=== PATIENT | female | born 2000 | race African-American/Black ===

== ENCOUNTER 2024-01-07 10:55 | Inpatient (IN) | payer MEDICAID, SELFPAY ==
[2024-01-07] VITALS (7 sets, daily range): BP systolic 105–142; BP diastolic 45–88; PULSE 72–112; TEMP 36.8–37.1; O2SAT 96–98; BMI 15.4; BMI 15.9; BMI 15.7
--- NOTE | 2024-01-07 11:37 | US_ITS ---
[address] [address] Patient Name: ELIZABETH BARKER MRN: [id number] date: 2000 Sex: F Assigned Patient Location: ER Current Patient Location: ER Accession/Order Number: [id number] Exam Date: 01/07/2024 12:15 Report Date: 01/07/2024 13:00 At the request of: EDMOND LIVE Procedure: US OB limited EXAMINATION: US OB limited HISTORY: pelvic pain COMPARISON: No relevant comparison available. FINDINGS: position: Breech presentation, variable lie CRL: 6.71 cm, 13 weeks, 0 days Placenta: Anterior, the placenta covers the internal os. Grade 0. No intraplacental or retroplacental echogenic abnormality Heart rate: 170 beats minute Cervix: 3.9 cm, closed Clinical age: 30 weeks 3 days Clinical STAN: 07/11/2024 Ultrasound age: 30 weeks 0 days Ultrasound STAN: 07/14/2024 US/US OB limited IMPRESSION: Complete placenta previa Electronically authenticated by: DEMETRIUS BURNS Date: 01/07/2024 13:00
[2024-01-07] MEDS: 0.9 % SODIUM CHLORIDE 1,000 ML 999 ML IV (11:55)
[2024-01-07] MEDS: MORPHINE SULFATE 2 MG/ML SYRINGE IV (11:56)
[2024-01-07] MEDS: ONDANSETRON PF 4 MG/2 ML VIAL IV ×2 (11:56→23:33)
--- NOTE | 2024-01-07 11:58 | ED_ITS ---
HPI HPI - General Adult General Chief complaint: Abdominal Pain Stated complaint: ABDOMINAL PAIN Time Seen by Provider: 01/07/24 10:59 Source: patient Mode of arrival: Wheelchair Limitations: no limitations History of Present Illness HPI narrative: at 14 weeks presents to ED complaining of abdominal pain nausea and vomiting. Apparently this has been an issue for her since the beginning of her . She has had multiple visits and also hospital admission for acute nausea vomiting and abdominal pain. She last had an ultrasound 2 weeks ago that was normal at that time. She denies any loss of fluid, blood clots or vaginal bleeding. She does report severe lower abdominal cramping. Patient is mildly tachycardic and appears mildly dehydrated. Family reports that she has had low potassium during this because of her inability to keep anything down. She saw her [employer] [employer] this morning and they sent her over here for further evaluation. Patient is alert and oriented but complains of lower abdominal cramping and pain. No back pain. No chest pain no shortness of breath. Patient has not started vitamins yet because she has been unable to keep them down. No fevers no concerns for UTI or STDs. No symptoms of STD or UTI. Mom reports she was okay at home for about 4 5 days and now she is back to intractable nausea vomiting and lower stomach pain. Related Data Home Medications ?Medication ?Instructions ?Recorded ?Confirmed No Known Home Medications 01/07/24 01/07/24 Allergies Allergy/AdvReac Type Severity Reaction Status Date / Time No Known Drug Allergies Allergy Verified 01/07/24 11:42 Opioid HPI Opioid Management Most Recent Opioid Data: Last Pain Scale 4 01/07/24 11:56 01/07/24 Last MAR Pain Assessment 01/07/24 11:56 Review of Systems ROS Status of ROS 10 or more systems reviewed and unremark able except as noted in history and below [facility] Medical History (Updated 01/07/24 @ 14:26 by Betsy Hernandez DO) Constipation ?K59.00 - Constipation, unspecified (ICD-10) Social History Little interest or pleasure in doing things: not at all Feeling down, depressed, or hopeless: not at all Exam Narrative Exam Narrative: Time Seen: [] Vital Signs: [Per nurse's notes.] General: [Alert] mild distress from lower abdominal pain. Patient is thin Skin: [Warm, dry, no rash.] Head: [Normocephalic, atraumatic.] Neck: [Supple, trachea midline.] Eye: [Pupils are equal, round and reactive to light, extraocular movements are intact, normal conjunctiva.] Ears, nose, mouth and throat: oral mucosa moist. Cardiovascular: [Mild tachycardia, no murmur.] Respiratory: [Lungs are clear to auscultation, respirations are non-labored, breath sounds are equal.] Chest wall: [No tenderness, no deformity.] Gastrointestinal: [Soft, mild suprapubic tenderness, non distended, normal bowel sounds.] MSK: 5 out of 5 muscle strength x 4 extremities no calf pain or edema Lymphatics: [No lymphadenopathy.] Psychiatric: [Cooperative, appropriate mood & affect.] Neurological: [Alert and oriented to person, place, time, and situation, no focal neurological deficit observed.] Constitutional Vital Signs, click to edit/add: Last Vital Signs Temp 98.2 F 01/07/24 11:32 Pulse 102 H 01/07/24 11:32 Resp 18 01/07/24 11:32 BP 113/69 01/07/24 11:32 Pulse Ox 96 01/07/24 11:32 O2 Del Method Room Air 01/07/24 11:32 Course Vital Signs Vital signs: Vital Signs Temperature 98.8 F 01/07/24 10:59 Pulse Rate 112 H 01/07/24 10:59 Respiratory Rate 20 01/07/24 10:59 Blood Pressure 142/88 H 01/07/24 10:59 Pulse Oximetry 96 01/07/24 10:59 Oxygen Delivery Method Room Air 01/07/24 10:59 Temperature 98.2 F 01/07/24 11:32 Pulse Rate 102 H 01/07/24 11:32 Respiratory Rate 18 01/07/24 11:32 Blood Pressure 113/69 01/07/24 11:32 Pulse Oximetry 96 01/07/24 11:32 Oxygen Delivery Method Room Air 01/07/24 11:32 Medical Decision Making MDM Narrative Medical decision making narrative: Patient's labs show a low potassium and low magnesium. This is most likely from her persistent nausea vomiting. I called and spoke to Dr. Wilkins who requests medicine admit and they can consult him if necessary. Ultrasound other than placenta previa. There is nothing to do for the placenta previa at this point. Normal heart tones. Patient has no right lower quadrant pain or right upper quadrant pain. She reports that the pain is suprapubic and seems to be low down in the pelvic area where her uterus would be. No flank pain. patient continues to deny any vaginal bleeding. Patient and family are comfortable care plan for admission for rehydration and replenishment of her potassium and magnesium. Dr. Moore will admit Differential Diagnosis Differential Diagnosis: Hypokalemia hypomagnesemia dehydration threatened miscarriage hyperemesis g Lab Data Lab results reviewed: Yes I reviewed the patient's lab results Labs: Lab Results 01/07/24 Range/Units 11:50 WBC 15.2 H (4.0-11.0) 10^3/uL RBC 3.76 L (4.20-5.40) 10^6/uL Hgb 11.7 L (12.0-16.0) g/dL Hct 33.3 L (36.0-48.0) % MCV 88.6 (81.0-99.0) fL MCH 31.1 (26.7-34.0) pg MCHC 35.1 (29.9-35.2) g/dL RDW 14.0 (11.0-15.0) % Plt Count 275 (150-450) 10^3/uL MPV 10.2 (9.5-13.5) fL Neut % (Auto) 90.3 H (43.0-75.0) % Lymph % (Auto) 5.5 L (20.5-60.0) % [place] % (Auto) 3.4 (1.7-12.0) % Eos % (Auto) 0.0 L (0.9-7.0) % Baso % (Auto) 0.1 L (0.2-2.0) % Neut # (Auto) 13.7 H (1.4-6.5) 10^3/uL Lymph # (Auto) 0.8 L (1.2-3.8) 10^3/uL [place] # (Auto) 0.5 (0.3-0.8) 10^3/uL Eos # (Auto) 0.0 (0.0-0.7) 10^3/uL Baso # (Auto) 0.0 (0.0-0.1) 10^3/uL Abs Immat Gran (auto) 0.10 H (0.00-0.03) 10^3/uL Imm/Tot Granulo (auto) 0.7 H (0.0-0.5) % Sodium 139 (136-145) mmol/L Potassium 2.9 L* (3.5-5.1) mmol/L Chloride 99 (98-107) mmol/L Carbon Dioxide 22.2 (21.0-32.0) mmol/L Anion Gap 20.7 BUN 7.0 (7.0-18.0) mg/dL Creatinine 0.66 (0.55-1.02) mg/dL Est GFR ( Amer) >60 (>=60 mL/min/1.73m^2) Est GFR (Non-Af Amer) >60 (>=60 mL/min/1.73m^2) BUN/Creatinine Ratio 10.6 Glucose 117 H (74-106) mg/dL Calcium 9.4 (8.5-10.1) mg/dL Magnesium 1.7 L (1.8-2.4) mg/dL Total Bilirubin 0.9 (0.2-1.0) mg/dL AST 15 (15-37) U/L ALT 42 (14-59) U/L Alkaline Phosphatase 39 L (46-116) U/L Total Protein 7.3 (6.4-8.2) g/dL Albumin 4.0 (3.4-5.0) g/dL Globulin 3.3 g/dL Albumin/Globulin Ratio 1.2 Imaging Data US - abdomen: Radiologist's impression: ITS Impressions Obstetrics Ultrasound 01/07/24 11:37 IMPRESSION: Complete placenta previa Electronically authenticated by: DEMETRIUS BURNS Date: 01/07/2024 13:00 Discharge Plan Discharge Chief Complaint: Abdominal Pain Clinical Impression: Hyperemesis gravidarum, Hypokalemia, Hypomagnesemia Patient Disposition: Admitted as Observation Time of Disposition Decision: 14:26 Condition: Fair Prescriptions / Home Meds: No Action No Known Home Medications Print Language: Turkish Referrals: BROOKE SILVER [Primary Care Provider] - 1 week
[2024-01-07 12:17] LABS: Basophils Percent Auto 0.1 % (0.2-2.0); Hematocrit 33.3 % (36.0-48.0); Hemoglobin 11.7 g/dL (12.0-16.0); Immature Granulocytes Pct Auto 0.7 % (0.0-0.5); Lymphocytes Absolute Auto 0.8 10^3/uL (1.2-3.8); Lymphocytes Percent Auto 5.5 % (20.5-60.0); Mean Corpuscular HGB Conc 35.1 g/dL (29.9-35.2); Mean Corpuscular Hemoglobin 31.1 pg (26.7-34.0); Mean Corpuscular Volume 88.6 fL (81.0-99.0); Mean Platelet Volume 10.2 fL (9.5-13.5); Monocytes Absolute Auto 0.5 10^3/uL (0.3-0.8); Monocytes Percent Auto 3.4 % (1.7-12.0); Neutrophils Absolute Auto 13.7 10^3/uL (1.4-6.5); Neutrophils Percent Auto 90.3 % (43.0-75.0); Platelet Count 275 10^3/uL (150-450); Red Blood Count 3.76 10^6/uL (4.20-5.40); White Blood Count 15.2 10^3/uL (4.0-11.0)
[2024-01-07 12:36] LABS: Alanine Aminotransferase 42 U/L (14-59); Albumin Globulin Ratio 1.2; Alkaline Phosphatase 39 U/L (46-116); Anion Gap 20.7; Aspartate Amino Transferase 15 U/L (15-37); BUN Creatinine Ratio 10.6; Bilirubin Total 0.9 mg/dL (0.2-1.0); Calcium 9.4 mg/dL (8.5-10.1); Carbon Dioxide 22.2 mmol/L (21.0-32.0); Chloride 99 mmol/L (98-107); Estimated GFR (African America >60 (>=60 mL/min/1.73m^2); Estimated GFR (Non-African Ame >60 (>=60 mL/min/1.73m^2); Globulin 3.3 g/dL; Glucose 117 mg/dL (74-106); Sodium 139 mmol/L (136-145); Total Protein 7.3 g/dL (6.4-8.2)
[2024-01-07 12:44] LABS: Potassium 2.9 mmol/L (3.5-5.1)
[2024-01-07 13:04] LABS: Magnesium 1.7 mg/dL (1.8-2.4)
[2024-01-07] MEDS: POTASSIUM CHLORIDE 10 MEQ/100 ML WATER PREMIX 100 MEQ IV ×4 (13:04→16:58)
[2024-01-07] MEDS: MAGNESIUM SULFATE IN WATER 2 GM/50 ML PREMIX IV (14:34)
--- NOTE | 2024-01-07 15:27 | P.HP_ITS ---
HPI H&P: HPI History of Present Illness Chief complaint: ABDOMINAL PAIN HYPEREMESIS GRAVIDARU HYPOKALEMIA Narrative: Presented to the emergency room with increasing nausea vomiting. She is approximately 13 weeks . She has had issues with hyperemesis throughout the . In the emergency room found to have significant hypokalemia hypomagnesemia with leukocytosis. Patient will be admitted for workup and treatment of same. I saw patient up in the medical surgical floor, she indicated she had run out of her antinausea medication. She is feeling better with the IV medications and fluid is provided so far. Will reevaluate electrolytes later on tonight and in a.m. Opioid HPI Opioid Management Most Recent Pain and Opioid Data: Last Pain Scale 4 01/07/24 11:56 01/07/24 Last MAR Pain Assessment 01/07/24 11:56 Review of Systems ROS Status of ROS 10 or more systems reviewed and unremark able except as noted in history and below [facility] Medical History (Updated 01/07/24 @ 14:26 by Betsy Hernandez DO) Constipation ?K59.00 - Constipation, unspecified (ICD-10) Social History Little interest or pleasure in doing things: not at all Feeling down, depressed, or hopeless: not at all Meds Home Medications and Allergies Home Medications ?Medication ?Instructions ?Recorded ?Confirmed ?Type No Known Home Medications 01/07/24 01/07/24 History Allergies Allergy/AdvReac Type Severity Reaction Status Date / Time No Known Drug Allergies Allergy Verified 01/07/24 11:42 Exam Constitutional Vital Signs, click to edit/add: Last Vital Signs Temp 98.2 F 01/07/24 11:32 Pulse 102 H 01/07/24 11:32 Resp 18 01/07/24 11:32 BP 113/69 01/07/24 11:32 Pulse Ox 96 01/07/24 11:32 O2 Del Method Room Air 01/07/24 11:32 Documenting provider has reviewed patient's vital signs: yes Common normals: no apparent distress Chest Common normals: inspection of chest normal Respiratory Common normals: normal respiratory effort and no retractions Cardio Common normals: regular rate and regular rhythm; murmurs detected Heart sounds: murmur systolic GI Common normals: Normal to inspection, nondistended, normoactive bowel sounds present, soft to palpation and non-tender Results Labs Labs: Short CBC 01/07/24 Range/Units 11:50 WBC 15.2 H (4.0-11.0) 10^3/uL Hgb 11.7 L (12.0-16.0) g/dL Hct 33.3 L (36.0-48.0) % Plt Count 275 (150-450) 10^3/uL BMP 01/07/24 11:50 Sodium 139 Potassium 2.9 L* Chloride 99 Carbon Dioxide 22.2 BUN 7.0 Creatinine 0.66 Glucose 117 H Calcium 9.4 Liver Function 01/07/24 Range/Units 11:50 Total Bilirubin 0.9 (0.2-1.0) mg/dL AST 15 (15-37) U/L ALT 42 (14-59) U/L Alkaline Phosphatase 39 L (46-116) U/L Albumin 4.0 (3.4-5.0) g/dL Assessment and Plan Assessment and Plan (1) Hypomagnesemia: (2) Hypokalemia: (3) Hyperemesis gravidarum: (4) Constipation: Plan Admission findings: 13 weeks with significant hyperemesis resulting in tachycardia, hypokalemia, hypomagnesemia, leukocytosis with left shift likely demargination from the hyperemesis. Dehydration with hypokalemia and hypomagnesemia-those have been supplemented, continue with hydration. Repeat labs later on tonight and in a.m. Leukocytosis-likely demargination from the hyperemesis that she has no other infection symptoms. Checking urinalysis. Admission status: Patient with hyperemesis syndrome related to but resulting in hypokalemia and hypomagnesemia. She is likely to be improved in the morning. Medically necessary treatment likely to span 1 midnight. Observational status.
[2024-01-07 16:22] LABS: Lactate/Lactic Acid 2.5 mmol/L (0.4-2.0)
[2024-01-07 16:55] LABS: Anion Gap 17.7; BUN Creatinine Ratio 13.3; Calcium 8.8 mg/dL (8.5-10.1); Chloride 100 mmol/L (98-107); Estimated GFR (African America >60 (>=60 mL/min/1.73m^2); Estimated GFR (Non-African Ame >60 (>=60 mL/min/1.73m^2); Glucose 81 mg/dL (74-106); Potassium 3.7 mmol/L (3.5-5.1); Sodium 134 mmol/L (136-145)
[2024-01-07] MEDS: 0.9 % SODIUM CHLORIDE 1,000 ML 125 ML IV ×2 (16:58→23:33)
[2024-01-07] MEDS: MAGNESIUM OXIDE 400 MG TABLET PO (16:58)
[2024-01-07 17:03] LABS: Lactate/Lactic Acid 0.8 mmol/L (0.4-2.0)
[2024-01-07 18:50] LABS: Bilirubin Urine NEGATIVE (NEGATIVE); Blood Urine NEGATIVE (NEGATIVE); Clarity Urine CLEAR (CLEAR); Color Urine YELLOW (YELLOW); Glucose Urine UA NEGATIVE (NEGATIVE); Ketones Urine >=80 mg/dL (NEGATIVE); Leukocyte Esterase Urine NEGATIVE (NEGATIVE); Nitrite Urine NEGATIVE (NEGATIVE); Protein Urine 30 mg/dL (NEG/TRACE); Specific Gravity Urine >=1.030 (1.005-1.025)
[2024-01-07 19:03] LABS: Bacteria Urine NONE SEEN #/HPF (NONE SEEN); Cast Seen? SEEN #/LPF (NONE SEEN); Crystals Seen? None Seen #/HPF (None Seen); Hyaline Casts Urine RARE; Mucus Urine LARGE (NONE SEEN); RBC Urine 0-2 #/HPF (0-2); Squamous Epithelial Cell Urine MODERATE #/LPF (NONE/RARE); Urine Culture Indicated YES
[2024-01-08] VITALS (11 sets, daily range): BP systolic 103–136; BP diastolic 47–78; PULSE 68–85; TEMP 36.3–37.6; O2SAT 96–99
[2024-01-08 05:30] LABS: Basophils Percent Auto 0.3 % (0.2-2.0); Hematocrit 26.1 % (36.0-48.0); Hemoglobin 8.8 g/dL (12.0-16.0); Immature Granulocytes Abs Auto 0.07 10^3/uL (0.00-0.03); Immature Granulocytes Pct Auto 0.6 % (0.0-0.5); Lymphocytes Percent Auto 16.7 % (20.5-60.0); Mean Corpuscular HGB Conc 33.7 g/dL (29.9-35.2); Mean Corpuscular Hemoglobin 30.9 pg (26.7-34.0); Mean Corpuscular Volume 91.6 fL (81.0-99.0); Monocytes Absolute Auto 0.5 10^3/uL (0.3-0.8); Monocytes Percent Auto 4.4 % (1.7-12.0); Neutrophils Absolute Auto 9.3 10^3/uL (1.4-6.5); Platelet Count 198 10^3/uL (150-450); Red Blood Count 2.85 10^6/uL (4.20-5.40); Red Cell Distribution Width 14.3 % (11.0-15.0); White Blood Count 11.9 10^3/uL (4.0-11.0)
[2024-01-08 05:40] LABS: Anion Gap 15.1; BUN Creatinine Ratio 8.7; Calcium 8.4 mg/dL (8.5-10.1); Carbon Dioxide 21.2 mmol/L (21.0-32.0); Chloride 103 mmol/L (98-107); Estimated GFR (African America >60 (>=60 mL/min/1.73m^2); Estimated GFR (Non-African Ame >60 (>=60 mL/min/1.73m^2); Glucose 75 mg/dL (74-106); Potassium 3.3 mmol/L (3.5-5.1); Sodium 136 mmol/L (136-145)
[2024-01-08] MEDS: ACETAMINOPHEN 500 MG TABLET 1000 MG PO ×2 (08:13→20:32)
[2024-01-08] MEDS: 0.9 % SODIUM CHLORIDE 1,000 ML 125 ML IV ×2 (08:13→16:32)
[2024-01-08] MEDS: MAGNESIUM OXIDE 400 MG TABLET PO (08:13)
--- NOTE | 2024-01-08 08:40 | CM.NOTE ---
Rounds made with Dr. Moore, pt denies anymore nausea or emesis. Pt will discharge to home today and f/u with PCP.
--- NOTE | 2024-01-08 08:59 | P.DS_ITS ---
DS: Providers Provider Date of admission: 01/07/24 15:05 Primary care physician: BROOKE SILVER Consults: 01/07/24 Consult to Dietitian Routine Reason for consultation: weight loss with DS: Diagnosis Discharge Diagnosis (1) Hypomagnesemia: (2) Hypokalemia: (3) Hyperemesis gravidarum: (4) Constipation: Plan Admission findings: 13 weeks with significant hyperemesis resulting in tachycardia, hypokalemia, hypomagnesemia, leukocytosis with left shift likely demargination from the hyperemesis. Dehydration with hypokalemia and hypomagnesemia-those have been supplemented, continue with hydration. Repeat labs later on tonight and in a.m. Leukocytosis-likely demargination from the hyperemesis that she has no other infection symptoms. Checking urinalysis. Admission status: Patient with hyperemesis syndrome related to but resulting in hypokalemia and hypomagnesemia. She is likely to be improved in the morning. Medically necessary treatment likely to span 1 midnight. Observational status. ? DS: Summary Status at Discharge Overall status at discharge: patient is not back to baseline Time Spent with Patient Time attestation: Total time spent providing and/or coordinating discharge services: Time spent: greater than 30 minutes Exam Constitutional Vital Signs, click to edit/add: Last Vital Signs Temp 97.4 F L 01/08/24 08:15 Pulse 77 01/08/24 08:15 Resp 16 01/08/24 08:15 BP 136/78 01/08/24 08:15 Pulse Ox 98 01/08/24 08:15 O2 Del Method Room Air 01/08/24 08:15 DS: Data Data Completed and Pending Labs on day of discharge: Labs from last 24 hours 01/08/24 01/07/24 01/07/24 05:00 18:35 16:35 WBC 11.9 H RBC 2.85 L Hgb 8.8 L Hct 26.1 L MCV 91.6 MCH 30.9 MCHC 33.7 RDW 14.3 Plt Count 198 MPV 10.0 Neut % (Auto) 78.0 H Lymph % (Auto) 16.7 L [place] % (Auto) 4.4 Eos % (Auto) 0.0 L Baso % (Auto) 0.3 Neut # (Auto) 9.3 H Lymph # (Auto) 2.0 [place] # (Auto) 0.5 Eos # (Auto) 0.0 Baso # (Auto) 0.0 Abs Immat Gran (auto) 0.07 H Imm/Tot Granulo (auto) 0.6 H Sodium 136 134 L Potassium 3.3 L 3.7 Chloride 103 100 Carbon Dioxide 21.2 20.0 L Anion Gap 15.1 17.7 BUN 4.0 L 6.0 L Creatinine 0.46 L 0.45 L Est GFR ( Amer) >60 >60 Est GFR (Non-Af Amer) >60 >60 BUN/Creatinine Ratio 8.7 13.3 Glucose 75 81 Lactate 0.8 Calcium 8.4 L 8.8 Magnesium Total Bilirubin AST ALT Alkaline Phosphatase Total Protein Albumin Globulin Albumin/Globulin Ratio Lipase Urine Color Yellow Urine Clarity Clear Urine pH 6.0 Ur Specific [place] >=1.030 A Urine Protein 30 A Urine Glucose (UA) Negative Urine Ketones >=80 A Urine Occult Blood Negative Urine Nitrite Negative Urine Bilirubin Negative Urine Urobilinogen 1.0 Ur Leukocyte Esterase Negative Urine RBC 0-2 Urine WBC 5-10 A Ur Squamous Epith Cells Moderate A Urine Crystals None seen Urine Bacteria None seen Urine Casts Seen A Hyaline Casts Rare Urine Mucus Large A Ur Culture Indicated? Yes 01/07/24 11:50 WBC 15.2 H RBC 3.76 L Hgb 11.7 L Hct 33.3 L MCV 88.6 MCH 31.1 MCHC 35.1 RDW 14.0 Plt Count 275 MPV 10.2 Neut % (Auto) 90.3 H Lymph % (Auto) 5.5 L [place] % (Auto) 3.4 Eos % (Auto) 0.0 L Baso % (Auto) 0.1 L Neut # (Auto) 13.7 H Lymph # (Auto) 0.8 L [place] # (Auto) 0.5 Eos # (Auto) 0.0 Baso # (Auto) 0.0 Abs Immat Gran (auto) 0.10 H Imm/Tot Granulo (auto) 0.7 H Sodium 139 Potassium 2.9 L* Chloride 99 Carbon Dioxide 22.2 Anion Gap 20.7 BUN 7.0 Creatinine 0.66 Est GFR ( Amer) >60 Est GFR (Non-Af Amer) >60 BUN/Creatinine Ratio 10.6 Glucose 117 H Lactate 2.5 H* Calcium 9.4 Magnesium 1.7 L Total Bilirubin 0.9 AST 15 ALT 42 Alkaline Phosphatase 39 L Total Protein 7.3 Albumin 4.0 Globulin 3.3 Albumin/Globulin Ratio 1.2 Lipase 18.0 Urine Color Urine Clarity Urine pH Ur Specific [place] Urine Protein Urine Glucose (UA) Urine Ketones Urine Occult Blood Urine Nitrite Urine Bilirubin Urine Urobilinogen Ur Leukocyte Esterase Urine RBC Urine WBC Ur Squamous Epith Cells Urine Crystals Urine Bacteria Urine Casts Hyaline Casts Urine Mucus Ur Culture Indicated? Discharge Plan Discharge Disposition: Home, Self-Care Condition: Fair Discharge Medications: New ondansetron 4 mg tablet,disintegrating 4 mg PO Q6H PRN (Reason: nausea and vomiting) Qty: 60 11RF ferrous sulfate 325 mg (65 mg iron) tablet,delayed release (DR/EC) 325 mg PO BID Qty: 60 11RF Print Language: Cape Verdean Forms: Portal Instructions
[2024-01-08] MEDS: POTASSIUM CHLORIDE 10 MEQ ER TABLET 20 MEQ PO ×2 (10:31→20:33)
[2024-01-08] MEDS: ONDANSETRON PF 4 MG/2 ML VIAL IV ×2 (10:52→20:33)
[2024-01-08 15:49] LABS: Magnesium 1.8 mg/dL (1.8-2.4)
[2024-01-08] MEDS: POTASSIUM CHLORIDE 40 MEQ in 0.9 % SODIUM CHLORIDE 250 ML 67.5 MEQ IV (16:30)
[2024-01-08] MEDS: METOCLOPRAMIDE HCL 10 MG/2 ML VIAL IVP ×2 (16:32→20:33)
--- NOTE | 2024-01-08 18:39 | DIETREC ---
Diet consult completed; provided info on clear liquid and full liquid diets for use when experiencing N/V. Recommend starting with CL, advancing to FL and then soft foods as tolerated. Recommend 237 mL Ensure Original TID between meals or as meal replacement to add nutrients, as she is underweight and . Will continue to follow PRN.
--- NOTE | 2024-01-08 18:49 | P.PN_ITS ---
Progress Note: Subjective Subjective Interval history: Patient does feel little bit better but it has been early and she has not tried to eat anything yet this morning. Exam Constitutional Vital Signs, click to edit/add: Last Vital Signs Temp 98.5 F 01/08/24 16:16 Pulse 78 01/08/24 16:16 Resp 16 01/08/24 16:16 BP 136/68 01/08/24 16:16 Pulse Ox 99 01/08/24 16:16 O2 Del Method Room Air 01/08/24 16:16 Documenting provider has reviewed patient's vital signs: yes Common normals: no apparent distress Chest Common normals: inspection of chest normal Respiratory Common normals: normal respiratory effort and no retractions Cardio Common normals: regular rate and regular rhythm; murmurs detected Heart sounds: murmur systolic GI Common normals: Normal to inspection, nondistended, normoactive bowel sounds present, soft to palpation and non-tender Progress Note: Objective Labs Labs: Short CBC 01/08/24 Range/Units 05:00 WBC 11.9 H (4.0-11.0) 10^3/uL Hgb 8.8 L (12.0-16.0) g/dL Hct 26.1 L (36.0-48.0) % Plt Count 198 (150-450) 10^3/uL BMP 01/08/24 05:00 Sodium 136 Potassium 3.3 L Chloride 103 Carbon Dioxide 21.2 BUN 4.0 L Creatinine 0.46 L Glucose 75 Calcium 8.4 L Urine 01/07/24 Range/Units 18:35 Urine Color Yellow (YELLOW) Urine Clarity Clear (CLEAR) Urine pH 6.0 (5.0-9.0) Ur Specific [place] >=1.030 A (1.005-1.025) Urine Protein 30 A (NEG/TRACE) mg/dL Urine Glucose (UA) Negative (NEGATIVE) mg/dL Progress Note: A&P Assessment and Plan (1) Hypomagnesemia: (2) Hypokalemia: (3) Hyperemesis gravidarum: (4) Constipation: Plan Admission findings: 13 weeks with significant hyperemesis resulting in tachycardia, hypokalemia, hypomagnesemia, leukocytosis with left shift likely demargination from the hyperemesis. Dehydration with hypokalemia and hypomagnesemia-hypokalemia is improved as well as the hypomagnesemia but patient still continues to have hyperemesis, reviewed symptoms with nursing staff this afternoon, added Eliana, gave 1 dose of IV high magnesium and potassium. Reeval in a.m. Leukocytosis-likely demargination from the hyperemesis that she has no other infection symptoms.-Improving, urinalysis possibly positive but with negative nitrates would hold off on treatment till culture returns Admission status: Patient was hyperemesis during this significant dehydration with severe hypokalemia and hypomagnesemia, those levels are better but patient continues to have nausea vomiting. She was initially placed in observation. Having failed initial observational time. She will be changed to inpatient status.
[2024-01-08] MEDS: MAGNESIUM SULFATE IN WATER 2 GM/50 ML PREMIX IV (20:32)
[2024-01-09 00:38] VITALS: BP 111/56; PULSE 76; TEMP 36.8; O2SAT 94
[2024-01-09] MEDS: METOCLOPRAMIDE HCL 10 MG/2 ML VIAL IVP ×2 (03:59→09:24)
[2024-01-09 04:13] VITALS: BP 113/51; PULSE 82; TEMP 36.8; O2SAT 97
[2024-01-09 05:06] LABS: Basophils Percent Auto 0.3 % (0.2-2.0); Eosinophils Percent Auto 0.1 % (0.9-7.0); Hematocrit 27.1 % (36.0-48.0); Immature Granulocytes Abs Auto 0.06 10^3/uL (0.00-0.03); Immature Granulocytes Pct Auto 0.5 % (0.0-0.5); Lymphocytes Absolute Auto 2.9 10^3/uL (1.2-3.8); Lymphocytes Percent Auto 26.2 % (20.5-60.0); Mean Corpuscular HGB Conc 33.2 g/dL (29.9-35.2); Mean Corpuscular Hemoglobin 30.8 pg (26.7-34.0); Mean Corpuscular Volume 92.8 fL (81.0-99.0); Mean Platelet Volume 10.2 fL (9.5-13.5); Monocytes Absolute Auto 0.6 10^3/uL (0.3-0.8); Monocytes Percent Auto 5.5 % (1.7-12.0); Neutrophils Absolute Auto 7.4 10^3/uL (1.4-6.5); Neutrophils Percent Auto 67.4 % (43.0-75.0); Platelet Count 181 10^3/uL (150-450); Red Blood Count 2.92 10^6/uL (4.20-5.40); Red Cell Distribution Width 14.3 % (11.0-15.0); White Blood Count 10.9 10^3/uL (4.0-11.0)
[2024-01-09 05:23] LABS: BUN Creatinine Ratio 6.7; Calcium 7.8 mg/dL (8.5-10.1); Carbon Dioxide 17.7 mmol/L (21.0-32.0); Chloride 107 mmol/L (98-107); Estimated GFR (African America >60 (>=60 mL/min/1.73m^2); Estimated GFR (Non-African Ame >60 (>=60 mL/min/1.73m^2); Glucose 59 mg/dL (74-106); Potassium 3.7 mmol/L (3.5-5.1); Sodium 140 mmol/L (136-145)
[2024-01-09 07:42] VITALS: BP 110/53; PULSE 83; TEMP 36.7; O2SAT 98
[2024-01-09] MEDS: 0.9 % SODIUM CHLORIDE 1,000 ML 125 ML IV ×2 (07:52)
--- NOTE | 2024-01-09 08:19 | CM.NOTE ---
Rounds made with Dr. Moore. Potential discharge today if tolerates po intake. Follow up with [facility] [facility].
--- NOTE | 2024-01-09 09:04 | P.DS_ITS ---
DS: Providers Provider Date of admission: 01/08/24 18:51 Primary care physician: BROOKE RODRIGUEZ Consults: 01/07/24 Consult to Dietitian Routine Reason for consultation: weight loss with DS: Diagnosis Discharge Diagnosis (1) Hypomagnesemia: (2) Hypokalemia: (3) Hyperemesis gravidarum: (4) Constipation: Plan Admission findings: 13 weeks with significant hyperemesis resulting in tachycardia, hypokalemia, hypomagnesemia, leukocytosis with left shift likely demargination from the hyperemesis. Dehydration with hypokalemia and hypomagnesemia-hypokalemia is improved as well as the hypomagnesemia but patient still continues to have hyperemesis, reviewed symptoms with nursing staff this afternoon, added Reglan, gave 1 dose of IV high magnesium and potassium. Reeval in a.m. Leukocytosis-likely demargination from the hyperemesis that she has no other infection symptoms.-Improving, urinalysis possibly positive but with negative nitrates would hold off on treatment till culture returns Admission status: Patient was hyperemesis during this significant dehydration with severe hypokalemia and hypomagnesemia, those levels are better but patient continues to have nausea vomiting. She was initially placed in observation. Having failed initial observational time. She will be changed to inpatient status. ? DS: Summary Hospital Course Hospital Course: Patient 13 weeks presented to the emergency room increasing nausea vomiting. Unable to control that in the emergency room. She has 6 significant hypokalemia and hypomagnesemia. She was given IV boluses of those. The following day she still with significant emesis. Unable to control her nausea vomiting requiring Reglan. Reglan did not seem to be effective. She was able to eat breakfast this morning. With that she feels improved. At this point we will discharge patient to home in improving condition. Medications see list. Follow-up with OB within the next few days. Status at Discharge Overall status at discharge: patient is back to baseline Time Spent with Patient Time attestation: Total time spent providing and/or coordinating discharge services: Time spent: greater than 30 minutes Exam Constitutional Vital Signs, click to edit/add: Last Vital Signs Temp 98.0 F 01/09/24 07:42 Pulse 83 01/09/24 07:42 Resp 16 01/09/24 07:42 BP 110/53 01/09/24 07:42 Pulse Ox 98 01/09/24 07:42 O2 Del Method Room Air 01/09/24 07:42 Documenting provider has reviewed patient's vital signs: yes Common normals: no apparent distress Chest Common normals: inspection of chest normal Respiratory Common normals: normal respiratory effort and no retractions Cardio Common normals: regular rate and regular rhythm; murmurs detected Heart sounds: murmur systolic GI Common normals: Normal to inspection, nondistended, normoactive bowel sounds present, soft to palpation and non-tender DS: Data Data Completed and Pending Labs on day of discharge: Labs from last 24 hours 01/09/24 01/08/24 04:37 05:00 WBC 10.9 RBC 2.92 L Hgb 9.0 L Hct 27.1 L MCV 92.8 MCH 30.8 MCHC 33.2 RDW 14.3 Plt Count 181 MPV 10.2 Neut % (Auto) 67.4 Lymph % (Auto) 26.2 [place] % (Auto) 5.5 Eos % (Auto) 0.1 L Baso % (Auto) 0.3 Neut # (Auto) 7.4 H Lymph # (Auto) 2.9 [place] # (Auto) 0.6 Eos # (Auto) 0.0 Baso # (Auto) 0.0 Abs Immat Gran (auto) 0.06 H Imm/Tot Granulo (auto) 0.5 Sodium 140 Potassium 3.7 Chloride 107 Carbon Dioxide 17.7 L Anion Gap 19.0 BUN 3.0 L Creatinine 0.45 L Est GFR ( Amer) >60 Est GFR (Non-Af Amer) >60 BUN/Creatinine Ratio 6.7 Glucose 59 L Calcium 7.8 L Magnesium 1.8 Discharge Plan Discharge Disposition: Home, Self-Care Condition: Fair Discharge Medications: New ondansetron 4 mg tablet,disintegrating 4 mg PO Q6H PRN (Reason: nausea and vomiting) Qty: 60 11RF ferrous sulfate 325 mg (65 mg iron) tablet,delayed release (DR/EC) 325 mg PO BID Qty: 60 11RF metoclopramide HCl [Reglan] 5 mg tablet 5 mg PO ACHS Qty: 60 11RF Activity: resume usual activities as tolerated Diet: advance to your usual diet Print Language: Croatian Patient Instructions: Iron Supplements (By mouth), Metoclopramide (By mouth), Ondansetron (By mouth), Hyperemesis Gravidarum (DC) Forms: Portal Instructions Follow Up Appointments: @ 9:30am with Dr. Rodriguez [phone] Discharge Date/Time: 01/09/24 11:52
[2024-01-09] MEDS: POTASSIUM CHLORIDE 10 MEQ ER TABLET 20 MEQ PO (09:24)
[2024-01-09] MEDS: MAGNESIUM OXIDE 400 MG TABLET PO (09:24)
--- NOTE | 2024-01-13 11:49 | CM.DCFOLLOWU ---
1st attempt 01/13/24, no answer
--- NOTE | 2024-01-14 15:05 | CM.DCFOLLOWU ---
2nd attempt 01/14/24, no answer
== END 2024-01-09 11:52 | disposition home or self-care (01) | DRG 566 ==
LOC: ER 14:26 → MS 15:36
PROVIDERS: Admitting Provider Family Medicine; Emergency Provider Emergency Medicine; PCP Family Medicine; Visit Provider Family Medicine
DX: O21.0 Mild hyperemesis gravidarum (principal); O99.891 Other specified diseases and conditions complicating pregnancy; O26.891 Other specified pregnancy related conditions, first trimester; O99.281 Endocrine, nutritional and metabolic diseases complicating pregnancy, first trimester; E83.42 Hypomagnesemia; E86.0 Dehydration; E87.6 Hypokalemia; K59.00 Constipation, unspecified; D72.829 Elevated white blood cell count, unspecified; Z3A.13 13 weeks gestation of pregnancy
CPT/HCPCS: 36415; 76815; 80048; 80053; 81001; 83605; 83690; 83735; 85025; 87086; 94761; 96361; 96365; 96366; 96368; 96375; 96376; 99285; G0378; J2270; J2405; J2765; J3475; J3480

== ENCOUNTER 2024-01-31 09:35 | Outpatient (OUT) | payer OTHER, SELFPAY ==
--- NOTE | 2024-01-31 | US_ITS ---
[address] [address] Patient Name: ELIZABETH BARKER MRN: [id number] date: 2000 Sex: F Assigned Patient Location: US Current Patient Location: Accession/Order Number: [id number] Exam Date: 01/31/2024 09:41 Report Date: 02/01/2024 04:52 At the request of: RENNY MARTINES Procedure: US OB anatomy EXAMINATION: US OB anatomy HISTORY: Related Condition COMPARISON: Ultrasound OB limited 01/07/2024 TECHNIQUE: Transabdominal sonographic examination was performed for obstetrical and evaluation. FINDINGS: Number: 1 Heart Rate: 153.41 bpm Amniotic Fluid Volume: Subjectively normal Placental Location: ANTERIOR with lower margin 3.4 cm from internal os. Cervix Length: 3.66 cm ; closed. ANATOMY: Normal Structures -cerebellum, choroid plexus, cisterna magna, lateral cerebral ventricles, orbits, midline falx, hard palate, RVOT, LVOT, stomach, kidneys, bladder, three-vessel cord, cervical spine, thoracic spine, lumbar spine, sacral spine, right upper extremity, left upper extremity, right lower extremity, left lower extremity. SUBOPTIMALLY SEEN: Abdominal cord insertion of umbilical cord. ABNORMALITIES: Echogenic focus within the left cardiac ventricle. BIOMETRY: BPD: 3.60 cm; 17 weeks 0 days; 57.40 % HC: 13.74 cm; 17 weeks 1 day; 55.80 % AC: 11.58 cm; 17 weeks 2 days; 66.60 % FL: 2.20 cm; 16 weeks 4 days; 34.20 % EFW:177.14 g; 52.60 % FL/AC: 19.00 FL/BPD: 61.19 HC/AC: 1.19 GESTATIONAL AGE: Age by EDC: 16 weeks 6 days Age by current US: 17 weeks 0 days STAN by current US: 2024-07-10 STAN by EDC: 2024-07-11 US/US OB anatomy IMPRESSION: 1. Single live intrauterine with growth detailed above. 2. Echogenic focus within the left cardiac ventricle; nonspecific but typically associated with the trisomy syndromes. No additional suspicious anatomic finding. 3. Inadequate visualization of the umbilical cord abdominal insertion into to position. Electronically authenticated by: MARGARITO DOMINGUEZ Date: 02/01/2024 04:52
== END 2024-01-31 09:36 | disposition home or self-care (01) ==
LOC: US 09:35
PROVIDERS: PCP Family Medicine; Visit Provider Midwife
DX: O26.92 Pregnancy related conditions, unspecified, second trimester (principal); Z3A.17 17 weeks gestation of pregnancy
CPT/HCPCS: 76805

== ENCOUNTER 2024-02-21 11:28 | Outpatient (OUT) | payer OTHER, SELFPAY ==
--- NOTE | 2024-02-21 11:30 | US_ITS ---
The [address] [address] Patient Name: ELIZABETH BARKER MRN: [facility]:[id number] date: 2000 Sex: F Assigned Patient Location: US Current Patient Location: US Accession/Order Number: [id number] Exam Date: 02/21/2024 11:45 Report Date: 02/21/2024 16:22 At the request of: RENNY MARTINES Procedure: US OB incomplete anatomy EXAM: US OB incomplete anatomy HISTORY: Related Condition Second Trimester O26.92 COMPARISON: Ultrasound OB anatomy 01/31/2024 TECHNIQUE: Transabdominal ultrasound FINDINGS: Heart rate: 151 bpm Amniotic fluid: Subjectively normal Placenta: Anterior with lower margin 1.0 cm from internal os. Anatomy: Echogenic focus within left cardiac ventricle. Adequate visualization of abdominal cord insertion. GA: 20 weeks 2 days STAN: 07/08/2024 US/US OB incomplete anatomy IMPRESSION: 1. Single live intrauterine . 2. Echogenic focus within left cardiac ventricle; nonspecific but can be associated with the trisomy syndromes. 3. No appreciable abnormality of the abdominal cord insertion. 4. Placenta appears to be low lying on today's study, but wasn't on prior study. This could be due to contraction, but no significant contraction is appreciated. Consider follow-up. Electronically authenticated by: MARGARITO DOMINGUEZ Date: 02/21/2024 16:22
--- OUTSIDE RECORDS SUMMARY | 2024-02-21 11:32 | XMS_ITS | CCD ---
Author Organization [facility] Inform ion Partnership [facility] Care Team Providers Care Mill Supervisor Name Role Phone MD Paulina Rodriguez Primary Care Provider DO Telly Moreno Emergency Provider [phone] Unavailable Primary Care Provider Paulina Bean MD Primary Care Provider RENNY GIL Attending Unavailable RENNY GIL Attending Unavailable RENNY GIL Attending Unavailable Medications Current Medications Medication Drug Class(es) Dates Sig (Normalized) Sig (Original) docusate sodium 100 mg oral capsule (4 sources) Start: 12-13-2023 docusate sodium (Colace) 100 MG capsule 100 mg 12/13/2023 Active ferrous sulfate 325 mg delayed release oral tablet (6 sources) Start: 01-28-2024 End: 01-27-2025 take 1 tablet by mouth once in the morning ferrous sulfate (Fe Tabs) 325 (65 Fe) MG EC tablet Indications: Anemia during in second trimester Take 1 tablet (325 mg) by mouth in the morning and 1 tablet (325 mg) in the evening. Take with meals. Do not crush, chew, or split.. 60 tablet 6 01/28/2024 01/27/2025 Active take 1 tablet by mouth at mealti me ferrous sulfate 325 (65 Fe) MG tablet Take 325 mg by mouth in the morning. Take with meals. Active metoclopramide 10 mg oral tablet (4 sources) Dopamine-2 Receptor Antagonist Start: 12-20-2023 metoclopramide (Reglan) 10 MG tablet Take by mouth every 6 (six) hours 12/20/2023 Active ondansetron 4 mg disintegrating oral tablet (4 sources) Serotonin-3 Receptor Antagonist Start: 12-20-2023 take 2 tablets by mouth every eight hours as needed ondansetron ODT (Zofran-ODT) 4 MG disintegrating tablet Take 8 mg by mouth every 8 (eight) hours if needed 12/20/2023 Active MV & Min w/FA-DHA ( Gummies) 0.18-25 MG chewable tablet (4 sources) Start: 01-14-2024 End: 02-13-2024 MV & Min w/FA-DHA ( Gummies) 0.18-25 MG chewable tablet Indications: examination or test, positive result Chew 1 tablet Daily 30 tablet 11 01/14/2024 02/13/2024 Active Vit-Fe Fumarate-FA ( Vitamins) 28-0.8 MG tablet (2 sources) Start: 01-28-2024 End: 01-27-2025 take 1 tablet by mouth once daily Vit-Fe Fumarate-FA ( Vitamins) 28-0.8 MG tablet Indications: 16 weeks gestation of Take 1 tablet by mouth Daily 30 tablet 11 01/28/2024 01/27/2025 Active Problems Problem Classification Problem Date Documented Da te Episodic/Chronic Abdominal pain (1 source) Abdominal pain; Translations: [Unspecified abdominal pain] 10-19-2021 Episodic Other complications of (2 sources) Anemia of ; Translations: [Anemia complicating , second trimester] 01-28-2024 Chronic Other complications of (2 sources) Hyperemesis gravidarum; Translations: [Mild hyperemesis gravidarum] 01-14-2024 Episodic Other complications of (2 sources) Finding related to ; Translations: [ related conditions, unspecified, second trimester] 01-28-2024 Episodic Other and delivery including normal (6 sources) Second trimester ; Translations: [Encounter for supervision of normal first , second trimester] 01-14-2024 Episodic Residual codes; unclassified (2 sources) Gestation period, 16 weeks; Translations: [16 weeks gestation of ] 01-28-2024 Episodic Results Test Name Value Interpretation Reference Range Facil ity Automated erythrocytes count in urine sediment (number/area)Ordered By: Telly Moreno on 10-19-2021 RBC Auto (Urine sed) [#/Area] 0-1 [HPF] 0-4 [facility] Automated leukocytes count i n urine sediment (number/area)Ordered By: Tellyrosalind Moreno on 10-19-2021 WBC Auto (Urine sed) [#/Area] 1-2 [HPF] 0-4 [facility] Bilirubin Test strip Ql (U)O rdered By: Telly Kwonzi on 10-19-2021 Bilirubin Ql (U) Negative Negative [facility] Color Auto (U)Ordered By: Armani Moreno on 10-19-2021 Color (U) Yellow Yellow [facility] Dipstick and Microscopicon 0 10-19-2021 Appearance (U) Clear Normal Clear [facility] Comment on above: Order Comment: Name Collection Type:: Clean-Voided Midstream Performed By: #### U HCG, ADDONUAPLUS #### [facility] [address] [id number] [place] Bacteria,Urine None Seen Normal None Seen [facility] Comment on above: Order Comment: Name Collection Type:: Clean-Voided Midstream Performed By: #### U HCG, ADDONUAPLUS #### [facility] [address] [id number] [place] Bilirubin,Urine Negative Normal Negative [facility] Comment on above: Order Comment: Name Collection Type:: Clean-Voided Midstream Performed By: #### U HCG, ADDONUAPLUS #### [facility] [address] [place] [address] [place] Color (U) Yellow Normal Yellow [facility] Comment on above: Order Comment: Name Collection Type:: Clean-Voided Midstream Performed By: #### U HCG, ADDONUAPLUS #### [facility] [address] [place] [address] [place] Glucose Ql (U) Normal Normal Normal [facility] Comment on above: Order Comment: Name Collection Type:: Clean-Voided Midstream Performed By: #### U HCG, ADDONUAPLUS #### [facility] [address] [id number] [place] Hyaline Casts,Urine 0-8 Normal 0-8 [facility] Comment on above: Order Comment: Name Collection Type:: Clean-Voided Midstream Performed By: #### U HCG, ADDONUAPLUS #### [address] Ketones Ql (U) Trace High Negative [facility] Comment on above: Order Comment: Name Collection Type:: Clean-Voided Midstream Performed By: #### U HCG, ADDONUAPLUS #### [address] Leukocyte esterase Test strip Ql (U) Negative Normal Negative [facility] Comment on above: Order Comment: Name Collection Type:: Clean-Voided Midstream Performed By: #### U HCG, ADDONUAPLUS #### [place] [address] [place] Nitrite,Urine Negative Normal Negative [facility] Comment on above: Order Comment: Name Collection Type:: Clean-Voided Midstream Performed By: #### U HCG, ADDONUAPLUS #### [address] Occult Blood,Urine Trace High Negative [facility] Comment on above: Order Comment: Name Collection Type:: Clean-Voided Midstream Performed By: #### U HCG, ADDONUAPLUS #### [address] pH (U) 6.5 [pH] Normal 5.0-9.0 [facility] Comment on above: Order Comment: Name Collection Type:: Clean-Voided Midstream Performed By: #### U HCG, ADDONUAPLUS #### [place] [address] [place] Protein,Urine Trace High Negative [facility] Comment on above: Order Comment: Name Collection Type:: Clean-Voided Midstream Performed By: #### U HCG, ADDONUAPLUS #### [place] [address] [place] RBC LM.HPF (Urine sed) [#/Area] 0 /[HPF] Normal 0-4 [facility] Comment on above: Order Comment: Name Collection Type:: Clean-Voided Midstream Performed By: #### U HCG, ADDONUAPLUS #### [facility] [address] [place] [address] Specificy [place],Urine 1.030 Normal 1.001-1.030 [facility] Comment on above: Order Comment: Name Collection Type:: Clean-Voided Midstream Performed By: #### U HCG, ADDONUAPLUS #### [facility] [address] [place] [address] Squamous Epithelial Cell,Urine 3-4 High 0-2 [facility] Comment on above: Order Comment: Name Collection Type:: Clean-Voided Midstream Performed By: #### U HCG, ADDONUAPLUS #### [facility] [address] [place] [address] Urobilinogen,Urine >=[address] [facility] Comment on above: Order Comment: Name Collection Type:: Clean-Voided Midstream Performed By: #### U HCG, ADDONUAPLUS #### [facility] [address] [place] [address] WBC,Urine 1-2 Normal 0-4 [facility] Comment on above: Order Comment: Name Collection Type:: Clean-Voided Midstream Performed By: #### U HCG, ADDONUAPLUS #### [facility] [address] [place] [address] HCG ( test) IA.rapi d Ql (U)Ordered By: PABLO WHITFIELD on 10-19-2021 HCG ( test) Ql (U) Negative [facility] HCG,Urineon 10-19-2021 Beta HCG ( test) Ql (U) Negative Normal [facility] Comment on above: Order Comment: Name Collection Type:: Clean-Voided Midstream Result Comment: PERF ORMED BY: [address] [place] [address] PATHOLOGIST [employer] ADJUSTER MELVA KUHN M.D. Performed By: #### U HCG, ADDONUAPLUS #### [facility] [address] [place] [address] Ketones Auto test strip (U) [Mass/Vol]Ordered By: Telly Moreno on 10-19-2021 Ketones (U) [Mass/Vol] Trace Negative [facility] - UrinalysisOrder ed By: Telly Moreno on 10-19-2021 Hyaline casts LM Ql (Urine sed) 0-8 [LPF] 0-8 [facility] Nitrite Test strip Ql (U)Ord ered By: Telly Moreno on 10-19-2021 Nitrite Ql (U) Negative Negative [facility] Protein Auto test strip (U) [Mass/Vol]Ordered By: Telly Moreno on 10-19-2021 Protein (U) [Mass/Vol] Trace mg/dL Negative F [facility] Specific gravity Auto test s trip (U) [Rel density]Ordered By: Telly Moreno on 10-19-2021 Specific gravity (U) [Rel density] 1.030 1.001-1.030 [facility] Squamous epithelial cells de tection in urine sediment by light microscopyOrdered By: Telly Moreno on 10-19-2021 Epithelial cells.squamous LM Ql (Urine sed) 3-4 [HPF] 0-2 [facility] Urine bacteria detection by automated methodOrdered By: Telly Moreno on 10-19-2021 Bacteria Auto Ql (U) None seen None Seen [facility] Urine clarity by refractomet ry automatedOrdered By: Telly Moreno on 10-19-2021 Clarity Refractometry automated (U) Clear Clear [facility] Urine glucose measurement by automated test strip (mass/volume)Ordered By: Telly Moreno on 10-19-2021 Glucose Auto test strip (U) [Mass/Vol] Normal mg/dL Normal [facility] Urine hemoglobin detection b y automated test stripOrdered By: Telly Moreno on 10-19-2021 Hemoglobin Auto test strip Ql (U) Trace Negative [facility] Urine leukocyte esterase det ection by automated test stripOrdered By: Telly Moreno on 10-19-2021 Leukocyte esterase Auto test strip Ql (U) Negative Negative [facility] Urobilinogen Auto test strip (U) [Mass/Vol]Ordered By: Telly Moreno on 10-19-2021 Urobilinogen (U) [Mass/Vol] mg/dL Normal [facility] pH Auto test strip (U)Ordere d By: Telly Moreno on 10-19-2021 pH (U) 6.5 [pH] 5.0-9.0 [facility] Vital Signs Date Time Vital Sign Value Performing Clinician Facility 01-28-2024 09:26-0500 Body mass index (BMI) [Ratio] 17.68 kg/m2 Renny WEAVER Work Phone: [facility] 01-28-2024 09:26-0500 Body weight 46.72 kg Renny WEAVER Work Phone: [facility] 01-14-2024 08:56-0500 Body mass index (BMI) [Ratio] 15.45 kg/m2 Renny Gil CN Work Phone: [facility] 01-14-2024 08:56-0500 Body weight 40.82 kg Renny WEAVERM Work Phone: [facility] 01-14-2024 08:56-0500 Diastolic blood pressure 70 mm[Hg] Renny WEAVER Work Phone: [facility] 01-14-2024 08:56-0500 Systolic blood pressure 110 mm[Hg] Renny WEAVER Work Phone: [facility] 10-19-2021 20:03-0400 Body temperature 99 [degF] MD Paulina Rodriguez Work Phone: [facility] 10-19-2021 20:03-0400 Diastolic blood pressure 56 mm[Hg] MD Paulina Rodriguez Work Phone: [facility] 10-19-2021 20:03-0400 Heart rate 70 /min MD Paulina Rodriguez Work Phone: [facility] 10-19-2021 20:03-0400 Respiratory rate 18 /min MD Paulina Rodriguez Work Phone: [facility] 10-19-2021 20:03-0400 SaO2% (BldA) [Mass fraction] 99 % MD Paulina Rodriguez Work Phone: [facility] 10-19-2021 20:03-0400 Systolic blood pressure 118 mm[Hg] MD Paulina Rodriguez Work Phone: [facility] 10-19-2021 17:13-0400 Body height 157.48 cm MD Paulina Rodriguez Work Phone: [facility] 10-19-2021 17:130400 Body weight 52.45 kg MD Paulina Rodriguez Work Phone: [facility] Encounters Encounter Date Encounter Type Care Provider Facility Start: 01-28-2024 ambulatory RENNY Soledad NORMANO Not Rosio ilable Start: 01-28-2024 End: 01-28-2024 Subsequent care visit Renny Normano CNM Work Phone: [facility] Comment on above: Anemia during pregna ncy in second trimester (Primary Dx); related condition in second trimester; 16 weeks gestation of Start: 01-14-2024 End: 01-14-2024 Bamboo flowsheet Renny L Floro CNM Work Phone: [facility] Start: 01-14-2024 End: 01-14-2024 Bamboo flowsheet Renny L Estero CNM Work Phone: [facility] Start: 01-14-2024 End: 01-14-2024 ambulatory RENNY Soledad NORMANO Not Available Start: 01-14-2024 End: 01-14-2024 Initial care visit Renny Normano CNM Work Phone: [facility] Comment on above: GA: 14w6d Start: 01-07-2024 End: 01-07-2024 Bamboo flowsheet Renny L Floro CNM Work Phone: [facility] Start: 01-07-2024 End: 01-07-2024 Bamboo flowsheet Renny L Floro CNM Work Phone: [facility] Start: 01-07-2024 End: 01-07-2024 ambulatory RENNY GIL Not Available Start: 12-31-2023 End: 12-31-2023 Telephone encounter Renny Gil CNJonathan Work Phone: [facility] Start: 10-19-2021 End: 10-19-2021 Emergency department patient visit MD Paulina Rodriguez Work Phone: [facility] Plan of Treatment Date Care Activity Detail Author Start: 02-27-2024 End: 02-27-2024 Patient encounter procedure 02/27/2024 8:30 AM EST Routine [facility] [address] [place] [id number] Renny Gil, CNM [address] [place] [address] [facility] Start: 01-28-2024 End: 01-27-2025 US for US OB 14+ weeks anatomy scan Imaging Routine related condition in second trimester Expected: 01/28/2024, Expires: 01/27/2025 [facility] Work Phone: Comment on above: Expected: 01/28/2024 , Expires: 01/27/2025 Start: 01-28-2024 End: 01-28-2024 Patient encounter procedure 01/28/2024 8:30 AM EST Routine [facility] [address] [place] [id number] Renny Gil, CNM [address] [place] [address] [facility] Start: 01-15-2024 End: 01-15-2024 ambulatory 01/15/2024 1:00 PM EST Initial [facility] [address] [place] [id number] Renny Gil, ALEIDA [address] [place] [address] [facility] Start: 01-14-2024 End: 2025 ABO/Rh ABO/Rh Lab Routine examination or test, positive result Expected: 01/14/2024 (Approximate), Expires: 2025 [facility] Comment on above: Expected: 01/14/2024 (Approximate), Expires: 2025 Start: 01-14-2024 End: 2025 Antibody screen Antibody screen Lab Routine examination or test, positive result Expected: 01/14/2024 (Approximate), Expires: 2025 [facility] Comment on above: Expected: 01/14/2024 (Approximate), Expires: 2025 Start: 01-14-2024 End: 2025 Bacteria identified in Urine by Culture Urine culture Microbiology Routine examination or test, positive result Expected: 01/14/2024 (Approximate), Expires: 2025 [facility] Comment on above: Expected: 01/14/2024 (Approximate), Expires: 2025 Start: 01-14-2024 End: 2025 CBC panel - Blood by Automated count CBC Lab Routine examination or test, positive result Expected: 01/14/2024 (Approximate), Expires: 2025 [facility] Comment on above: Expected: 01/14/2024 (Approximate), Expires: 2025 Start: 01-14-2024 End: 2025 DRUG TOX MONITORIGN 6 W/ CONF,URINE DRUG TOX MONITORIGN 6 W/ CONF,URINE Lab Routine examination or test, positive result Expected: 01/14/2024 (Approximate), Expires: 2025 [facility] Comment on above: Expected: 01/14/2024 (Approximate), Expires: 2025 Start: 01-14-2024 End: 2025 Hemoglobin A1c/Hemoglobin.total in Blood Hemoglobin A1c Lab Routine examination or test, positive result Expected: 01/14/2024 (Approximate), Expires: 2025 [facility] Comment on above: Expected: 01/14/2024 (Approximate), Expires: 2025 Start: 01-14-2024 End: 2025 Hepatitis B virus surface Ag [Presence] in Serum or Plasma by Immunoassay Hepatitis B surface antigen Lab Routine examination or test, positive result Expected: 01/14/2024 (Approximate), Expires: 2025 [facility] Work Phone: Comment on above: Expected: 01/14/2024 (Approximate), Expires: 2025 Start: 01-14-2024 End: 2025 Hepatitis C virus Ab [Presence] in Serum or Plasma by Immunoassay Hepatitis C antibody Lab Routine examination or test, positive result Expected: 01/14/2024 (Approximate), Expires: 2025 [facility] Comment on above: Expected: 01/14/2024 (Approximate), Expires: 2025 Start: 01-14-2024 End: 2025 HIV-1/HIV-2 antigen/antibody combination immunoassay HIV-1 and HIV-2 antibodies Lab Routine examination or test, positive result Expected: 01/14/2024 (Approximate), Expires: 2025 [facility] Comment on above: Expected: 01/14/2024 (Approximate), Expires: 2025 Start: 01-14-2024 End: 2025 Neisseria gonorrhoeae DNA [Presence] in Cervical mucus by DARYL with probe detection C. trachomatis / N. gonorrhoeae, DNA probe Pathology and Cytology Routine examination or test, positive result Expected: 01/14/2024 (Approximate), Expires: 2025 [facility] Comment on above: Expected: 01/14/2024 (Approximate), Expires: 2025 Start: 01-14-2024 End: 2025 Reagin Ab [Presence] in Serum by RPR RPR Lab Routine examination or test, positive result Expected: 01/14/2024 (Approximate), Expires: 2025 [facility] Comment on above: Expected: 01/14/2024 (Approximate), Expires: 2025 Start: 01-14-2024 End: 2025 Rubella antibody, IgG Rubella antibody, IgG Lab Routine examination or test, positive result Expected: 01/14/2024 (Approximate), Expires: 2025 [facility] Comment on above: Expected: 01/14/2024 (Approximate), Expires: 2025 Start: 01-14-2024 End: 2025 TSH W/REFLEX TO FT4 TSH W/REFLEX TO FT4 Lab Routine examination or test, positive result Expected: 01/14/2024 (Approximate), Expires: 2025 [facility] Comment on above: Expected: 01/14/2024 (Approximate), Expires: 2025 Start: 01-14-2024 End: 2025 URINALYSIS MICROSCOPIC URINALYSIS MICROSCOPIC Lab Routine examination or test, positive result Expected: 01/14/2024 (Approximate), Expires: 2025 [facility] Comment on above: Expected: 01/14/2024 (Approximate), Expires: [address]25 [address] [facility] Work Phone: Payers Date Payer Category Payer Medicaid [place] [id number] 2023 Medicaid [id number] 2022 Private Health Insurance [employer] [id number] 2022 Unknown [id number] 2002 Unknown [id number] 2002 Unknown [id number] 2002 Unknown [id number] Social History Date Type Detail Facility Start: 10-19-2021 End: 01-07-2024 Tobacco smoking status NHIS Never smoked tobacco (finding) [facility] Start: 2000 Sex Assigned At Female F [facility] Tobacco smoking stat us OHIS Tobacco smoking consumption unknown [facility] Start: 2002 Sex assigned at Not on file [facility] Start: 01-07-2024 Gender identity Not on file [facility] Start: 01-07-2024 Tobacco use and exposure Smokeless tobacco non-user [facility] Start: 01-07-2024 Alcoholic beverage intake Ex-drinker (finding) [facility] Start: 01-07-2024 History of Social function [facility] Start: 10-16-2023 [facility] History of Present illness Narrative 01-28-2024 Renny Gil CNM - 01/28/2024 9:15 AM EST Note Date & Type Note Facility 01-28-2024 History of Presen t illness Narrative Subjective No chief complaint on file. Jacqui Preston is a 24 y.o. at 16w6d with a working estimated date of delivery of 07/08/2024, by Ultrasound who presents for a routine visit. She denies vaginal bleeding, leakage of fluid, decreased movements, or contractions. OB History Para Term AB Living 1 SAB IAB Ectopic Multiple Live Births # Outcome Date GA Lbr Jomar/2nd Weight Sex Type Anes PTL Lv 1 Current Her is complicated by: hyperemesis gravidarum, marijuana use The following portions of the chart were reviewed this encounter and updated as appropriate: Objective Physical Exam weight: 103 lb Expected Total Weight Gain: 27 lb-39 lb Pregravid BMI: 14.93 Urine protein-negative Urine glucose- Labs: reviewed Imaging Assessment/Plan Continue vitamin. Labs reviewed. Rhogam GTT . Follow up in 2 weeks for a routine visit. documented in this encounter [facility] History of Present illness Narrative 01-14-2024 Renny Gil CNM - 01/14/2024 8:45 AM EST Note Date & Type Note Facility 01-14-2024 History of Presen t illness Narrative Subjective No chief complaint on file. Jacqui Preston is a 24 y.o. at 14w6d with a working estimated date of delivery of 07/08/2024, by Ultrasound who presents for a routine visit. She denies vaginal bleeding, leakage of fluid, decreased movements, or contractions. OB History Para Term AB Living 1 SAB IAB Ectopic Multiple Live Births # Outcome Date GA Lbr Jomar/2nd Weight Sex Type Anes PTL Lv 1 Current Her is complicated by: pt was admitted at the [facility] last week. She states she is feeling better Hyperemesis gravidarum The following portions of the chart were reviewed this encounter and updated as appropriate: Objective Physical Exam weight: 90 lb Expected Total Weight Gain: 27 lb-39 lb Pregravid BMI: 14.93 BP: 110/70 Urine protein Urine glucose Labs: reviewed Imaging Assessment/Plan Diagnoses and all orders for this visit: Hyperemesis affecting , antepartum Encounter for care of first , second trimester examination or test, positive result - Hepatitis B surface antigen; Future - Rubella antibody, IgG; Future - CBC; Future - Antibody screen; Future - RPR; Future - Hemoglobin A1c; Future - TSH W/REFLEX TO FT4; Future - HIV-1 and HIV-2 antibodies; Future - ABO/Rh; Future - DRUG TOX MONITORIGN 6 W/ CONF,URINE; Future - Hepatitis C antibody; Future - Urine culture; Future - URINALYSIS MICROSCOPIC; Future - C. trachomatis / N. gonorrhoeae, DNA probe; Future - MV & Min w/FA-DHA ( Gummies) 0.18-25 MG chewable tablet; Chew 1 tablet Daily vitamin- begin today. RX sent to [facility]. Gummies sent as patient states she cannot swallow big pills easily. Labs drawn today GTT at 28 weeks Follow up in 2 weeks for a routine visit. documented in this encounter [facility] Telephone encounter Note 12-31-2023 Telephone Encounter - Ana Beckwith - 12/31/2023 2:45 PM EST Note Date & Type Note Facility 12-31-2023 Telephone encount er Note Pt called to schedule an appt with Clare. She has had 1 us and 0 . Pt states she is 13 wks tomorrow. [facility] Note 12-31-2023 Telephone Encounter - Ana Beckwith - 12/31/2023 2:45 PM EST Note Date & Type Note Facility 12-31-2023 Miscellaneous Notes Formattin g of this note might be different from the original. Pt called to schedule an appt with Clare. She has had 1 us and 0 . Pt states she is 13 wks tomorrow. documented in this encounter [facility] Evaluation note Note Date & Type Note Facility Evaluation note No assessment information availa [facility] Work Phone: Evaluation note Note Date & Type Note Facility Evaluation note Diagnosis Hyperemesis affecting , antepartum- Primary Encounter for care of first , second trimester examination or test, positive result documented in this encounter [facility] Evaluation note Note Date & Type Note Facility Evaluation note Diagnosis Anemia during in second trimester- Primary related condition in second trimester 16 weeks gestation of documented in this encounter [facility] Chief Complaint and Reason for Visit Chief Complaint Abd pain Advance Directives No Advanced Directives Records Found Advance Directive Response Recorded Date/ Time Advance Directives No October 19, 2021 7:56pm Summary Purpose Family History No Family History Records FoundNo Family History Records Found Additional Source Comments Care Teams (unrecognized sec tion and content) Team Status: Inactive Member Role Status Dates Paulina Rodriguez MD Primary Care Provider Active Telly Moreno DO Emergency Provider Active Team Status: Active Member Role Status Dates Paulina Rodriguez MD Primary Care Provider Active [place] Supervisor Relationship Specialty Start Date End Date Paulina Rodriguez MD [address] [place] [address] PCP - General Family Medicine 01/14/24 Mill Supervisor Relationship Specialty Start Date End Date Paulina Rodriguez MD [address] [place] [address] PCP - General Family Medicine 01/14/24 Mill Supervisor Relationship Specialty Start Date End Date Paulina Rodriguez MD [address] [place] [address] PCP - General Family Medicine 01/14/24 Goals (unrecognized section and content) Goals may be documented in a n alternate section INFORMATION SOURCE (unrecogn ized section and content) DATE CREATED AUTHOR 11/02/2021 [facility] DATE CREATED AUTHOR ARMANI AN 01/29/2024 [facility] EPIC FOR RECORDS PERTAINING TO PATIENTS WHO ARE OR HAVE BEEN ENROLLED IN A CHEMICAL DEPENDENCY/SUBSTANCEABUSE PROGRAM, SOME INFORMATION MAY BE OMITTED. This clinical summary was aggregated from multiple sources. Caution should be exercised in using it in the provision of clinical care. This summary normalizes information from multiple sources, and as a consequence, information in this document may materially change the coding, format and clinical context of patient data. In addition, data may be omitted in some cases. CLINICAL DECISIONS SHOULD BE BASED ON THE PRIMARY CLINICAL RECORDS. [facility] [employer] [facility]. provides no warranty or guarantee of the accuracy or completeness of information in this document.
== END 2024-02-21 11:29 | disposition home or self-care (01) ==
LOC: US 11:28
PROVIDERS: PCP Family Medicine; Visit Provider Midwife
DX: O26.92 Pregnancy related conditions, unspecified, second trimester (principal); Z3A.20 20 weeks gestation of pregnancy
CPT/HCPCS: 76815

== ENCOUNTER 2024-03-03 08:05 | Outpatient (OUT) | payer OTHER, MEDICAID, SELFPAY ==
--- NOTE | 2024-03-03 08:11 | US_ITS ---
[facility] [place] [id number] Patient Name: ELIZABETH BARKER MRN: [id number] date: 2000 Sex: F Assigned Patient Location: US Current Patient Location: US Accession/Order Number: [id number] Exam Date: 03/03/2024 08:12 Report Date: 03/03/2024 09:19 At the request of: RENNY MARTINES Procedure: US OB placenta EXAMINATION: US OB placenta HISTORY: Low Lying Placenta COMPARISON: Ultrasound OB incomplete anatomy 02/21/2024, ultrasound OB anatomy 01/31/2024 FINDINGS: PLACENTA: Anterior, grade 0, with lower margin 3.9 cm from os. Heterogeneous hypoechoic 2.3 cm area within the placenta is suspected to represent a venous lockett. HEART RATE: 148 bpm OTHER: None. US/US OB placenta IMPRESSION: 1. Anterior placenta with lower margin 3.9 cm from os. Electronically authenticated by: MARGARITO DOMINGUEZ Date: 03/03/2024 09:19
== END 2024-03-03 08:06 | disposition home or self-care (01) ==
PROVIDERS: PCP Family Medicine; Visit Provider Midwife
DX: O44.42 Low lying placenta NOS or without hemorrhage, second trimester (principal); Z3A.21 21 weeks gestation of pregnancy
CPT/HCPCS: 76815

== ENCOUNTER 2024-04-09 11:29 | Observation (INO) | payer OTHER, SELFPAY ==
[2024-04-09] VITALS (20 sets, daily range): BP systolic 102–136; BP diastolic 57–75; PULSE 57–86; TEMP 36.6; O2SAT 98–100
--- OUTSIDE RECORDS SUMMARY | 2024-04-09 11:31 | XMS_ITS | CCD ---
Author Organization [facility] Care Team Providers Care [employer] Manager Name Role Phone MD Paulina Rodriguez Primary Care Provider DO Telly Moreno Emergency Provider [phone] Unavailable Primary Care Provider Naldo Rodriguez MD, Paulina Gage Primary Care Provider [phone] RENNY GIL Attending Unavailable FLORORENNY Attending Unavailable FLORORENNY Attending Unavailable FLORORENNY Attending Unavailable FLORORENNY Attending Unavailable Medications Current Medications Medication Drug Class(es) Dates Sig (Normalized) Sig (Original) docusate sodium 100 mg oral capsule (10 sources) Start: 12-13-2023 docusate sodium (Colace) 100 MG capsule 100 mg 12/13/2023 Active ferrous sulfate 325 mg delayed release oral tablet (18 sources) Start: 01-28-2024 End: 01-27-2025 take 1 [...] take 1 tablet by mouth at mealti or ferrous sulfate 325 (65 Fe) MG tablet Take 325 mg by mouth in the morning. Take with meals. Active metoclopramide 10 mg oral tablet (10 sources) Dopamine-2 Receptor Antagonist Start: 12-20-2023 metoclopramide (Reglan) 10 MG tablet Take by mouth every 6 (six) hours 12/20/2023 Active ondansetron 4 mg disintegrating oral tablet (10 sources) Serotonin-3 Receptor Antagonist Start: 12-20-2023 take [...] Vit-Fe Fumarate-FA ( Vitamins) 28-0.8 MG tablet (8 sources) Start: 01-28-2024 End: 01-27-2025 take 1 [...] conditions, unspecified, second trimester] 01-28-2024 Episodic Other complications of (2 sources) Vomiting of ; Translations: [Vomiting of , unspecified] 02-27-2024 Episodic Other and delivery including normal (10 sources) Second trimester ; Translations: [Encounter for supervision of normal first , second trimester] 01-14-2024 Episodic Residual codes; unclassified (2 sources) Gestation period, 16 weeks; Translations: [16 weeks gestation of ] 01-28-2024 Episodic Results Test Name Value Interpretation Reference Range Facil ity Automated erythrocytes count in urine sediment (number/area)Ordered By: Tellyrosalind Kwonzi on 10-19-2021 RBC Auto (Urine sed) [#/Area] 0-1 [HPF] 0-4 [facility] Automated leukocytes count i n urine sediment (number/area)Ordered By: Telly Moreno on 10-19-2021 WBC Auto (Urine sed) [#/Area] 1-2 [HPF] 0-4 [facility] Bilirubin Test strip Ql (U)O rdered By: Telly Moreno on 10-19-2021 Bilirubin Ql (U) Negative Negative [facility] Color Auto (U)Ordered By: Armani Moreno on 10-19-2021 Color (U) Yellow Yellow [facility] Dipstick and Microscopicon 0 10-19-2021 Appearance (U) Clear Normal Clear [facility] Comment on above: Order Comment: Name Collection Type:: Clean-Voided Midstream Performed By: #### U HCG, ADDONUAPLUS #### [facility] [address] [place] [address] [place] Bacteria,Urine None Seen Normal None Seen [facility] Comment on above: Order Comment: Name Collection Type:: Clean-Voided Midstream Performed By: #### U HCG, ADDONUAPLUS #### [facility] [address] [place] [address] [place] Bilirubin,Urine Negative Normal Negative [facility] Comment on above: Order Comment: Name Collection Type:: Clean-Voided Midstream Performed By: #### U HCG, ADDONUAPLUS #### [facility] [address] [place] [id number] [place] Color (U) Yellow Normal Yellow [facility] Comment on above: Order Comment: Name Collection Type:: Clean-Voided Midstream Performed By: #### U HCG, ADDONUAPLUS #### [facility] [address] [place] [id number] [place] Glucose Ql (U) Normal Normal Normal [facility] Comment on above: Order Comment: Name Collection Type:: Clean-Voided Midstream Performed By: #### U HCG, ADDONUAPLUS #### [facility] [address] [place] [address] Hyaline Casts,Urine 0-8 Normal 0-8 [facility] Comment on above: Order Comment: Name Collection Type:: Clean-Voided Midstream Performed By: #### U HCG, ADDONUAPLUS #### [facility] [address] [place] [address] Ketones Ql (U) Trace High Negative [facility] Comment on above: Order Comment: Name Collection Type:: Clean-Voided Midstream Performed By: #### U HCG, ADDONUAPLUS #### [facility] [address] [place] [address] Leukocyte esterase Test strip Ql (U) Negative Normal Negative [facility] Comment on above: Order Comment: Name Collection Type:: Clean-Voided Midstream Performed By: #### U HCG, ADDONUAPLUS #### [facility] [address] [place] [address] Nitrite,Urine Negative Normal Negative [facility] Comment on above: Order Comment: Name Collection Type:: Clean-Voided Midstream Performed By: #### U HCG, ADDONUAPLUS #### [facility] [address] [place] [address] Occult Blood,Urine Trace High Negative [facility] Comment on above: Order Comment: Name Collection Type:: Clean-Voided Midstream Performed By: #### U HCG, ADDONUAPLUS #### [facility] [address] [place] [address] pH (U) 6.5 [pH] Normal 5.0-9.0 [facility] Comment on above: Order Comment: Name Collection Type:: Clean-Voided Midstream Performed By: #### U HCG, ADDONUAPLUS #### [facility] [address] [place] [address] [place] Protein,Urine Trace High Negative [facility] Comment on above: Order Comment: Name Collection Type:: Clean-Voided Midstream Performed By: #### U HCG, ADDONUAPLUS #### [facility] [address] [place] [address] [place] RBC LM.HPF (Urine sed) [#/Area] 0 /[HPF] Normal 0-4 [facility] Comment on above: Order Comment: Name Collection Type:: Clean-Voided Midstream Performed By: #### U HCG, ADDONUAPLUS #### [facility] [address] Specificy Weed,Urine 1.030 Normal 1.001-1.030 [facility] Comment on above: Order Comment: Name Collection Type:: Clean-Voided Midstream Performed By: #### U HCG, ADDONUAPLUS #### [facility] [address] Squamous Epithelial Cell,Urine 3-4 High 0-2 [facility] Comment on above: Order Comment: Name Collection Type:: Clean-Voided Midstream Performed By: #### U HCG, ADDONUAPLUS #### [facility] [address] [place] [address] Urobilinogen,Urine >=2 High Normal [facility] Comment on above: Order Comment: Name Collection Type:: Clean-Voided Midstream Performed By: #### U HCG, ADDONUAPLUS #### [facility] [address] [place] [address] WBC,Urine 1-2 Normal 0-4 [facility] Comment on above: Order Comment: Name Collection Type:: Clean-Voided Midstream Performed By: #### U HCG, ADDONUAPLUS #### [facility] [address] [place] [address] HCG ( test) IA.rapi d Ql (U)Ordered By: PROVIDER TEMP on 10-19-2021 HCG ( test) Ql (U) Negative [facility] HCG,Urineon 10-19-2021 Beta HCG ( test) Ql (U) Negative Normal [facility] Comment on above: Order Comment: Name Collection Type:: Clean-Voided Midstream Result Comment: PERF ORMED BY: [place] [address] PATHOLOGIST [employer]OL SYSTEMS SPECIALIST MELVA KUHN M.D. Performed By: #### U HCG, ADDONUAPLUS #### [facility] [address] [place] [id number] [facility] Ketones Auto test strip (U) [Mass/Vol]Ordered By: Telly Moreno on 10-19-2021 Ketones (U) [Mass/Vol] Trace Negative [facility] - UrinalysisOrder ed By: Telly Moreno on 10-19-2021 Hyaline casts LM Ql (Urine sed) 0-8 [LPF] 0-8 [facility] Nitrite Test strip Ql (U)Ord ered By: Telly Moreno on 10-19-2021 Nitrite Ql (U) Negative Negative [facility] Protein Auto test strip (U) [Mass/Vol]Ordered By: Telly Moreno on 10-19-2021 Protein (U) [Mass/Vol] Trace mg/dL Negative F [facility] Specific gravity Auto test s trip (U) [Rel density]Ordered By: Telly Moreno on 10-19-2021 Specific gravity (U) [Rel density] 1.030 1.001-1.030 [facility] Squamous epithelial cells de tection in urine sediment by light microscopyOrdered By: Telly Moreno on 10-19-2021 Epithelial cells.squamous LM Ql (Urine sed) 3-4 [HPF] 0-2 [facility] Urine bacteria detection by automated methodOrdered By: Telly Moreno on 10-19-2021 Bacteria Auto Ql (U) None seen None Seen [facility] Urine clarity by refractomet ry automatedOrdered By: Telly Moreno on 10-19-2021 Clarity Refractometry automated (U) Clear Clear [facility] Urine glucose measurement by automated test strip (mass/volume)Ordered By: Telly Moreno on 10-19-2021 Glucose Auto test strip (U) [Mass/Vol] Normal mg/dL Normal [facility] Urine hemoglobin detection b y automated test stripOrdered By: Telly Moreno on 10-19-2021 Hemoglobin Auto test strip Ql (U) Trace Negative [facility] Urine leukocyte esterase det ection by automated test stripOrdered By: Telly Moreno on 10-19-2021 Leukocyte esterase Auto test strip Ql (U) Negative Negative [facility] Urobilinogen Auto test strip (U) [Mass/Vol]Ordered By: Telly Moreno on 10-19-2021 Urobilinogen (U) [Mass/Vol] mg/dL Normal [facility] pH Auto test strip (U)Ordere d By: Telly Moreno on 10-19-2021 pH (U) 6.5 [pH] 5.0-9.0 [facility] Vital Signs Date Time Vital Sign Value Performing Clinician Facility 02-27-2024 08:33-0500 Body mass index (BMI) [Ratio] 19.4 kg/m2 Renny Floro CNM Work Phone: [facility] 02-27-2024 08:33-0500 Body weight 51.26 kg Renny Floro CNM Work Phone: [facility] 02-27-2024 08:33-0500 Diastolic blood pressure 80 mm[Hg] Renny Floro CNM Work Phone: [facility] 02-27-2024 08:33-0500 Systolic blood pressure 118 mm[Hg] Renny Floro CNM Work Phone: [facility] 01-28-2024 09:26-0500 Body mass index (BMI) [Ratio] 17.68 kg/m2 Renny Floro CNM Work Phone: [facility] 01-28-2024 09:26-0500 Body weight 46.72 kg Renny Floro CNM Work Phone: [facility] 01-14-2024 08:56-0500 Body mass index (BMI) [Ratio] 15.45 kg/m2 Renny Floro CNM Work Phone: [facility] 01-14-2024 08:56-0500 Body weight 40.82 kg Renny Floro CNM Work Phone: [facility] 01-14-2024 08:56-0500 Diastolic blood pressure 70 mm[Hg] Renny Floro CNM Work Phone: [facility] 01-14-2024 08:56-0500 Systolic blood pressure 110 mm[Hg] Renny Floro CNM Work Phone: [facility] 01-07-2024 10:21-0500 Body mass index (BMI) [Ratio] 14.93 kg/m2 Renny WEAVERM Work Phone: [facility] 01-07-2024 10:21-0500 Body weight 39.46 kg Renny WEAVERM Work Phone: [facility] 10-19-2021 20:03-0400 Body temperature 99 [degF] MD Paulina Rodriguez Work Phone: [facility] 10-19-2021 20:03-0400 Diastolic blood pressure 56 mm[Hg] MD Paulina Rodriguez Work Phone: [facility] 10-19-2021 20:03-0400 Heart rate 70 /min MD Paulina Rodriguez Work Phone: [facility] 10-19-2021 20:03-0400 Respiratory rate 18 /min MD Paulina Rodriguez Work Phone: [facility] 10-19-2021 20:03-0400 SaO2% (BldA) [Mass fraction] 99 % MD Paulina Rodriguez Work Phone: [facility] 10-19-2021 20:03-0400 Systolic blood pressure 118 mm[Hg] MD Paulina Rodriguez Work Phone: [facility] 10-19-2021 17:13-0400 Body height 157.48 cm MD Paulina Rodriguez Work Phone: [facility] 10-19-2021 17:13-0400 Body weight 52.45 kg MD Paulina Rodriguez Work Phone: [facility] Encounters Encounter Date Encounter Type Care Provider Facility Start: 04-06-2024 End: 04-06-2024 Telephone encounter Renny WEAVERM Work Phone: [facility] Start: 03-26-2024 End: 03-26-2024 ambulatory RENNY L FLORO Not Available Start: 03-26-2024 End: 03-26-2024 Bamboo flowsheet Renny L Floro CNM Work Phone: [facility] Start: 03-26-2024 End: 03-26-2024 Bamboo flowsheet Renny L Floro CNM Work Phone: [facility] Start: 02-27-2024 End: 02-27-2024 Bamboo flowsheet Renny L Floro CNM Work Phone: [facility] Start: 02-27-2024 End: 02-27-2024 Bamboo flowsheet Renny L Floro CNM Work Phone: [facility] Start: 02-27-2024 End: 02-27-2024 ambulatory RENNY L FLORO Not Available Start: 02-27-2024 End: 02-27-2024 Subsequent care visit Renny L Floro CNM Work Phone: [facility] Comment on above: Encounter for prenat al care of first , antepartum, third trimester (Primary Dx); Vomiting Start: 01-28-2024 End: 01-28-2024 ambulatory RENNY L FLORO Not Available Start: 01-28-2024 End: 01-28-2024 Subsequent care visit Renny L Floro CNM Work Phone: [facility] Comment on above: Anemia during pregna ncy in second trimester (Primary Dx); related condition in second trimester; 16 weeks gestation of Start: 01-14-2024 End: 01-14-2024 Bamboo flowsheet Renny L Floro CNM Work Phone: [facility] Start: 01-14-2024 End: 01-14-2024 Bamboo flowsheet Renny L Floro CNM Work Phone: [facility] Start: 01-14-2024 End: 01-14-2024 ambulatory RENNY L FLORO Not Available Start: 01-14-2024 End: 01-14-2024 Initial care visit Renny Gil CNM Work Phone: [facility] Comment on above: GA: 14w6d Start: 01-07-2024 End: 01-07-2024 Bamboo flowsheet Renny Normano CNM Work Phone: [facility] Start: 01-07-2024 End: 01-07-2024 Bamboo flowsheet Renny Normano CNM Work Phone: [facility] Start: 01-07-2024 End: 01-07-2024 ambulatory Renny Normano CNM Work Phone: [facility] Comment on above: GA: 13w6d Start: 12-31-2023 End: 12-31-2023 Telephone encounter Renny Gil CNM Work Phone: [facility] Start: 10-19-2021 End: 10-19-2021 Emergency department patient visit MD Paulina Rodriguez Work Phone: [facility] Plan of Treatment Date Care Activity Detail Author Start: 04-16-2024 End: 04-16-2024 Patient encounter procedure 04/16/2024 9:00 AM EST Routine [facility] [address] [place] [id number] Renny Gil CNM [address] [place] [address] [facility] Start: 03-26-2024 End: 03-26-2024 Patient encounter procedure 03/26/2024 3:45 PM EST Routine [facility] [address] [place] [id number] Renny Gil CNM [address] [place] [address] Arrived [facility] Comment on above: Arrived Start: 03-26-2024 End: 03-26-2024 Patient encounter procedure 03/26/2024 8:30 AM EST Routine [facility] [address] [place] [id number] Renny Gil, CNM [address] [place] [address] [facility] Start: 02-27-2024 End: 02-27-2024 Patient encounter procedure 02/27/2024 8:30 AM EST Routine [facility] [address] [facility] [id number] Renny Gil, CNM [address] [place] [address] [facility] Start: 01-28-2024 End: 01-27-2025 US for US OB 14+ weeks anatomy scan Imaging Routine related condition in second trimester Expected: 01/28/2024, Expires: 01/27/2025 [facility] Work Phone: Comment on above: Expected: 01/28/2024 , Expires: 01/27/2025 Start: 01-28-2024 End: 01-28-2024 Patient encounter procedure 01/28/2024 8:30 AM EST Routine [facility] [address] [place] [id number] Renny Gil, CNM [address] [place] [address] [facility] Start: 01-15-2024 End: 01-15-2024 ambulatory 01/15/2024 1:00 PM EST Initial [facility] [address] [place] [id number] Renny Gil, CNM [address] [place] [address] [facility] Start: 01-14-2024 End: 2025 ABO/Rh ABO/Rh Lab Routine examination or test, positive result Expected: 01/14/2024 (Approximate), Expires: 2025 [facility] Comment on above: Expected: 01/14/2024 (Approximate), Expires: 2025 Start: 01-14-2024 End: 2025 Antibody screen Antibody screen Lab Routine examination or test, positive result Expected: 01/14/2024 (Approximate), Expires: 2025 [facility] Comment on above: Expected: 01/14/2024 (Approximate), Expires: 2025 Start: 01-14-2024 End: 2025 Bacteria identified in Urine by Culture Urine culture Microbiology Routine examination or test, positive result Expected: 01/14/2024 (Approximate), Expires: 2025 [facility] Comment on above: Expected: 01/14/2024 (Approximate), Expires: 2025 Start: 01-14-2024 End: 2025 CBC panel - Blood by Automated count CBC Lab Routine examination or test, positive result Expected: 01/14/2024 (Approximate), Expires: 2025 [facility] Comment on above: Expected: 01/14/2024 (Approximate), Expires: 2025 Start: 01-14-2024 End: 2025 DRUG TOX MONITORIGN 6 W/ CONF,URINE DRUG TOX MONITORIGN 6 W/ CONF,URINE Lab Routine examination or test, positive result Expected: 01/14/2024 (Approximate), Expires: 2025 [facility] Comment on above: Expected: 01/14/2024 (Approximate), Expires: 2025 Start: 01-14-2024 End: 2025 Hemoglobin A1c/Hemoglobin.total in Blood Hemoglobin A1c Lab Routine examination or test, positive result Expected: 01/14/2024 (Approximate), Expires: 2025 [facility] Comment on above: Expected: 01/14/2024 (Approximate), Expires: 2025 Start: 01-14-2024 End: 2025 Hepatitis B virus surface Ag [Presence] in Serum or Plasma by Immunoassay Hepatitis B surface antigen Lab Routine examination or test, positive result Expected: 01/14/2024 (Approximate), Expires: 2025 [facility] Work Phone: Comment on above: Expected: 01/14/2024 (Approximate), Expires: 2025 Start: 01-14-2024 End: 2025 Hepatitis C virus Ab [Presence] in Serum or Plasma by Immunoassay Hepatitis C antibody Lab Routine examination or test, positive result Expected: 01/14/2024 (Approximate), Expires: 2025 [facility] Comment on above: Expected: 01/14/2024 (Approximate), Expires: 2025 Start: 01-14-2024 End: 2025 HIV-1/HIV-2 antigen/antibody combination immunoassay HIV-1 and HIV-2 antibodies Lab Routine examination or test, positive result Expected: 01/14/2024 (Approximate), Expires: 2025 [facility] Comment on above: Expected: 01/14/2024 (Approximate), Expires: 2025 Start: 01-14-2024 End: 2025 Neisseria gonorrhoeae DNA [Presence] in Cervical mucus by DARYL with probe detection C. trachomatis / N. gonorrhoeae, DNA probe Pathology and Cytology Routine examination or test, positive result Expected: 01/14/2024 (Approximate), Expires: 2025 [facility] Comment on above: Expected: 01/14/2024 (Approximate), Expires: 2025 Start: 01-14-2024 End: 2025 Reagin Ab [Presence] in Serum by RPR RPR Lab Routine examination or test, positive result Expected: 01/14/2024 (Approximate), Expires: 2025 [facility] Comment on above: Expected: 01/14/2024 (Approximate), Expires: 2025 Start: 01-14-2024 End: 2025 Rubella antibody, IgG Rubella antibody, IgG Lab Routine examination or test, positive result Expected: 01/14/2024 (Approximate), Expires: 2025 [facility] Comment on above: Expected: 01/14/2024 (Approximate), Expires: 2025 Start: 01-14-2024 End: 2025 TSH W/REFLEX TO FT4 TSH W/REFLEX TO FT4 Lab Routine examination or test, positive result Expected: 01/14/2024 (Approximate), Expires: 2025 [facility] Comment on above: Expected: 01/14/2024 (Approximate), Expires: 2025 Start: 01-14-2024 End: 2025 URINALYSIS MICROSCOPIC URINALYSIS MICROSCOPIC Lab Routine examination or test, positive result Expected: 01/14/2024 (Approximate), Expires: 2025 [facility] Comment on above: Expected: 01/14/2024 (Approximate), Expires: 2025 Patient referral [facility] Work Phone: Payers Date Payer Category Payer Medicaid [place] [id number] 2023 Medicaid [id number] 2022 Private Health Insurance [employer] [id number] 2022 Unknown [id number] 2002 Unknown [id number] 2002 Unknown [id number] 2002 Unknown [id number] 2002 Unknown [id number] 2002 Unknown [id number] Social History Date Type Detail Facility Start: 10-19-2021 End: 01-07-2024 Tobacco smoking status MEIS Never smoked tobacco (finding) [facility] Start: 2000 Sex Assigned At Female F [facility] Tobacco smoking stat us MEIS Tobacco smoking consumption unknown [facility] Start: 2002 Sex assigned at Not on file [facility] Start: 01-07-2024 Gender identity Not on file [facility] Start: 01-07-2024 Tobacco use and exposure Smokeless tobacco non-user [facility] Start: 01-07-2024 Alcoholic beverage intake Ex-drinker (finding) [facility] Start: 01-07-2024 History of Social function [facility] Start: 10-16-2023 [facility] Clinical Notes 12-31-2023 to 04-06-2024 Telephone Encounter - Bolivar Soares - 04/06/2024 9:04 AM ESTTelephone Encounter - Bolivar Soares - 04/06/2024 9:04 AM ESTTelephone Encounter - Alexandra Pantoja - 04/06/2024 8:07 AM EST Note Date & Type Note Facility 04-06-2024 Telephone encounter Note [facility] called asking for any office notes , labs,etc. I sent her labs but didn't see any office notes or other info I could send , [facility] 04-06-2024 Miscellaneous Notes [facility] called asking for any office notes , labs,etc. I sent her labs but didn't see any office notes or other info I could send , documented in this encounter [facility] 04-06-2024 Telephone encounter Note Patient calling this morning to schedule appt with Clare today. She has vomiting and pain. She is 26 weeks . She went to the [facility] ER last night and was diagnosed with flu and was told she would be better in 24 hours. She was pulling back into the same ER as we were talking- she is not feeling better. Please advise. Thank you. [facility] 04-06-2024 Miscellaneous Notes Patient calling this morning to schedule appt with Clare today. She has vomiting and pain. She is 26 weeks . She went to the [facility] ER last night and was diagnosed with flu and was told she would be better in 24 hours. She was pulling back into the same ER as we were talking- she is not feeling better. Please advise. Thank you. documented in this encounter [facility] 02-27-2024 History of Presen t illness Narrative Subjective No chief complaint on file. Jacqui Preston is a 24 y.o. at 21w1d with a working estimated date of delivery of 07/08/2024, by Ultrasound who presents for a routine visit. She denies vaginal bleeding, leakage of fluid, decreased movements, or contractions. OB History Para Term AB Living 1 SAB IAB Ectopic Multiple Live Births # Outcome Date GA Lbr Jomar/2nd Weight Sex Type Anes PTL Lv 1 Current Her is complicated by: HG but doing better now. Did have a hospitalization for hyperemesis gravidarum The following portions of the chart were reviewed this encounter and updated as appropriate: Objective Physical Exam weight: 113 lb Expected Total Weight Gain: 27 lb-39 lb Pregravid BMI: 14.93 BP: 118/80 Urine protein Urine glucose Labs: reviewed Imaging Assessment/Plan Diagnoses and all orders for this visit: Encounter for care of first , antepartum, third trimester Vomiting Patient states she is feeling much better and is gaining some weight. She does vomit at least once per day but was vomiting multiple times per day before. Continue vitamin. Labs reviewed. Rhogam GTT . Follow up in 2 weeks for a routine visit. documented in this encounter [facility] 01-28-2024 History of Presen t illness Narrative [...] a routine visit. documented in this encounter [facility] 01-14-2024 History of Presen t illness Narrative [...] complicated by: pt was admitted [facility] the [facility] week. She states she is feeling [...] Daily vitamin- begin today. RX sent to p[pacoacy. Gummies sent as patient states she cannot swallow big pills easily. Labs drawn today GTT at 28 weeks Follow up in 2 weeks for a routine visit. [facility] [facility] 01[facility]24 History of Presen t illness Narrative Subjective Jacqui Preston is a 24 y.o. at 20w6d with a working estimated date of delivery of 07/08/2024, by Ultrasound who presents for an initial visit. This is unplanned. Patient Care Team: Paulina Rodriguez MD as PCP - General (Family Medicine) OB History Para Term AB Living 1 SAB IAB Ectopic Multiple Live Births # Outcome Date GA Lbr Jomar/2nd Weight Sex Type Anes PTL Lv 1 Current Her is complicated by: Patient referred by Gynecology History Last Pap The following portions of the chart were reviewed this encounter and updated as appropriate: Review of Systems Objective Physical Exam weight: 87 lb Expected Total Weight Gain: 27 lb-39 lb Pregravid BMI: 14.93 Urine protein negative Urine glucose negative Labs ordered Assessment/Plan Diagnoses and all orders for this visit: examination or test, positive result Nurse visit today. Provider did not see today. Blue education folder given. Patient educated on safe medication list. Genetic testing information given. Discussed the do's and don'ts in the blue folder. We discussed labs and what we draw and what we are testing for. Patient is also informed that we do a urine drug test. Patient also given office phone number and [facility] number to call in case of an emergency or after hours needs. PVU and all questions answered. We did discuss place of delivery. Patient should plan to go to [facility] for all services unless an emergency and they need to go to the closest ER. We can make other arrangements possibly if patient would like to deliver at another facility but I did explain I am now at [place] 100% of the time and would like to do all deliveries there. documented in this encounter [facility] 12-31-2023 Telephone encounter Note Pt called to schedule an appt with Clare. She has had 1 us and 0 . Pt states she is 13 wks tomorrow. [facility] 12-31-2023 Miscellaneous Notes Pt called to schedule an appt with Clare. She has had 1 us and 0 . Pt states she is 13 wks tomorrow. documented in this encounter [facility] Evaluation note No assessment inform ation available [facility] Work Phone: Evaluation note Diagnosis Hyperemesis affecting , antepartum- Primary Encounter for care of first , second trimester examination or test, positive result [facility] Diagnosis Anemia during in second trimester- Primary related condition in second trimester 16 weeks gestation of [facility] Diagnosis examination or test, positive result- Primary [facility] Diagnosis Encounter for care of first , antepartum, third trimester- Primary Vomiting Unspecified vomiting of , unspecified as to episode of care documented in this encounter [facility] Chief Complaint and Reason for Visit Chief Complaint Abd pain Advance Directives Advance Directive Response Recorded Date/ Time Advance [...] Paulina Rodriguez MD Primary Care Provider Active [employer] Relationship Specialty Start Date End Date Paulina Rodriguez MD [address] [place] [id number] PCP - General Family Medicine 01/14/24 [employer] Relationship Specialty Start Date End Date Paulina Rodriguez MD [address] [place] [id number] PCP - General Family Medicine 01/14/24 [employer] Relationship Specialty Start Date End Date Paulina Rodriguez MD [address] [address] PCP - General Family Medicine 01/14/24 [employer] Relationship Specialty Start Date End Date Paulina Rodriguez MD [address] [phone] (Work) PCP - [facility] 01/14/24 [employer] Relationship Specialty Start Date End Date Paulina Rodriguez MD [address] [address] PCP - [facility] 01/14/24 [employer] Relationship Specialty Start Date End Date Paulina Rodriguez MD [address] [phone] (Work) PCP - [facility] 01/14/24 [employer] Relationship Specialty Start Date End Date Paulina Rodriguez MD [address] [address] PCP - General Family Medicine 01/14/24 Goals (unrecognized section and content) Goals may be documented in a n alternate section INFORMATION SOURCE (unrecogn ized section and content) DATE CREATED AUTHOR 11/02/2021 [facility] DATE CREATED AUTHOR AUTHOR'S MEGA ATION 03/30/2024 [facility] EPIC FOR RECORDS PERTAINING TO [...] BE BASED ON THE PRIMARY CLINICAL RECORDS. [facility] [facility]. provides no warranty or guarantee of the accuracy or completeness of information in this document.
--- OUTSIDE RECORDS SUMMARY | 2024-04-09 11:33 | XMS_ITS | CCD ---
Author Organization [facility] Care Team Providers Care Sewage Plant Attendant Name Role Phone MD Paulina Rodriguez Primary Care Provider DO Telly Moreno Emergency Provider Unavailable Primary Care Provider Naldo Rodriguez MD, Paulina Gage Primary Care Provider [phone] RENNY GIL Attending Unavailable FLORORENNY Attending Unavailable [...] take 1 tablet by mouth at mealti ut ferrous sulfate 325 (65 Fe) MG tablet [...] Auto (Urine sed) [#/Area] 0-1 [HPF] 0-4 [facility] Automated leukocytes count i n urine sediment (number/area)Ordered By: Telly Moreno on 10-19-2021 WBC Auto (Urine sed) [#/Area] 1-2 [HPF] 0-4 [facility] Bilirubin Test strip Ql (U)O rdered By: Telly Moreno on 10-19-2021 Bilirubin Ql (U) Negative Negative [facility] Color Auto (U)Ordered By: Armani Moreno on 10-19-2021 Color (U) Yellow Yellow [facility] Dipstick and Microscopicon 0 10-19-2021 Appearance (U) Clear Normal Clear [facility] Comment on above: Order Comment: Name Collection Type:: Clean-Voided Midstream Performed By: #### U HCG, ADDONUAPLUS #### [facility] [address] [place] [address] [place] Bacteria,Urine None Seen Normal None Seen [facility] Comment on above: Order Comment: Name Collection Type:: Clean-Voided Midstream Performed By: #### U HCG, ADDONUAPLUS #### [facility] [address] [place] [address] [place] Bilirubin,Urine Negative Normal Negative [facility] Comment on above: Order Comment: Name Collection Type:: Clean-Voided Midstream Performed By: #### U HCG, ADDONUAPLUS #### [facility] [address] [place] [id number] [place] Color (U) Yellow Normal Yellow [facility] Comment on above: Order Comment: Name Collection Type:: Clean-Voided Midstream Performed By: #### U HCG, ADDONUAPLUS #### [facility] [address] [place] [phone] [place] Glucose Ql (U) Normal Normal Normal [facility] Comment on above: Order Comment: Name Collection Type:: Clean-Voided Midstream Performed By: #### U HCG, ADDONUAPLUS #### [facility] [address] [place] [address] Hyaline Casts,Urine 0-8 Normal 0-[address] [facility] Comment on above: Order Comment: Name Collection Type:: Clean-Voided Midstream Performed By: #### U HCG, ADDONUAPLUS #### [facility] [address] [place] [address] Ketones Ql (U) Trace High Negative [facility] Comment on above: Order Comment: Name Collection Type:: Clean-Voided Midstream Performed By: #### U HCG, ADDONUAPLUS #### [facility] [address] [place] [address] Leukocyte esterase Test strip Ql (U) Negative Normal Negative [facility] Comment on above: Order Comment: Name Collection Type:: Clean-Voided Midstream Performed By: #### U HCG, ADDONUAPLUS #### [facility] [address] [place] [address] Nitrite,Urine Negative Normal Negative [facility] Comment on above: Order Comment: Name Collection Type:: Clean-Voided Midstream Performed By: #### U HCG, ADDONUAPLUS #### [facility] [address] [place] [address] Occult Blood,Urine Trace High Negative [facility] Comment on above: Order Comment: Name Collection Type:: Clean-Voided Midstream Performed By: #### U HCG, ADDONUAPLUS #### [facility] [address] [place] [address] pH (U) 6.5 [pH] Normal 5.0-9.0 [facility] Comment on above: Order Comment: Name Collection Type:: Clean-Voided Midstream Performed By: #### U HCG, ADDONUAPLUS #### [facility] [address] [place] [address] [place] Protein,Urine Trace High Negative [facility] Comment on above: Order Comment: Name Collection Type:: Clean-Voided Midstream Performed By: #### U HCG, ADDONUAPLUS #### [facility] [address] [place] [address] [place] RBC LM.HPF (Urine sed) [#/Area] 0 /[HPF] Normal 0-4 [facility] Comment on above: Order Comment: Name Collection Type:: Clean-Voided Midstream Performed By: #### U HCG, ADDONUAPLUS #### [facility] [address] Specificy [place],Urine 1.030 Normal 1.001-1.030 [facility] Comment on above: Order Comment: Name Collection Type:: Clean-Voided Midstream Performed By: #### U HCG, ADDONUAPLUS #### [facility] [address] Squamous Epithelial Cell,Urine 3-4 High 0-2 [facility] Comment on above: Order Comment: Name Collection Type:: Clean-Voided Midstream Performed By: #### U HCG, ADDONUAPLUS #### [facility] [address] [place] [address] Urobilinogen,Urine >=2 High Normal [facility] Comment on above: Order Comment: Name Collection Type:: Clean-Voided Midstream Performed By: #### U HCG, ADDONUAPLUS #### [facility] [address] [place] [address] WBC,Urine 1-2 Normal 0-4 [facility] Comment on above: Order Comment: Name Collection Type:: Clean-Voided Midstream Performed By: #### U HCG, ADDONUAPLUS #### [facility] [address] [place] [address] HCG ( test) IA.rapi d Ql (U)Ordered By: PROVIDER TEMP on 10-19-2021 HCG ( test) Ql (U) Negative [facility] HCG,Urineon 10-19-2021 Beta HCG ( test) Ql (U) Negative Normal [facility] Comment on above: Order Comment: Name Collection Type:: Clean-Voided Midstream Result Comment: PERF ORMED BY: [place] [address] PATHOLOGIST FELLER MACHINE OPERATOR MELVA KUHN M.D. Performed By: #### U HCG, ADDONUAPLUS #### [facility] [address] [place] [phone] [facility] Ketones Auto test strip (U) [Mass/Vol]Ordered By: Telly Moreno on 10-19-2021 Ketones (U) [Mass/Vol] Trace Negative Fi [facility] - UrinalysisOrder ed By: Telly Moreno on 10-19-2021 Hyaline casts LM Ql (Urine sed) 0-8 [LPF] 0-8 [facility] Nitrite Test strip Ql (U)Ord ered By: Telly Moreno on 10-19-2021 Nitrite Ql (U) Negative Negative [facility] Protein Auto test strip (U) [Mass/Vol]Ordered By: Telly Moreno on 10-19-2021 Protein (U) [Mass/Vol] Trace mg/dL Negative F [facility] Specific gravity Auto test s trip (U) [Rel density]Ordered By: Telly Moreno on 10-19-2021 Specific gravity (U) [Rel density] 1.030 1.001-1.030 [facility] Squamous epithelial cells de tection in urine sediment by light microscopyOrdered By: Telly Moreno on 10-19-2021 Epithelial cells.squamous LM Ql (Urine sed) 3-4 [HPF] 0-2 [facility] Urine bacteria detection by automated methodOrdered By: Telly Moreno on 10-19-2021 Bacteria Auto Ql (U) None seen None Seen [facility] Urine clarity by refractomet ry automatedOrdered By: Telly Moreno on 10-19-2021 Clarity Refractometry automated (U) Clear Clear [facility] Urine glucose measurement by automated test strip (mass/volume)Ordered By: Telly Moreno on 10-19-2021 Glucose Auto test strip (U) [Mass/Vol] Normal mg/dL Normal [facility] Urine hemoglobin detection b y automated test stripOrdered By: Telly Moreno on 10-19-2021 Hemoglobin Auto test strip Ql (U) Trace Negative [facility] Urine leukocyte esterase det ection by automated test stripOrdered By: Telly Moreno on 10-19-2021 Leukocyte esterase Auto test strip Ql (U) Negative Negative [facility] Urobilinogen Auto test strip (U) [Mass/Vol]Ordered By: Telly Moreno on 10-19-2021 Urobilinogen (U) [Mass/Vol] mg/dL Normal [facility] pH Auto test strip (U)Ordere d By: Telly Moreno on 10-19-2021 pH (U) 6.5 [pH] 5.0-9.0 [facility] Vital Signs Date Time Vital Sign Value Performing Clinician Facility 02-27-2024 08:33-0500 Body mass index (BMI) [Ratio] 19.4 kg/m2 Renny Floro CNM Work Phone: [facility] 02-27-2024 08:33-0500 Body weight 51.26 kg Renny Floro CNM Work Phone: [facility] 02-27-2024 08:33-0500 Diastolic blood pressure 80 mm[Hg] Renny Floro CNM Work Phone: [facility] 02-27-2024 08:33-0500 Systolic blood pressure 118 mm[Hg] Renny Floro CNM Work Phone: [facility] 01-28-2024 09:26-0500 Body mass index (BMI) [Ratio] 17.68 kg/m2 Renny Floro CNM Work Phone: [facility] 01-28-2024 09:26-0500 Body weight 46.72 kg Renny Floro CNM Work Phone: [facility] 01-14-2024 08:56-0500 Body mass index (BMI) [Ratio] 15.45 kg/m2 Renny Floro CNM Work Phone: [facility] 01-14-2024 08:56-0500 Body weight 40.82 kg Renny Floro CNM Work Phone: [facility] 01-14-2024 08:56-0500 Diastolic blood pressure 70 mm[Hg] Renny Floro CNM Work Phone: [facility] 01-14-2024 08:56-0500 Systolic blood pressure 110 mm[Hg] Renny Floro CNM Work Phone: [facility] 01-07-2024 10:21-0500 Body mass index (BMI) [Ratio] 14.93 kg/m2 Renny WEAVERM Work Phone: [facility] 01-07-2024 10:21-0500 Body weight 39.46 kg Renny WEAVERM Work Phone: [facility] 10-19-2021 20:03-0400 Body temperature 99 [degF] MD Paulina Rodriguez Work Phone: [facility] 10-19-2021 20:03-0400 Diastolic blood pressure 56 mm[Hg] MD Paulina Rodriguez Work Phone: [facility] 10-19-2021 20:03-0400 Heart rate 70 /min MD Paulina Rodriguez Work Phone: [facility] 10-19-2021 20:03-0400 Respiratory rate 18 /min MD Paulina Rodriguez Work Phone: [facility] 10-19-2021 20:03-0400 SaO2% (BldA) [Mass fraction] 99 % MD Paulina Rodriguez Work Phone: [facility] 10-19-2021 20:03-0400 Systolic blood pressure 118 mm[Hg] MD Paulina Rodriguez Work Phone: [facility] 10-19-2021 17:13-0400 Body height 157.48 cm MD Paulina Rodriguez Work Phone: [facility] 10-19-2021 17:13-0400 Body weight 52.45 kg MD Paulina Rodriguez Work Phone: [facility] Encounters Encounter Date Encounter Type Care Provider Facility Start: 04-06-2024 End: 04-06-2024 Telephone encounter Renny WEAVERM Work Phone: [facility] Start: 03-26-2024 End: 03-26-2024 ambulatory [...] patient visit MD Paulina Rodriguez Work Phone: [facility] Plan of Treatment Date Care Activity Detail Author Start: 04-16-2024 End: 04-16-2024 Patient encounter procedure 04/16/2024 9:00 AM EST Routine [facility] [address] [place] [phone] Renny Gil CNM [address] [place] [address] [facility] Start: 03-26-2024 End: 03-26-2024 Patient encounter procedure 03/26/2024 3:45 PM EST Routine [facility] [address] [place] [phone] Renny Gil CNM [address] [place] [address] Arrived [facility] Comment on above: Arrived Start: 03-26-2024 End: 03-26-2024 Patient encounter procedure 03/26/2024 8:30 AM EST Routine [facility] [address] [place] [id number] Renny Gil, CNM [address] [place] [address] [facility] Start: 02-27-2024 End: 02-27-2024 Patient encounter procedure 02/27/2024 8:30 AM EST Routine [facility] [address] [place] [id number] Renny Gil, CNM [address] [place] [address] [facility] Start: 01-28-2024 End: 01-27-2025 US for US OB 14+ weeks anatomy scan Imaging Routine related condition in second trimester Expected: 01/28/2024, Expires: 01/27/2025 [facility] Work Phone: Comment on above: Expected: 01/28/2024 , Expires: 01/27/2025 Start: 01-28-2024 End: 01-28-2024 Patient encounter procedure 01/28/2024 8:30 AM EST Routine [facility] [address] [place] [address] Renny Gil, CNM [address] [place] [address] [facility] Start: 01-15-2024 End: 01-15-2024 ambulatory 01/15/2024 1:00 PM EST Initial [facility] [address] [place] [phone] Renny Gil, CNM [address] [place] [address] [facility] Start: 01-14-2024 End: 2025 ABO/Rh ABO/Rh Lab Routine examination or test, positive result Expected: 01/14/2024 (Approximate), Expires: 2025 [facility] Comment on above: Expected: 01/14/2024 (Approximate), Expires: 2025 Start: 01-14-2024 End: 2025 Antibody screen Antibody screen Lab Routine examination or test, positive result Expected: 01/14/2024 (Approximate), Expires: 2025 [facility] Comment on above: Expected: 01/14/2024 (Approximate), Expires: 2025 Start: 01-14-2024 End: 2025 Bacteria identified in Urine by Culture Urine culture Microbiology Routine examination or test, positive result Expected: 01/14/2024 (Approximate), Expires: 2025 [facility] Comment on above: Expected: 01/14/2024 (Approximate), Expires: 2025 Start: 01-14-2024 End: 2025 CBC panel - Blood by Automated count CBC Lab Routine examination or test, positive result Expected: 01/14/2024 (Approximate), Expires: 2025 [facility] Comment on above: Expected: 01/14/2024 (Approximate), Expires: 2025 Start: 01-14-2024 End: 2025 DRUG TOX MONITORIGN 6 W/ CONF,URINE DRUG TOX MONITORIGN 6 W/ CONF,URINE Lab Routine examination or test, positive result Expected: 01/14/2024 (Approximate), Expires: 2025 [facility] Comment on above: Expected: 01/14/2024 (Approximate), Expires: 2025 Start: 01-14-2024 End: 2025 Hemoglobin A1c/Hemoglobin.total in Blood Hemoglobin A1c Lab Routine examination or test, positive result Expected: 01/14/2024 (Approximate), Expires: 2025 [facility] Comment on above: Expected: 01/14/2024 (Approximate), Expires: 2025 Start: 01-14-2024 End: 2025 Hepatitis B virus surface Ag [Presence] in Serum or Plasma by Immunoassay Hepatitis B surface antigen Lab Routine examination or test, positive result Expected: 01/14/2024 (Approximate), Expires: 2025 [facility] Work Phone: Comment on above: Expected: 01/14/2024 (Approximate), Expires: 2025 Start: 01-14-2024 End: 2025 Hepatitis C virus Ab [Presence] in Serum or Plasma by Immunoassay Hepatitis C antibody Lab Routine examination or test, positive result Expected: 01/14/2024 (Approximate), Expires: 2025 [facility] Comment on above: Expected: 01/14/2024 (Approximate), Expires: 2025 Start: 01-14-2024 End: 2025 HIV-1/HIV-2 antigen/antibody combination immunoassay HIV-1 and HIV-2 antibodies Lab Routine examination or test, positive result Expected: 01/14/2024 (Approximate), Expires: 2025 [facility] Comment on above: Expected: 01/14/2024 (Approximate), Expires: 2025 Start: 01-14-2024 End: 2025 Neisseria gonorrhoeae DNA [Presence] in Cervical mucus by DARYL with probe detection C. trachomatis / N. gonorrhoeae, DNA probe Pathology and Cytology Routine examination or test, positive result Expected: 01/14/2024 (Approximate), Expires: 2025 [facility] Comment on above: Expected: 01/14/2024 (Approximate), Expires: 2025 Start: 01-14-2024 End: 2025 Reagin Ab [Presence] in Serum by RPR RPR Lab Routine examination or test, positive result Expected: 01/14/2024 (Approximate), Expires: 2025 [facility] Comment on above: Expected: 01/14/2024 (Approximate), Expires: 2025 Start: 01-14-2024 End: 2025 Rubella antibody, IgG Rubella antibody, IgG Lab Routine examination or test, positive result Expected: 01/14/2024 (Approximate), Expires: 2025 [facility] Comment on above: Expected: 01/14/2024 (Approximate), Expires: 2025 Start: 01-14-2024 End: 2025 TSH W/REFLEX TO FT4 TSH W/REFLEX TO FT4 Lab Routine examination or test, positive result Expected: 01/14/2024 (Approximate), Expires: 2025 [facility] Comment on above: Expected: 01/14/2024 (Approximate), Expires: 2025 Start: 01-14-2024 End: 2025 URINALYSIS MICROSCOPIC URINALYSIS MICROSCOPIC Lab Routine examination or test, positive result Expected: 01/14/2024 (Approximate), Expires: 2025 [facility] Comment on above: Expected: 01/14/2024 (Approximate), Expires: 2025 Patient referral [facility] Work Phone: Payers Date Payer Category Payer Medicaid [place] [id number] 2023 Medicaid [id number] 2022 Private Health Insurance [employer] [id number] 2022 Unknown [id number] 2002 Unknown [id number] 2002 Unknown [id number] [id number] 2002 Unknown [id number] [id number] 2002 Unknown [id number] [id number] 2002 Unknown [id number] [id number] Social History Date Type Detail Facility Start: 10-19-2021 End: 01-07-2024 Tobacco smoking status WYIS Never smoked tobacco (finding) [facility] Start: 2000 Sex Assigned At Female F [facility] Tobacco smoking stat us WYIS Tobacco smoking consumption unknown [facility] Start: [...] Type Note Facility 04-06-2024 Telephone encounter Note [facility] called asking for any office notes , labs,etc. I sent her labs but didn't see any office notes or other info I could send , [facility] 04-06-2024 Miscellaneous Notes [facility] called asking for any office notes , labs,etc. I sent her labs but didn't see any office notes or other info I could send , documented in this encounter [facility] 04-06-2024 Telephone encounter Note Patient calling this morning to schedule appt with Clare today. She has vomiting and pain. She is 26 weeks . She went to the [facility] ER last night and was diagnosed with flu and was told she would be better in 24 hours. She was pulling back into the same ER as we were talking- she is not feeling better. Please advise. Thank you. [facility] 04-06-2024 Miscellaneous Notes Patient calling this morning to schedule appt with Clare today. She has vomiting and pain. She is 26 weeks . She went to the [facility] ER last night and was diagnosed with flu and was told she would be better in 24 hours. She was pulling back into the same ER as we were talking- she is not feeling better. Please advise. Thank you. documented in this encounter [facility] 02-27-2024 History of Presen t illness [...] a routine visit. documented in this encounter [facility] 01-28-2024 History of Presen t illness [...] a routine visit. documented in this encounter [facility] 01-14-2024 History of Presen t illness [...] complicated by: pt [facility]. She states she [...] a routine visit. documented in this encounter [facility] 01-07-2024 History of Presen t illness [...] also given office phone number and [facility] number to call in case of an emergency or after hours needs. PVU and all questions answered. We did discuss place of delivery. Patient should plan to go to [facility] for all services unless an emergency and they need to go to the closest ER. 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 documented in this encounter [facility] 12-31-2023 Telephone encounter Note Pt called [...] Evaluation note No assessment inform ation available [facility] Work Phone: Evaluation note Diagnosis Hyperemesis [...] Paulina Rodriguez MD Primary Care Provider Active Sewage Plant Attendant Relationship Specialty Start Date End Date Paulina Rodriguez MD [address] [place] [phone] PCP - General Family Medicine 01/14/24 Sewage Plant Attendant Relationship Specialty Start Date End Date Paulina Rodriguez MD [address] [place] [phone] PCP - General Family Medicine 01/14/24 Sewage Plant Attendant Relationship Specialty Start Date End Date Paulina Rodriguez MD [address] [place] [address] PCP - General Family Medicine 01/14/24 Sewage Plant Attendant Relationship Specialty Start Date End Date Paulina Rodriguez MD [address] [place] [phone] (Work) PCP - [facility] 01/14/24 Sewage Plant Attendant Relationship Specialty Start Date End Date Paulina Rodriguez MD [address] [place] [address] PCP - [facility] 01/14/24 Sewage Plant Attendant Relationship Specialty Start Date End Date Paulina Rodriguez MD [address] [place] [phone] (Work) PCP - [facility] 01/14/24 Sewage Plant Attendant Relationship Specialty Start Date End Date Paulina Rodriguez MD [address] [place] [address] PCP - General Family Medicine 01/14/24 Goals (unrecognized section and content) Goals may be documented in a n alternate section INFORMATION SOURCE (unrecogn ized section and content) DATE CREATED AUTHOR 11/02/2021 [facility] DATE CREATED AUTHOR AUTHOR'S MEGA ATION 03/30/2024 [facility] EPIC FOR RECORDS PERTAINING [...] BE BASED ON THE PRIMARY CLINICAL RECORDS. [facility]. provides no warranty or guarantee of the accuracy or completeness of information in this document.
--- NOTE | 2024-04-09 12:40 | US_ITS ---
[address] [address] Patient Name: ELIZABETH BARKER MRN: [facility]:[id number] date: 2000 Sex: F Assigned Patient Location: [facility] Current Patient Location: [facility] Accession/Order Number: [id number] Exam Date: 04/09/2024 12:41 Report Date: 04/09/2024 13:36 At the request of: RENNY MARTINES Procedure: US OB BPP wo non-stress EXAMINATION: US OB BPP wo non-stress HISTORY:hyperemesis gravidarum/norovirus? COMPARISON: Ultrasound OB anatomy 01/31/2024 TECHNIQUE: Ultrasound biophysical profile was performed in the radiology department. BREATHING MOVEMENTS: 2 GROSS BODY MOVEMENTS: 2 TONE: 2 QUALITATIVE AMNIOTIC FLUID VOLUME: 2 PRESENTATION: CEPHALIC HEART RATE: 156.98 bpm AMNIOTIC FLUID VOLUME: 15.34 cm GESTATIONAL AGE: 26 weeks 5 days US/US OB BPP wo non-stress IMPRESSION: 1. Total biophysical profile score: 8 Electronically authenticated by: MARGARITO DOMINGUEZ Date: 04/09/2024 13:36
[2024-04-09 13:05] LABS: Basophils Percent Auto 0.2 % (0.2-2.0); Eosinophils Percent Auto 0.2 % (0.9-7.0); Hematocrit 36.7 % (36.0-48.0); Hemoglobin 12.3 g/dL (12.0-16.0); Immature Granulocytes Abs Auto 0.34 10^3/uL (0.00-0.03); Immature Granulocytes Pct Auto 2.4 % (0.0-0.5); Lymphocytes Absolute Auto 2.6 10^3/uL (1.2-3.8); Lymphocytes Percent Auto 18.7 % (20.5-60.0); Mean Corpuscular HGB Conc 33.5 g/dL (29.9-35.2); Mean Corpuscular Hemoglobin 30.1 pg (26.7-34.0); Mean Platelet Volume 11.5 fL (9.5-13.5); Monocytes Absolute Auto 0.9 10^3/uL (0.3-0.8); Monocytes Percent Auto 6.5 % (1.7-12.0); Neutrophils Absolute Auto 10.2 10^3/uL (1.4-6.5); Platelet Count 227 10^3/uL (150-450); Red Blood Count 4.08 10^6/uL (4.20-5.40); White Blood Count 14.1 10^3/uL (4.0-11.0)
[2024-04-09 13:06] LABS: Bilirubin Urine SMALL (NEGATIVE); Blood Urine NEGATIVE (NEGATIVE); Clarity Urine CLEAR (CLEAR); Color Urine LT. YELLOW (YELLOW); Glucose Urine UA NEGATIVE (NEGATIVE); Ketones Urine >=80 mg/dL (NEGATIVE); Leukocyte Esterase Urine MODERATE (NEGATIVE); Nitrite Urine NEGATIVE (NEGATIVE); Protein Urine 30 mg/dL (NEG/TRACE); Specific Gravity Urine >=1.030 (1.005-1.025); Urine Microscopic Indicated YES
[2024-04-09 13:17] LABS: Bacteria Urine SMALL #/HPF (NONE SEEN); Cast Seen? NONE SEEN #/LPF (NONE SEEN); Crystals Seen? None Seen #/HPF (None Seen); Mucus Urine TRACE (NONE SEEN); RBC Urine NONE SEEN #/HPF (0-2); Squamous Epithelial Cell Urine FEW #/LPF (NONE/RARE); Urine Culture Indicated YES-LC
[2024-04-09 13:24] LABS: Alanine Aminotransferase 31 U/L (14-59); Albumin Globulin Ratio 0.9; Albumin Level 3.5 g/dL (3.4-5.0); Alkaline Phosphatase 64 U/L (46-116); Anion Gap 19.2; Aspartate Amino Transferase 22 U/L (15-37); BUN Creatinine Ratio 5.6; Bilirubin Total 0.7 mg/dL (0.2-1.0); Calcium 8.8 mg/dL (8.5-10.1); Carbon Dioxide 20.2 mmol/L (21.0-32.0); Chloride 98 mmol/L (98-107); Estimated GFR (African America >60 (>=60 mL/min/1.73m^2); Estimated GFR (Non-African Ame >60 (>=60 mL/min/1.73m^2); Globulin 3.8 g/dL; Glucose 64 mg/dL (74-106); Sodium 135 mmol/L (136-145); Total Protein 7.3 g/dL (6.4-8.2)
[2024-04-09] MEDS: MULTIVIT INFUSN,ADULT 4,VIT K 10 ML in 0.9 % SODIUM CHLORIDE 1,000 ML 125 ML IV (13:29)
[2024-04-09] MEDS: LACTATED RINGER'S SOLUTION 1,000 ML 1000 ML IV (13:31)
[2024-04-09] MEDS: CALCIUM CARBONATE 500 MG (200MG ELEMENTAL) TAB CHEW PO (13:35)
[2024-04-09 13:37] LABS: Potassium 2.4 mmol/L (3.5-5.1)
[2024-04-09] MEDS: ONDANSETRON PF 4 MG/2 ML VIAL 8 MG IV (13:52)
--- NOTE | 2024-04-09 13:58 | XR_ITS ---
The [address] [address] Patient Name: ELIZABETH BARKER MRN: [id number] date: 2000 Sex: F Assigned Patient Location: [facility] Current Patient Location: [facility] Accession/Order Number: [id number] Exam Date: 04/09/2024 14:19 Report Date: 04/09/2024 15:05 At the request of: RENNY MARTINES Procedure: XR chest 2V EXAMINATION: XR chest 2V HISTORY: chest pain vs/indigestion COMPARISON: No relevant comparison available. FINDINGS: LUNGS: No significant pulmonary parenchymal abnormalities. VASCULATURE: No increased pulmonary vasculature. PLEURA: No pneumothorax, effusion, or pleural thickening. CARDIAC: No cardiomegaly or cardiac silhouette abnormality. MEDIASTINUM: No visible mass or adenopathy. BONES: No fracture or visible bone lesion. OTHER: Negative. XR/XR chest 2V IMPRESSION: 1. Normal examination. Electronically authenticated by: MARGARITO DOMINGUEZ Date: 04/09/2024 15:05
[2024-04-09 14:22] LABS: Influenza Virus A Antigen Negative; Influenza Virus B Antigen Negative; Internal Control Within Normal Limits
[2024-04-09] MEDS: POTASSIUM CHLORIDE 40 MEQ in 0.9 % SODIUM CHLORIDE 250 ML 63 MEQ IV (15:49)
[2024-04-09] MEDS: PROMETHAZINE HCL 25 MG/ML VIAL IM ×2 (16:17→23:39)
--- NOTE | 2024-04-09 17:54 | P.PN_ITS ---
Progress Note: Subjective Subjective Interval history: Patient presented with significant weight loss, this is secondary to hyperemesis, unable to keep anything down, found to have electrolytes with a low potassium, consulted for same Exam Constitutional Vital Signs, click to edit/add: Last Vital Signs Temp 97.9 F 04/09/24 16:30 Pulse 65 04/09/24 16:50 Resp 17 04/09/24 16:50 BP 102/68 04/09/24 16:30 Pulse Ox 99 04/09/24 16:50 Documenting provider has reviewed patient's vital signs: yes Common normals: apparent distress (Looks very uncomfortable) Exam limitations: no altered mental status Respiratory Common normals: normal respiratory effort and no retractions Cardio Common normals: regular rate and regular rhythm GI Common normals: soft to palpation; tender (Epigastric tenderness, negative Morrow's) Progress Note: Objective Labs Labs: Short CBC 04/09/24 Range/Units 12:20 WBC 14.1 H (4.0-11.0) 10^3/uL Hgb 12.3 (12.0-16.0) g/dL Hct 36.7 (36.0-48.0) % Plt Count 227 (150-450) 10^3/uL BMP 04/09/24 12:20 Sodium 135 L Potassium 2.4 L* Chloride 98 Carbon Dioxide 20.2 L BUN 3.0 L Creatinine 0.54 L Glucose 64 L Calcium 8.8 Liver Function 04/09/24 Range/Units 12:20 Total Bilirubin 0.7 (0.2-1.0) mg/dL AST 22 (15-37) U/L ALT 31 (14-59) U/L Alkaline Phosphatase 64 (46-116) U/L Albumin 3.5 (3.4-5.0) g/dL Urine 04/09/24 Range/Units 12:21 Urine Color Lt. yellow (YELLOW) Urine Clarity Clear (CLEAR) Urine pH 6.0 (5.0-9.0) Ur Specific [place] >=1.030 A (1.005-1.025) Urine Protein 30 A (NEG/TRACE) mg/dL Urine Glucose (UA) Negative (NEGATIVE) mg/dL Progress Note: A&P Assessment and Plan (1) Abdominal pain: (2) Hypokalemia: Plan Admission findings: Hyperemesis with hypokalemia Hypokalemia-will supplement with IV boluses, serial labs Epigastric pain-likely gastritis, no emesis with blood, will start patient on IV Protonix, also give several doses of IV Reglan
[2024-04-09] MEDS: PANTOPRAZOLE SODIUM 40 MG VIAL IV (18:38)
[2024-04-09 20:20] LABS: Amylase 51 U/L (25-115); Magnesium 1.6 mg/dL (1.8-2.4)
[2024-04-09 20:21] LABS: Internal Control Within Normal Limits; SARS-CoV-2 Ag NEGATIVE (NEGATIVE)
[2024-04-09 20:32] LABS: Anion Gap 20.8; BUN Creatinine Ratio 4.7; Calcium 8.1 mg/dL (8.5-10.1); Carbon Dioxide 15.8 mmol/L (21.0-32.0); Chloride 102 mmol/L (98-107); Estimated GFR (African America >60 (>=60 mL/min/1.73m^2); Estimated GFR (Non-African Ame >60 (>=60 mL/min/1.73m^2); Glucose 61 mg/dL (74-106); Sodium 136 mmol/L (136-145)
[2024-04-09 20:34] LABS: Potassium 2.6 mmol/L (3.5-5.1)
[2024-04-09] MEDS: POTASSIUM CHLORIDE IN WATER 10 MEQ/100 ML PREMIX 100 MEQ IV ×2 (22:45→23:52)
[2024-04-09] MEDS: METOCLOPRAMIDE HCL 10 MG/2 ML VIAL 5 MG IVP (23:38)
[2024-04-10] MEDS: POTASSIUM CHLORIDE IN WATER 10 MEQ/100 ML PREMIX 100 MEQ IV ×2 (00:51→01:58)
[2024-04-10] MEDS: MULTIVIT INFUSN,ADULT 4,VIT K 10 ML in 0.9 % SODIUM CHLORIDE 1,000 ML 125 ML IV (01:58)
--- NOTE | 2024-04-10 05:44 | P.PN_ITS ---
Progress Note: Subjective Subjective Interval history: Patient feels much better today, so far to start the day no emesis Exam Constitutional Vital Signs, click to edit/add: Last Vital Signs Temp 97.9 F 04/09/24 16:30 Pulse 63 04/09/24 23:03 Resp 17 04/09/24 16:50 BP 136/75 04/09/24 23:03 Pulse Ox 100 04/09/24 23:08 Documenting provider has reviewed patient's vital signs: yes Common normals: apparent distress (Looks very uncomfortable) Exam limitations: no altered mental status Respiratory Common normals: normal respiratory effort and no retractions Cardio Common normals: regular rate and regular rhythm GI Common normals: soft to palpation and non-tender (Epigastric tenderness has resolved) Progress Note: Objective Labs Labs: Short CBC 04/09/24 Range/Units 12:20 WBC 14.1 H (4.0-11.0) 10^3/uL Hgb 12.3 (12.0-16.0) g/dL Hct 36.7 (36.0-48.0) % Plt Count 227 (150-450) 10^3/uL BMP 04/09/24 04/09/24 12:20 19:59 Sodium 135 L 136 Potassium 2.4 L* 2.6 L* Chloride 98 102 Carbon Dioxide 20.2 L 15.8 L BUN 3.0 L 2.0 L Creatinine 0.54 L 0.43 L Glucose 64 L 61 L Calcium 8.8 8.1 L Liver Function 04/09/24 Range/Units 12:20 Total Bilirubin 0.7 (0.2-1.0) mg/dL AST 22 (15-37) U/L ALT 31 (14-59) U/L Alkaline Phosphatase 64 (46-116) U/L Albumin 3.5 (3.4-5.0) g/dL Urine 04/09/24 Range/Units 12:21 Urine Color Lt. yellow (YELLOW) Urine Clarity Clear (CLEAR) Urine pH 6.0 (5.0-9.0) Ur Specific [place] >=1.030 A (1.005-1.025) Urine Protein 30 A (NEG/TRACE) mg/dL Urine Glucose (UA) Negative (NEGATIVE) mg/dL Progress Note: A&P Assessment and Plan (1) Abdominal pain: (2) Hypokalemia: Plan Admission findings: Hyperemesis with hypokalemia Hypokalemia-will supplement with IV boluses, serial labs Imcssdmeuvvfrk-oecmpqvqhz-olykxy level this morning Epigastric pain-likely gastritis, no emesis with blood, will start patient on IV Protonix, also give several doses of IV Reglan-so far improved, likely gastritis, would recommend continuing with the Protonix as an outpatient for period of 10 to 14 days Is able to eat and potassium returns close to normal later today, likely discharge to home, plan per obstetrics team
[2024-04-10 06:07] VITALS: BP 145/69; PULSE 59
[2024-04-10 06:11] VITALS: TEMP 36.8
[2024-04-10 06:13] LABS: Anion Gap 19.8; BUN Creatinine Ratio 4.4; Calcium 7.9 mg/dL (8.5-10.1); Chloride 104 mmol/L (98-107); Estimated GFR (African America >60 (>=60 mL/min/1.73m^2); Estimated GFR (Non-African Ame >60 (>=60 mL/min/1.73m^2); Glucose 57 mg/dL (74-106); Sodium 137 mmol/L (136-145)
[2024-04-10 06:14] LABS: Potassium 2.8 mmol/L (3.5-5.1)
[2024-04-10] MEDS: POTASSIUM CHLORIDE 40 MEQ in 0.9 % SODIUM CHLORIDE 250 ML 67.5 MEQ IV (07:30)
[2024-04-10 08:19] LABS: Magnesium 1.5 mg/dL (1.8-2.4)
[2024-04-10] MEDS: MAGNESIUM SULFATE IN WATER 2 GM/50 ML PREMIX IV (08:53)
[2024-04-10] MEDS: LACTATED RINGER'S SOLUTION 1,000 ML 125 ML IV (10:30)
--- NOTE | 2024-04-10 13:11 | PM.OBPN ---
OB - PN: Subj Subjective Interval history: Patient feels much better today, so far to start the day no emesis Patient comments: no complaints Exam Constitutional Vital Signs, click to edit/add: Last Vital Signs Temp 98.2 F 04/10/24 06:11 Pulse 59 L 04/10/24 06:07 Resp 17 04/09/24 16:50 BP 145/69 H 04/10/24 06:07 Pulse Ox 100 04/09/24 23:08 Documenting provider has reviewed patient's vital signs: yes Common normals: no apparent distress and oriented x3 General appearance: cooperative and comfortable Orientation/consciousness: Yes awake, Yes oriented to person, Yes oriented to place and Yes oriented to time Lymph Lymphatic: no lymphadenopathy noted Chest Common normals: inspection of chest normal Respiratory Common normals: normal respiratory effort Effort & inspection: able to speak in complete sentences Auscultation: clear to auscultation bilaterally Cardio Common normals: regular rate and regular rhythm Rate: regular rate Rhythm: regular rhythm GI Common normals: Normal to inspection, nondistended, normoactive bowel sounds present Inspection: normal to inspection Palpation: soft Common normals: no CVA tenderness Back & Pelvis Common normals: no CVA tenderness Extremity Common normals: normal to inspection Neuro Common normals: oriented x3 Sensorium/orientation: awake, alert, oriented to person, oriented to place and oriented to time Psych Psychiatry clinicians, please identify where your Mental Status Exam is documented: Mental Status Exam documented in the separate MSE Common normals: mental status grossly normal, thought process normal, cooperative, affect normal, speech normal, activity/motor behavior normal, denies hallucinations, denies homicidal ideation and denies suicidal ideation Thought process: normal thought process Results Labs Labs: [facility] 04/09/24 04/09/24 04/10/24 12:20 19:59 05:57 Sodium 135 L 136 137 Potassium 2.4 L* 2.6 L* 2.8 L* Chloride 98 102 104 Carbon Dioxide 20.2 L 15.8 L 16.0 L BUN 3.0 L 2.0 L 2.0 L Creatinine 0.54 L 0.43 L 0.45 L Glucose 64 L 61 L 57 L Calcium 8.8 8.1 L 7.9 L Liver Function 04/09/24 Range/Units 12:20 Total Bilirubin 0.7 (0.2-1.0) mg/dL AST 22 (15-37) U/L ALT 31 (14-59) U/L Alkaline Phosphatase 64 (46-116) U/L Albumin 3.5 (3.4-5.0) g/dL OB - PN: A/P Assessment and Plan (1) Abdominal pain: (2) Hypokalemia: Plan patient was in the ER at [facility] 3 times over the last 1-2 weeks. She was not hospitalized and was told to see her OB provider. I saw her yesterday in the office. she was vomiting, pale, dehydrated, and weak. Lips are dry, skin turgor delayed. Patient states she cannot eat or hold any food down. She has not eaten in 3 days. I sent her to [facility] and she is here as OBS for HG, dehydration. Orders given to KEIRA Gustafson and also to place referral for consult to medical hospitalist. Will co manage hospital care with Dr Moore, Dr Wilkins and myself. Time Spent with Patient Time: Total time spent is greater than 50% in coordination of care (as documented) at patient's floor/unit and/or counseling patient: Total time spent with greater than 50% in coordination of care (as documented) at patient's floor/unit and/or counseling patient: less than 15 minutes
[2024-04-10 13:44] LABS: Anion Gap 18.7; BUN Creatinine Ratio 2.2; Blood Urea Nitrogen <1.0 mg/dL (7.0-18.0); Calcium 7.8 mg/dL (8.5-10.1); Carbon Dioxide 15.6 mmol/L (21.0-32.0); Chloride 105 mmol/L (98-107); Estimated GFR (African America >60 (>=60 mL/min/1.73m^2); Estimated GFR (Non-African Ame >60 (>=60 mL/min/1.73m^2); Glucose 57 mg/dL (74-106); Potassium 3.3 mmol/L (3.5-5.1); Sodium 136 mmol/L (136-145)
[2024-04-10 13:46] VITALS: BP 138/71; PULSE 66
[2024-04-10 14:15] VITALS: BP 138/71; PULSE 66; TEMP 37.2
== END 2024-04-10 14:50 | disposition home or self-care (01) ==
PROVIDERS: Family Medicine; Admitting Provider Midwife; PCP Family Medicine; Visit Provider Midwife
DX: O21.2 Late vomiting of pregnancy (principal); Z3A.26 26 weeks gestation of pregnancy
CPT/HCPCS: 36415; 71046; 76819; 80048; 80053; 81001; 82150; 83690; 83735; 85025; 87086; 87804; 87811; 96361; 96365; 96366; 96367; 96368; 96372; 96375; 96376; G0378; G0379; J2405; J2550; J2765; J3475; J3480

== ENCOUNTER 2024-05-06 15:27 | Observation (INO) | payer OTHER, SELFPAY ==
--- OUTSIDE RECORDS SUMMARY | 2024-05-06 15:46 | XMS_ITS | CCD ---
Author Organization [facility] Inform ion Partnership [facility] Care Team Providers Care Market Research Specialist Name Role Phone MD Brooke Rodriguez Primary Care Provider [phone] DO Telly Moreno Emergency Provider Unavailable Primary Care Provider Naldo Rodriguez MD, Brooke Gage Primary Care Provider RENNY GIL Attending Unavailable FLOROCLARERENNY L Attending Unavailable FLORO RENNY L Attending Unavailable FLORO RENNY L Referring Unavailable FLORO RENNY L Attending Unavailable FLORO RENNY L Attending Unavailable FLORO RENNY L Attending Unavailable FLORO RENNY L Attending Unavailable Medications Current Medications Medication Drug Class(es) Dates Sig (Normalized) Sig (Original) docusate sodium 100 mg oral capsule (19 sources) Start: 12-13-2023 docusate sodium (Colace) 100 MG capsule 100 mg 12/13/2023 Active ferrous sulfate 325 mg delayed release oral tablet (20 sources) Start: 01-28-2024 End: 01-27-2025 take 1 [...] meals. Active metoclopramide 10 mg oral tablet (19 sources) Dopamine-2 Receptor Antagonist Start: 12-20-2023 metoclopramide (Reglan) 10 MG tablet Take by mouth every 6 (six) hours 12/20/2023 Active ondansetron 8 mg oral tablet (20 sources) Serotonin-3 Receptor Antagonist Start: 04-06-2024 End: 05-06-2024 take 1 tablet by mouth every eight hours for nausea ondansetron (Zofran) 8 MG tablet Indications: Nausea and vomiting, unspecified vomiting type Take 1 tablet (8 mg) by mouth every 8 (eight) hours if needed for nausea 20 tablet 04/06/2024 05/06/2024 Active Start: 12-20-2023 take 2 tablets by mo uth every eight hours as needed ondansetron ODT (Zofran-ODT) 4 MG disintegrating tablet Take 8 mg by mouth every 8 (eight) hours if needed 12/20/2023 Active MV & Min w/FA-DHA ( Gummies) 0.18-25 MG chewable tablet (4 sources) Start: 01-14-2024 End: 02-13-2024 MV & Min w/FA-DHA ( Gummies) 0.18-25 MG chewable tablet Indications: examination or test, positive result Chew 1 tablet Daily 30 tablet 01/14/2024 02/13/2024 Active Vit-Fe Fumarate-FA ( Vitamins) 28-0.8 MG tablet (17 sources) Start: 01-28-2024 End: 01-27-2025 take 1 tablet by mouth once daily Vit-Fe Fumarate-FA ( Vitamins) 28-0.8 MG tablet Indications: 16 weeks gestation of Take 1 tablet by mouth Daily 30 tablet 01/28/2024 01/27/2025 Active Problems Problem Classification Problem Date Documented Da te Episodic/Chronic Abdominal pain (1 source) Abdominal pain; Translations: [Unspecified abdominal pain] 10-19-2021 Episodic Other complications of (4 sources) Anemia of ; Translations: [Anemia complicating , second trimester] 01-28-2024 Chronic Other complications of (2 sources) Hyperemesis gravidarum; Translations: [Mild hyperemesis gravidarum] 01-14-2024 Episodic Other complications of (4 sources) Finding related to ; Translations: [ related conditions, unspecified, second trimester] 01-28-2024 Episodic Other complications of (4 sources) Vomiting of ; Translations: [Vomiting of , unspecified] 02-27-2024 Episodic Other and delivery including normal (14 sources) Second trimester ; Translations: [Encounter for supervision of normal first , second trimester] 01-14-2024 Episodic Other screening for suspected conditions (not mental disorders or infectious disease) (4 sources) Patient encounter status; Translations: [Encounter for screening for diabetes mellitus] 04-16-2024 Episodic Residual codes; unclassified (2 sources) Gestation period, 16 weeks; Translations: [16 weeks gestation of ] 01-28-2024 Episodic Results Test Name Value Interpretation Reference Range Facility US OB FOLLOW UP TRANSABDOMIN AL APPROACHon 04-29-2024 US OB FOLLOW UP TRANSABDOMINAL APPROACH EXAM: US OB FOLLOW UP TRANSABDOMINAL APPROACH HISTORY: growth. COMPARISON: OB ultrasound 02/21/2024. TECHNIQUE: Two-dimensional transabdominal grayscale ultrasound imaging of the pelvis was performed. FINDINGS: Gestation: Single Presentation: Cephalic Cardiac Activity: 147 beats per minute Placental Location: Anterior with a 2.3 cm hypoechoic area Cervical Length: 3.5 cm Amniotic Fluid Index: 13.8 cm MEASUREMENTS: BPD: 7.4 cm EGA: 29 weeks 5 days HC: 27.7 cm EGA: 30 weeks 2 days AC: 25.7 cm EGA: 29 weeks 6 days FL: 5.7 cm EGA: 29 weeks 6 days HC/AC Ratio: 1.08 The gestational age by today's ultrasound is 30 weeks 0 days (+/- eight days gestation). Estimated Weight: 1472 grams, ( 3 lb 4 oz). Weight Percentile for gestational age: 34 % ANATOMY There is an echogenic focus visualized within the left ventricle. IMPRESSION: 1. Single, live intrauterine gestation 30 weeks, 0 days by LMP. Today's ultrasound measurements correlate with a gestational age of 30 weeks 0 days. Estimated weight is 1472 grams, ( 3 lb 4 oz) which correlates to 34 %. STAN is 07/08/2024. 2. Hypoechoic area within the placenta, most likely representing a placental lockett. 3. Echogenic focus within the left ventricle. This has been noted on prior exams. Electronically Signed:Electronical ly signed by KRISTI CERVANTES II, MD, PHD at 30-Apr-2024 10:38:42 AM [facility] Normal Not Available ALL CBC WITH AUTO DIFFon BASOPHILS ABSOLUTE AUTO 0 [facility] Basophils/100 WBC (Bld) 0.2 % 0.2 - 2.0 % [facility] Eosinophils/100 WBC (Bld) 0.2 % Low 0.9 - 7.0 % [facility] Erythrocyte distribution width (RBC) [Ratio] 13 % 11.0 - 15.0 % [facility] Hematocrit (Bld) [Volume fraction] 36.7 % 36.0 - 48.0 % [facility] Hemoglobin (Bld) [Mass/Vol] 12.3 g/dL 12.0 - 16.0 g/dL [facility] IMMATURE GRANULOCYTES ABS AUTO 0.34 High [facility] Immature granulocytes/100 WBC (Bld) 2.4 % High 0.0 - 0.5 % [facility] Interpretation and review of laboratory results Abnormal [facility] LYMPHOCYTES ABSOLUTE AUTO 2.6 [facility] Lymphocytes/100 WBC (Bld) 18.7 % Low 20.5 - 60.0 % [facility] MCH (RBC) [Entitic mass] 30.1 pg 26.7 - 34.0 pg [facility] MCHC (RBC) [Mass/Vol] 33.5 g/dL 29.9 - 35.2 g/dL [facility] MCV (RBC) [Entitic vol] 90 fL 81.0 - 99.0 fL [facility] MONOCYTES ABSOLUTE AUTO 0.9 High [facility] Monocytes/100 WBC (Bld) 6.5 % 1.7 - 12.0 % [facility] NEUTROPHILS ABSOLUTE AUTO 10.2 High [facility] Neutrophils/100 WBC (Bld) 72 % 43.0 - 75.0 % [facility] Platelet mean volume (Bld) [Entitic vol] 11.5 fL 9.5 - 13.5 fL [facility] EO # [facility] PLT 227 [facility] RBC 4.08 Low [facility] WBC 14.1 High [facility] US OB BPP WO NON-STRES Son 04-09-2024 [place] [address] Ultrasound Report Signed Patient: ELIZABETH PRESTON MR#: [id number] : 2000 Acct:[id number] Age/Sex: 24 / F ADM Date: Loc: [facility] 257-[address]: RENNY GIL APRN, CNM Ordering Physician: RENNY GIL APRN, CNM Date of Service: 04/09/24 Procedure(s): US OB BPP wo non-stress Accession Number(s): [id number] cc: RENNY GIL APRN, CNM; BROOKE RODRIGUEZ [place] [id number] Patient Name: ELIZABETH PRESTON MRN: [facility]:[id number] date: 2000 Sex: F Assigned Patient Location: [facility] Current Patient Location: [facility] Accession/Order Number: [id number] Exam Date: 04/09/2024 12:41 Report Date: 04/09/2024 13:36 At the request of: RENNY GIL Procedure: US OB BPP wo non-stress EXAMINATION: US OB BPP wo non-stress HISTORY:hyperemesis gravidarum/noroviru s? COMPARISON: Ultrasound OB anatomy 01/31/2024 TECHNIQUE: Ultrasound biophysical profile was performed in the radiology department. BREATHING MOVEMENTS: 2 GROSS BODY MOVEMENTS: 2 TONE: 2 QUALITATIVE AMNIOTIC FLUID VOLUME: 2 PRESENTATION: CEPHALIC HEART RATE: 156.98 bpm AMNIOTIC FLUID VOLUME: 15.34 cm GESTATIONAL AGE: 26 weeks 5 days US/US OB BPP wo non-stress IMPRESSION: 1. Total biophysical profile score: 8 Electronically authenticated by: ERIC PACK Date: 04/09/2024 13:36 Dictated By: Eric Pack M.D. Signed By: 04/09/24 1338 DD/ 35 TD/TT: Rapid Extractor Operator: [facility] Radiology, Radiologist, MD - 04/09/2024 [place] [address] Ultrasound Report Signed Patient: ELIZABETH PRESTON MR#: [id number] : 2000 Acct:[id number] Age/Sex: 24 / F ADM Date: Loc: [facility] 257-[address]: RENNY GIL APRN, CNM Ordering Physician: RENNY GIL APRN, CNM Date of Service: 04/09/24 Procedure(s): US OB BPP wo non-stress Accession Number(s): [id number] cc: RENNY GIL APRN, CNM; BROOKE RODRIGUEZ [place] [id number] Patient Name: ELIZABETH PRESTON MRN: [id number] date: 2000 Sex: F Assigned Patient Location: [facility] Current Patient Location: [facility] Accession/Order Number: [id number] Exam Date: 04/09/2024 12:41 Report Date: 04/09/2024 13:36 At the request of: RENNY GIL Procedure: US OB BPP wo non-stress EXAMINATION: US OB BPP wo non-stress HISTORY:hyperemesis gravidarum/noroviru s? COMPARISON: Ultrasound OB anatomy 01/31/2024 TECHNIQUE: Ultrasound biophysical profile was performed in the radiology department. BREATHING MOVEMENTS: 2 GROSS BODY MOVEMENTS: 2 TONE: 2 QUALITATIVE AMNIOTIC FLUID VOLUME: 2 PRESENTATION: CEPHALIC HEART RATE: 156.98 bpm AMNIOTIC FLUID VOLUME: 15.34 cm GESTATIONAL AGE: 26 weeks 5 days US/US OB BPP wo non-stress IMPRESSION: 1. Total biophysical profile score: 8 Electronically authenticated by: ERIC PACK Date: 04/09/2024 13:36 Dictated By: Eric Pack M.D. Signed By: 04/09/241337 DD/ 35 TD/TT: Rapid Extractor Operator: [facility] Radiology Study observation (narrative) [facility] US OB BPP WO NON-STRES SOrdered By: Radiologist Radiology on 04-09-[address] [facility] e Work Phone: XR CHEST 2Von 04-09-[address] [address] XRay Report Signed Patient: ELIZABETH PRESTON MR#: [id number] : 2000 Acct:[id number] Age/Sex: 24 / F ADM Date: Loc: [facility] 257-[address]: RENNY GIL APRN, CNM Ordering Physician: RENNY GIL APRN, CNM Date of Service: 04/09/24 Procedure(s): XR chest 2V Accession Number(s): [id number] cc: RENNY GIL APRN, CNM; BROOKE RODRIGUEZ [place] [id number] Patient Name: ELIZABETH PRESTON MRN: [facility]:[id number] date: 2000 Sex: F Assigned Patient Location: [facility] Current Patient Location: [facility] Accession/Order Number: [id number] Exam Date: 04/09/2024 14:19 Report Date: 04/09/2024 15:05 At the request of: RENNY GIL Procedure: XR chest 2V EXAMINATION: XR chest 2V HISTORY: chest pain vs/indigestion COMPARISON: No relevant comparison available. FINDINGS: LUNGS: No significant pulmonary parenchymal abnormalities. VASCULATURE: No increased pulmonary vasculature. PLEURA: No pneumothorax, effusion, or pleural thickening. CARDIAC: No cardiomegaly or cardiac silhouette abnormality. MEDIASTINUM: No visible mass or adenopathy. BONES: No fracture or visible bone lesion. OTHER: Negative. XR/XR chest 2V IMPRESSION: 1. Normal examination. Electronically authenticated by: ERIC PACK Date: 04/09/2024 15:05 Dictated By: Eric Pack M.D. Signed By: 04/09/24 1508 DD/ 1505 TD/TT: Rapid Extractor Operator: [facility] Radiology, Radiologist, MD - 04/09/2024 The [place] [id number] XRay Report Signed Patient: ELIZABETH PRESTON MR#: [id number] : 2000 Acct:[id number] Age/Sex: 24 / F ADM Date: Loc: [facility] 257-[address]: RENNY GIL APRN, CNM Ordering Physician: RENNY GIL APRN, CNM Date of Service: 04/09/24 Procedure(s): XR chest 2V Accession Number(s): [id number] cc: RENNY GIL APRN, CNM; BROOKE RODRIGUEZ [place] [id number] Patient Name: ELIZABETH PRESTON MRN: [id number] date: 2000 Sex: F Assigned Patient Location: [facility] Current Patient Location: [facility] Accession/Order Number: [id number] Exam Date: 04/09/2024 14:19 Report Date: 04/09/2024 15:05 At the request of: RENNY GIL Procedure: XR chest 2V EXAMINATION: XR chest 2V HISTORY: chest pain vs/indigestion COMPARISON: No relevant comparison available. FINDINGS: LUNGS: No significant pulmonary parenchymal abnormalities. VASCULATURE: No increased pulmonary vasculature. PLEURA: No pneumothorax, effusion, or pleural thickening. CARDIAC: No cardiomegaly or cardiac silhouette abnormality. MEDIASTINUM: No visible mass or adenopathy. BONES: No fracture or visible bone lesion. OTHER: Negative. XR/XR chest 2V IMPRESSION: 1. Normal examination. Electronically authenticated by: ERIC PACK Date: 04/09/2024 15:05 Dictated By: Eric Pack M.D. Signed By: 04/09/24 1508 DD/ 1505 TD/TT: Rapid Extractor Operator: [facility] [employer] Radiology Study observation (narrative) [facility] [employer] XR CHEST 2VOrdered By: Radio logist Radiology on 04-09-2024 [facility] Work Phone: Automated erythrocytes count in urine sediment (number/area)Ordered By: Telly Moreno on 10-19-2021 RBC Auto (Urine sed) [#/Area] 0-1 [HPF] 0-4 [facility] Automated leukocytes count i n urine sediment (number/area)Ordered By: Telly Kwonzi on 10-19-2021 WBC Auto (Urine sed) [#/Area] 1-2 [HPF] 0-4 [facility] Bilirubin Test strip Ql (U)O rdered By: Telly Moreno on 10-19-2021 Bilirubin Ql (U) Negative Negative [facility] Color Auto (U)Ordered By: Armani Moreno on 10-19-2021 Color (U) Yellow Yellow [facility] Dipstick and Microscopicon 0 10-19-2021 Appearance (U) Clear Normal Clear [facility] Comment on above: Order Comment: Name Collection Type:: Clean-Voided Midstream Performed By: #### U HCG, ADDONUAPLUS #### [facility] [address] [place] [id number] [place] Bacteria,Urine None Seen Normal None Seen [facility] Comment on above: Order Comment: Name Collection Type:: Clean-Voided Midstream Performed By: #### U HCG, ADDONUAPLUS #### [facility] [address] [place], [place] [id number] [place] Bilirubin,Urine Negative Normal Negative [facility] Comment on above: Order Comment: Name Collection Type:: Clean-Voided Midstream Performed By: #### U HCG, ADDONUAPLUS #### [facility] [address] [place] [address] [place] Color (U) Yellow Normal Yellow [facility] Comment on above: Order Comment: Name Collection Type:: Clean-Voided Midstream Performed By: #### U HCG, ADDONUAPLUS #### [facility] [address] [place] [id number] [place] Glucose Ql (U) Normal Normal Normal [facility] Comment on above: Order Comment: Name Collection Type:: Clean-Voided Midstream Performed By: #### U HCG, ADDONUAPLUS #### [facility] [address] [place] [id number] [place] Hyaline Casts,Urine 0-8 Normal 0-8 [facility] Comment on above: Order Comment: Name Collection Type:: Clean-Voided Midstream Performed By: #### U HCG, ADDONUAPLUS #### [facility] [address] [place] [address] Ketones Ql (U) Trace High Negative [facility] Comment on above: Order Comment: Name Collection Type:: Clean-Voided Midstream Performed By: #### U HCG, ADDONUAPLUS #### [address] Leukocyte esterase Test strip Ql (U) Negative Normal Negative [facility] Comment on above: Order Comment: Name Collection Type:: Clean-Voided Midstream Performed By: #### U HCG, ADDONUAPLUS #### [address] Nitrite,Urine Negative Normal Negative [facility] Comment on above: Order Comment: Name Collection Type:: Clean-Voided Midstream Performed By: #### U HCG, ADDONUAPLUS #### [address] Occult Blood,Urine Trace High Negative [facility] Comment on above: Order Comment: Name Collection Type:: Clean-Voided Midstream Performed By: #### U HCG, ADDONUAPLUS #### [address] pH (U) 6.5 [pH] Normal 5.0-9.0 [facility] Comment on above: Order Comment: Name Collection Type:: Clean-Voided Midstream Performed By: #### U HCG, ADDONUAPLUS #### [facility] [address] [place] [address] [place] Protein,Urine Trace High Negative [facility] Comment on above: Order Comment: Name Collection Type:: Clean-Voided Midstream Performed By: #### U HCG, ADDONUAPLUS #### [place] [address] [place] RBC LM.HPF (Urine sed) [#/Area] 0 /[HPF] Normal 0-4 [facility] Comment on above: Order Comment: Name Collection Type:: Clean-Voided Midstream Performed By: #### U HCG, ADDONUAPLUS #### [facility] [address] [place] [address] Specificy [place],Urine 1.030 Normal 1.001-1.030 [facility] Comment on above: Order Comment: Name Collection Type:: Clean-Voided Midstream Performed By: #### U HCG, ADDONUAPLUS #### [address] Squamous Epithelial Cell,Urine 3-4 High 0-2 [facility] Comment on above: Order Comment: Name Collection Type:: Clean-Voided Midstream Performed By: #### U HCG, ADDONUAPLUS #### [facility] [address] [place] [address] Urobilinogen,Urine >=2 High Normal [facility] Comment on above: Order Comment: Name Collection Type:: Clean-Voided Midstream Performed By: #### U HCG, ADDONUAPLUS #### [address] WBC,Urine 1-2 Normal 0-4 [facility] Comment on above: Order Comment: Name Collection Type:: Clean-Voided Midstream Performed By: #### U HCG, ADDONUAPLUS #### [facility] [address] [place] [address] HCG ( test) IA.rapi d Ql (U)Ordered By: PROVIDER TEMP on 10-19-2021 HCG ( test) Ql (U) Negative [facility] HCG,Urineon 10-19-2021 Beta HCG ( test) Ql (U) Negative Normal [facility] Comment on above: Order Comment: Name Collection Type:: Clean-Voided Midstream Result Comment: PERF ORMED BY: [address] [place] [address] PATHOLOGIST LABOR GANG SUPERVISOR MELVA KUHN M.D. Performed By: #### U HCG, ADDONUAPLUS #### [facility] [address] [place] [address] Ketones Auto test strip (U) [Mass/Vol]Ordered By: Telly Moreno on 10-19-2021 Ketones (U) [Mass/Vol] Trace Negative [facility] - UrinalysisOrder ed By: Telly Moreno on 10-19-2021 Hyaline casts LM Ql (Urine sed) 0-8 [LPF] 0-8 [facility] Nitrite Test strip Ql (U)Ord ered By: Telly Moreno on 10-19-2021 Nitrite Ql (U) Negative Negative [facility] Protein Auto test strip (U) [Mass/Vol]Ordered By: Telly Moreno on 10-19-2021 Protein (U) [Mass/Vol] Trace mg/dL Negative [facility] Specific gravity Auto test s trip (U) [Rel density]Ordered By: Telly Moreno on 10-19-2021 Specific gravity (U) [Rel density] 1.030 1.001-1.030 [facility] Squamous epithelial cells de tection in urine sediment by light microscopyOrdered By: Telly Moreno on 10-19-2021 Epithelial cells.squamous LM Ql (Urine sed) 3-4 [HPF] 0-2 [facility] Urine bacteria detection by automated methodOrdered By: Telly Moreno on 10-19-2021 Bacteria Auto Ql (U) None seen None Seen [facility] Urine clarity by refractomet ry automatedOrdered By: Telly Moreno on 10-19-2021 Clarity Refractometry automated (U) Clear Clear [facility] Urine glucose measurement by automated test strip (mass/volume)Ordered By: Telly Moreno on 10-19-2021 Glucose Auto test strip (U) [Mass/Vol] Normal mg/dL Normal [facility] Urine hemoglobin detection b y automated test stripOrdered By: Telly Moreno on 10-19-2021 Hemoglobin Auto test strip Ql (U) Trace Negative [facility] Urine leukocyte esterase det ection by automated test stripOrdered By: Telly Moreno on 10-19-2021 Leukocyte esterase Auto test strip Ql (U) Negative Negative [facility] Urobilinogen Auto test strip (U) [Mass/Vol]Ordered By: Telly Moreno on 10-19-2021 Urobilinogen (U) [Mass/Vol] mg/dL Normal [facility] pH Auto test strip (U)Ordere d By: Telly Moreno on 10-19-2021 pH (U) 6.5 [pH] 5.0-9.0 [facility] Vital Signs Date Time Vital Sign Value Performing Clinician Facility 04-16-2024 09:08-0500 Body mass index (BMI) [Ratio] 17.85 kg/m2 Renny Floro CNM Work Phone: [facility] 04-16-2024 09:08-0500 Body weight 47.17 kg Renny Floro CNM Work Phone: [facility] 04-09-2024 10:35-0500 Body mass index (BMI) [Ratio] 18.71 kg/m2 Renny Floro CNM Work Phone: [facility] 04-09-2024 10:35-0500 Body weight 49.44 kg Renny Floro CNM Work Phone: [facility] 04-09-2024 10:35-0500 Diastolic blood pressure 78 mm[Hg] Renny Floro CNM Work Phone: [facility] 04-09-2024 10:35-0500 Systolic blood pressure 120 mm[Hg] Renny Floro CNM Work Phone: [facility] 02-27-2024 08:33-0500 Body mass index (BMI) [Ratio] 19.4 kg/m2 Renny Floro CNM Work Phone: [facility] 02-27-2024 08:33-0500 Body weight 51.26 kg Renny Floro CNM Work Phone: [facility] 02-27-2024 08:33-0500 Diastolic blood pressure 80 mm[Hg] Renny Floro CNM Work Phone: [facility] 02-27-2024 08:33-0500 Systolic blood pressure 118 mm[Hg] Renny Floro CNM Work Phone: [facility] 01-28-2024 09:26-0500 Body mass index (BMI) [Ratio] 17.68 kg/m2 Renny Floro CNM Work Phone: [facility] 01-28-2024 09:26-0500 Body weight 46.72 kg Renny WEAVERM Work Phone: [facility] 01-14-2024 08:56-0500 Body mass index (BMI) [Ratio] 15.45 kg/m2 Renny WEAVERM Work Phone: [facility] 01-14-2024 08:56-0500 Body weight 40.82 kg Renny WEAVERM Work Phone: [facility] 01-14-2024 08:56-0500 Diastolic blood pressure 70 mm[Hg] Renny WEAVERM Work Phone: [facility] 01-14-2024 08:56-0500 Systolic blood pressure 110 mm[Hg] Renny WEAVERM Work Phone: [facility] 01-07-2024 10:21-0500 Body mass index (BMI) [Ratio] 14.93 kg/m2 Renny Gil CNM Work Phone: [facility] 01-07-2024 10:21-0500 Body weight 39.46 kg Renny WEAVERM Work Phone: [facility] 10-19-2021 20:03-0400 Body temperature 99 [degF] MD Brooke Rodriguez Work Phone: [facility] 10-19-2021 20:03-0400 Diastolic blood pressure 56 mm[Hg] MD Brooke Rodriguez Work Phone: [facility] 10-19-2021 20:03-0400 Heart rate 70 /min MD Brooke Rodriguez Work Phone: [facility] 10-19-2021 20:03-0400 Respiratory rate 18 /min MD Brooke Rodriguez Work Phone: [facility] 10-19-2021 20:03-0400 SaO2% (BldA) [Mass fraction] 99 % MD Brooke Rodriguez Work Phone: [facility] 10-19-2021 20:03-0400 Systolic blood pressure 118 mm[Hg] MD Brooke Rodriguez Work Phone: [facility] 10-19-2021 17:13-0400 Body height 157.48 cm MD Brooke Rodriguez Work Phone: [facility] 10-19-2021 17:13-0400 Body weight 52.45 kg MD Brooke Rodriguez Work Phone: [facility] Encounters Encounter Date Encounter Type Care Provider Facility Start: 04-29-2024 End: 04-29-2024 ambulatory RENNY L FLORO Not Available Start: 04-16-2024 End: 04-16-2024 Bamboo flowsheet Renny L Floro CNM Work Phone: [facility] Start: 04-16-2024 End: 04-16-2024 Bamboo flowsheet Renny L Floro CNM Work Phone: [facility] Start: 04-16-2024 End: 04-16-2024 ambulatory RENNY L FLORO Not Available Start: 04-16-2024 End: 04-16-2024 Subsequent care visit Renny Soledad Damono CNM Work Phone: [facility] Comment on above: Encounter for prenat al care of first , second trimester (Primary Dx); Screening for diabetes mellitus (DM); Screening for iron deficiency anemia; related condition in third trimester Start: 04-09-2024 End: 04-09-2024 Bamboo flowsheet Renny L Floro CNM Work Phone: [facility] Start: 04-09-2024 End: 04-09-2024 Bamboo flowsheet Renny L Floro CNM Work Phone: [facility] Start: 04-09-2024 End: 04-09-2024 [facility] Result Encounter Renny L Floro CNM Work Phone: [facility] Unsolicited Start: 04-09-2024 End: 04-09-2024 ambulatory RENNY L FLORO Not Available Start: 04-09-2024 End: 04-09-2024 Subsequent care visit Renny Damono CNM Work Phone: [facility] Comment on above: Encounter for prenat al care of first , antepartum, third trimester (Primary Dx); Vomiting ; Anemia during in second trimester Start: 04-06-2024 End: 04-06-2024 Telephone encounter Renny Damono CNM Work Phone: [facility] Start: 03-26-2024 End: 03-26-2024 ambulatory [...] 02-27-2024 End: 02-27-2024 Subsequent care visit Renny Soledad Floro CNM Work Phone: [facility] Comment on above: Encounter for prenat al care of first , antepartum, third trimester (Primary Dx); Vomiting Start: 01-28-2024 End: 01-28-2024 ambulatory RENNY L FLORO Not Available Start: 01-28-2024 End: 01-28-2024 Subsequent care visit Renny Gil CNM Work Phone: [facility] Comment on above: Anemia during pregna ncy in second trimester (Primary Dx); related condition in second trimester; 16 weeks gestation of Start: 01-14-2024 End: 01-14-2024 Bamboo flowsheet Renny Damono CNM Work Phone: [facility] Start: 01-14-2024 End: 01-14-2024 Bamboo flowsheet Renny Damono CNM Work Phone: [facility] Start: 01-14-2024 End: 01-14-2024 ambulatory RENNY DAMONO Not Available Start: 01-14-2024 End: 01-14-2024 Initial care visit Renny Gil CNM Work Phone: [facility] Comment on above: GA: 14w6d Start: 01-07-2024 End: 01-07-2024 Bamboo flowsheet Renny Damono CNM Work Phone: [facility] Start: 01-07-2024 End: 01-07-2024 Bamboo flowsheet Renny Damono CNM Work Phone: [facility] Start: 01-07-2024 End: 01-07-2024 ambulatory Renny Damono CNM Work Phone: [facility] Comment on above: GA: 13w6d Start: 12-31-2023 End: 12-31-2023 Telephone encounter Renny Damono CNM Work Phone: [facility] Start: 10-19-2021 End: 10-19-2021 Emergency department patient visit MD Brooke Rodriguez Work Phone: [facility]Emer[facility] Procedures Date Procedure Procedure Detail Performing Clinician Start: 04-09-2024 XR CHEST 2V Renny Damono CNM Work Phone: Start: 04-09-2024 US OB BPP WO NON-STRESS Renny Gil CNM Work Phone: Start: 04-09-2024 ALL CBC WITH AUTO DIFF Renny Gil CNM Work Phone: Plan of Treatment Date Care Activity Detail Author Start: 04-16-2024 End: 04-16-2025 CBC panel - Blood by Automated count CBC Lab Routine Screening for iron deficiency anemia Expected: 04/16/2024 (Approximate), Expires: 04/16/2025 [facility] Work Phone: Comment on above: Expected: 04/16/2024 (Approximate), Expires: 04/16/2025 Start: 04-16-2024 End: 04-16-2025 GLUCOSE, GESTATIONAL SCREEN (50G)-135 CUTOFF GLUCOSE, GESTATIONAL SCREEN (50G)-135 CUTOFF Lab Routine Screening for diabetes mellitus (DM) Expected: 04/16/2024 (Approximate), Expires: 04/16/2025 [facility] Comment on above: Expected: 04/16/2024 (Approximate), Expires: 04/16/2025 Start: 04-16-2024 End: 04-16-2025 US for US OB follow up transabdominal approach Imaging Routine related condition in third trimester Expected: 04/16/2024, Expires: 04/16/2025 [facility] Comment on above: Expected: 04/16/2024 , Expires: 04/16/2025 Start: 04-16-2024 End: 04-16-2024 Patient encounter procedure 04/16/2024 9:00 AM EST Routine [facility] [address] [place] [id number] Renny Gil CNM [address] [place], [place] [id number] [facility] Start: 03-26-2024 End: 03-26-2024 Patient encounter procedure 03/26/2024 3:45 PM EST Routine [facility] [address] [place] [address] Renny Gil, CNM [address] [facility] [place] [address] Arrived [facility] Comment on above: Arrived Start: 03-26-2024 End: 03-26-2024 Patient encounter procedure 03/26/2024 8:30 AM EST Routine [facility] [address] [place] [id number] Renny Gil, CNM [address] [facility] [place] [address] [facility] Start: 02-27-2024 End: 02-27-2024 Patient encounter procedure 02/27/2024 8:30 AM EST Routine [facility] [address] [place] [id number] Renny Gil, MEG [address] [facility] [address] [facility] Start: 01-28-2024 End: 01-27-2025 US for US OB 14+ weeks anatomy scan Imaging Routine related condition in second trimester Expected: 01/28/2024, Expires: 01/27/2025 [facility] Work Phone: Comment on above: Expected: 01/28/2024 , Expires: 01/27/2025 Start: 01-28-2024 End: 01-28-2024 Patient encounter procedure 01/28/2024 8:30 AM EST Routine [facility] [address] [place] [id number] Renny Gil, CNM [address] [facility] [place] [address] [facility] Start: 01-15-2024 End: 01-15-2024 ambulatory 01/15/2024 1:00 PM EST Initial [facility] [address] [place] [address] Renny Gil, CNM [address] [place] [id number] [facility] Start: 01-14-2024 End: 2025 ABO/Rh ABO/Rh Lab Routine examination or test, positive result Expected: 01/14/2024 (Approximate), Expires: 2025 [facility] Comment on above: Expected: 01/14/2024 (Approximate), Expires: 2025 Start: 01-14-2024 End: 2025 Antibody screen Antibody screen Lab Routine examination or test, positive result Expected: 01/14/2024 (Approximate), Expires: 2025 [facility] Comment on above: Expected: 01/14/2024 (Approximate), Expires: 2025 Start: 01-14-2024 End: 2025 Bacteria identified in Urine by Culture Urine culture Microbiology Routine examination or test, positive result Expected: 01/14/2024 (Approximate), Expires: 2025 [facility] Comment on above: Expected: 01/14/2024 (Approximate), Expires: 2025 Start: 01-14-2024 End: 2025 CBC panel - Blood by Automated count CBC Lab Routine examination or test, positive result Expected: 01/14/2024 (Approximate), Expires: 2025 [facility] Comment on above: Expected: 01/14/2024 (Approximate), Expires: 2025 Start: 01-14-2024 End: 2025 DRUG TOX MONITORIGN 6 W/ CONF,URINE DRUG TOX MONITORIGN 6 W/ CONF,URINE Lab Routine examination or test, positive result Expected: 01/14/2024 (Approximate), Expires: 2025 [facility] Comment on above: Expected: 01/14/2024 (Approximate), Expires: 2025 Start: 01-14-2024 End: 2025 Hemoglobin A1c/Hemoglobin.total in Blood Hemoglobin A1c Lab Routine examination or test, positive result Expected: 01/14/2024 (Approximate), Expires: 2025 [facility] Comment on above: Expected: 01/14/2024 (Approximate), Expires: 2025 Start: 01-14-2024 End: 2025 Hepatitis B virus surface Ag [Presence] in Serum or Plasma by Immunoassay Hepatitis B surface antigen Lab Routine examination or test, positive result Expected: 01/14/2024 (Approximate), Expires: 2025 [facility] Work Phone: Comment on above: Expected: 01/14/2024 (Approximate), Expires: 2025 Start: 01-14-2024 End: 2025 Hepatitis C virus Ab [Presence] in Serum or Plasma by Immunoassay Hepatitis C antibody Lab Routine examination or test, positive result Expected: 01/14/2024 (Approximate), Expires: 2025 [facility] Comment on above: Expected: 01/14/2024 (Approximate), Expires: 2025 Start: 01-14-2024 End: 2025 HIV-1/HIV-2 antigen/antibody combination immunoassay HIV-1 and HIV-2 antibodies Lab Routine examination or test, positive result Expected: 01/14/2024 (Approximate), Expires: 2025 [facility] Comment on above: Expected: 01/14/2024 (Approximate), Expires: 2025 Start: 01-14-2024 End: 2025 Neisseria gonorrhoeae DNA [Presence] in Cervical mucus by DARYL with probe detection C. trachomatis / N. gonorrhoeae, DNA probe Pathology and Cytology Routine examination or test, positive result Expected: 01/14/2024 (Approximate), Expires: 2025 [facility] Comment on above: Expected: 01/14/2024 (Approximate), Expires: 2025 Start: 01-14-2024 End: 2025 Reagin Ab [Presence] in Serum by RPR RPR Lab Routine examination or test, positive result Expected: 01/14/2024 (Approximate), Expires: 2025 [facility] Comment on above: Expected: 01/14/2024 (Approximate), Expires: 2025 Start: 01-14-2024 End: 2025 Rubella antibody, IgG Rubella antibody, IgG Lab Routine examination or test, positive result Expected: 01/14/2024 (Approximate), Expires: 2025 [facility] Comment on above: Expected: 01/14/2024 (Approximate), Expires: 2025 Start: 01-14-2024 End: 2025 TSH W/REFLEX TO FT4 TSH W/REFLEX TO FT4 Lab Routine examination or test, positive result Expected: 01/14/2024 (Approximate), Expires: 2025 [facility] Comment on above: Expected: 01/14/2024 (Approximate), Expires: 2025 Start: 01-14-2024 End: 2025 URINALYSIS MICROSCOPIC URINALYSIS MICROSCOPIC Lab Routine examination or test, positive result Expected: 01/14/2024 (Approximate), Expires: 2025 [facility] Comment on above: Expected: 01/14/2024 (Approximate), Expires: 2025 Start: 10-27-2023 Influenza vaccination Influenza Vacc ine (#1) [facility] Patient referral [facility] Work Phone: Payers Date Payer Category Payer Medicaid [place] [id number] 2023 Medicaid [id number] 2022 Private Health Insurance [employer] [id number] 2022 Unknown [id number] 2002 Unknown [id number] 1259 2002 Unknown [id number] 1259 2002 Unknown [id number] 1259 2002 Unknown [id number] 1259 2002 Unknown [id number] 1259 2002 Unknown [id number] 1259 2002 Unknown [id number] 1259 2002 Unknown [id number] 1259 Social History Date Type Detail Facility Start: 10-19-2021 End: 01-07-2024 Tobacco smoking status NHIS Never smoked tobacco (finding) [facility] Start: 2002 Sex Assigned At Female F [facility] Tobacco smoking stat us NHIS Tobacco smoking consumption unknown [facility] Start: [...] [facility] Clinical Notes 12-31-2023 to 04-16-2024 Renny Gil CNM - 04/16/2024 9:00 AM ESTErnariuma Gil, MEG - 04/09/2024 10:30 AM ESTTelephone Encounter - Bolivar Soares - 04/06/2024 9:04 AM ESTValerie Soledad Gil CNM - 02/27/2024 8:30 AM EST Note Date & Type Note Facility 04-16-2024 History of Presen t illness Narrative Subjective No chief complaint on file. Elizabeth Preston is a 24 y.o. at 28w1d with a working estimated date of delivery of 07/08/2024, by Ultrasound who presents for a routine visit. She denies vaginal bleeding, leakage of fluid, decreased movements, or contractions. OB History Para Term AB Living 1 SAB IAB Ectopic Multiple Live Births # Outcome Date GA Lbr Jomar/2nd Weight Sex Type Anes PTL Lv 1 Current Her is complicated by: recent hospitalization for nausea and vomiting and hyperemesis The following portions of the chart were reviewed this encounter and updated as appropriate: Objective Physical Exam weight: 104 lb Expected Total Weight Gain: 27 lb-39 lb Pregravid BMI: 14.93 Urine protein Urine glucose Labs: reviewed Imaging Assessment/Plan Diagnoses and all orders for this visit: Encounter for care of first , second trimester Screening for diabetes mellitus (DM) - GLUCOSE, GESTATIONAL SCREEN (50G)-135 CUTOFF; Future Screening for iron deficiency anemia - CBC; Future related condition in third trimester - US OB follow up transabdominal approach; Future Continue vitamin. Labs reviewed. Rhogam not needed, blood type is O+ positive GTT today Follow up in 2 weeks for a routine visit. documented in this encounter [facility] 04-09-2024 History of Presen t illness Narrative Subjective No chief complaint on file. Elizabeth Preston is a 24 y.o. at 27w1d with a working estimated date of delivery of 07/08/2024, by Ultrasound who presents for a routine visit. She denies vaginal bleeding, leakage of fluid, decreased movements, or contractions. OB History Para Term AB Living 1 SAB IAB Ectopic Multiple Live Births # Outcome Date GA Lbr Jomar/2nd Weight Sex Type Anes PTL Lv 1 Current Her is complicated by: hyperemesis, recent norovirus, The following portions of the chart were reviewed this encounter and updated as appropriate: Objective Physical Exam weight: 109 lb Expected Total Weight Gain: 27 lb-39 lb Pregravid BMI: 14.93 BP: 120/78 Urine protein Urine glucose Labs: reviewed Imaging Assessment/Plan Diagnoses and all orders for this visit: Encounter for care of first , antepartum, third trimester Vomiting Anemia during in second trimester Patient continue to c/o stomach cramping, vomiting. Has vomited 4 times today so far. She has been in and out of [facility] Er x3. She was told she had Norovirus. She has stopped having diarrhea but continues to vomit. She is pale, laying in the position with her legs up to her chest and states her stomach hurts and that she just vomited in our trash can. Send to [facility] Orders given to Janay CROCKETT I will keep her overnight and hydrate her and give antiemetics. Her ketones in urine are elevated and small amount protein. I want to keep her overnight and will assess for HG vs viral illness. If patient has HG I will send referral to [facility] for evaluation of Zofran pump. Follow up in 2 weeks for a routine visit. documented in this encounter [facility] 04-06-2024 Telephone encounter Note [facility] Ob Triage called asking for any office notes , labs,etc. I sent her labs but didn't see any office notes or other info I could send , [facility] 04-06-2024 Miscellaneous Notes [facility] Ob Triage called asking for any office notes , labs,etc. I sent her labs but didn't see any office notes or other info I could send , documented in this encounter [facility] 04-06-2024 Telephone encounter Note Patient calling this morning to schedule appt with Clare today. She has vomiting and pain. She is 26 weeks . She went to the [facility] ER last night and was diagnosed with flu and was told she would be better in 24 hours. She was pulling back into the same ER as we were talking- she is not feeling better. Please advise. Thank you. [facility] 04-06-2024 Miscellaneous Notes Patient calling this morning to schedule appt with Clare today. She has vomiting and pain. She is 26 weeks . She went to the [facility] ER last night and was diagnosed with flu and was told she would be better in 24 hours. She was pulling back into the same ER as we were talking- she is not feeling better. Please advise. Thank you. documented in this encounter [facility] 02-27-2024 History of Presen t illness Narrative Subjective No chief complaint on file. Elizabeth Preston is a 24 y.o. at 21w1d [...] a routine visit. documented in this encounter [facility] 01-28-2024 History of Presen t illness Narrative Subjective No chief complaint on file. Elizabeth Preston is a 24 y.o. at 16w6d [...] a routine visit. documented in this encounter [facility] 01-14-2024 History of Presen t illness Narrative Subjective No chief complaint on file. Elizabeth Preston is a 24 y.o. at 14w6d [...] complicated by: pt was admitted at the [facility] last week. She states she is [...] a routine visit. documented in this encounter [facility] 01-07-2024 History of Presen t illness Narrative Subjective Elizabeth Preston is a 24 y.o. at 20w6d with a working estimated date of delivery of 07/08/2024, by Ultrasound who presents for an initial visit. This is unplanned. Patient Care Team: Brooke Rodriguez MD as PCP - General (Family [...] also given office phone number and [facility] number to call in case of an emergency or after hours needs. PVU and all questions answered. We did discuss place of delivery. Patient should plan to go to [facility] for all services unless an emergency and they need to go to the closest ER. We can make other arrangements possibly if patient would like to deliver at another facility but I did explain I am now at [facility] 100% of the time and would like to do all deliveries there. documented in this encounter [facility] 12-31-2023 Telephone encounter Note Pt called to schedule an appt with Claer. She has had 1 us and 0 . Pt states she is 13 wks tomorrow. [facility] 12-31-2023 Miscellaneous Notes Pt called to schedule an appt with Clare. She has had 1 us and 0 . Pt states she is 13 wks tomorrow. documented in this encounter [facility] Evaluation note No assessment inform ation available [facility] Work Phone: Evaluation note Diagnosis Hyperemesis [...] positive result- Primary documented in this encounter [facility]* Diagnosis Encounter for care of first , antepartum, third trimester- Primary Vomiting Unspecified vomiting of , unspecified as to episode of care documented [facility] this encounter [facility] Diagnosis Encounter for care of first , antepartum, third trimester- Primary Vomiting Unspecified vomiting of , unspecified as to episode of care Anemia during in second trimester documented in this encounter [facility] Diagnosis Encounter for care of first , second trimester- Primary Screening for diabetes mellitus (DM) Screening for diabetes mellitus Screening for iron deficiency anemia related condition in third trimester documented in this encounter [facility] Chief [...] Team Status: Inactive Member Role Status Dates Brooke Rodriguez MD Primary Care Provider Active Telly Moreno DO Emergency Provider Active Team Status: Active Member Role Status Dates Brooke Rodriguez MD Primary Care Provider Active Market Research Specialist Relationship Specialty Start Date End Date Brooke Rodriguez MD [facility] [place] [address] PCP - General Family Medicine 01/14/24 Market Research Specialist Relationship Specialty Start Date End Date Brooke Rodriguez MD [address] [address] PCP - General Family Medicine 01/14/24 Market Research Specialist Relationship Specialty Start Date End Date Brooke Rodriguez MD [address] [address] PCP - General Family Medicine 01/14/24 Market Research Specialist Relationship Specialty Start Date End Date Brooke Rodriguez MD [address] [address] PCP - General Family Medicine 01/14/24 Market Research Specialist Relationship Specialty Start Date End Date Brooke Rodriguez MD [address] [address] PCP - General Family Medicine 01/14/24 Market Research Specialist Relationship Specialty Start Date End Date Brooke Rodriguez MD [address] [address] PCP - General Family Medicine 01/14/24 Market Research Specialist Relationship Specialty Start Date End Date Brooke Rodriguez MD [address] [address] PCP - General Family Medicine 01/14/24 Market Research Specialist Relationship Specialty Start Date End Date Brooke Rodriguez MD [address] [place] [address] PCP - General Family Medicine 01/14/24 Market Research Specialist Relationship Specialty Start Date End Date Brooke Rodriguez MD [address] [place] [address] PCP - General Family Medicine 01/14/24 Goals (unrecognized section and content) Goals may be documented in a n alternate section INFORMATION SOURCE (unrecogn ized section and content) DATE CREATED AUTHOR 11/02/2021 [facility] DATE CREATED AUTHOR AUTHOR'Zelda AN 05/04/2024 [facility] dical Specialists [facility] FOR RECORDS PERTAINING TO PATIENTS WHO ARE [...] BE BASED ON THE PRIMARY CLINICAL RECORDS. [facility] [employer] [facility]. provides no warranty or guarantee of the accuracy or completeness of information in this document.
[2024-05-06 16:09] VITALS: BP 135/72; PULSE 75
[2024-05-06] MEDS: PROMETHAZINE HCL 25 MG SUPP.RECT PR (16:11)
[2024-05-06 17:23] LABS: Bilirubin Urine NEGATIVE (NEGATIVE); Blood Urine NEGATIVE (NEGATIVE); Clarity Urine CLEAR (CLEAR); Color Urine YELLOW (YELLOW); Glucose Urine UA NEGATIVE (NEGATIVE); Ketones Urine >=80 mg/dL (NEGATIVE); Leukocyte Esterase Urine NEGATIVE (NEGATIVE); Nitrite Urine NEGATIVE (NEGATIVE); Protein Urine 100 mg/dL (NEG/TRACE); Specific Gravity Urine >=1.030 (1.005-1.025)
[2024-05-06 17:24] LABS: Urine Microscopic Indicated YES
[2024-05-06] MEDS: LACTATED RINGER'S SOLUTION 1,000 ML 1000 ML IV (17:27)
[2024-05-06 17:33] LABS: Bacteria Urine TRACE #/HPF (NONE SEEN); Cast Seen? NONE SEEN #/LPF (NONE SEEN); Crystals Seen? None Seen #/HPF (None Seen); Mucus Urine MODERATE (NONE SEEN); RBC Urine 0-2 #/HPF (0-2); Squamous Epithelial Cell Urine FEW #/LPF (NONE/RARE); Urine Culture Indicated NO; WBC Urine NONE SEEN #/HPF (NONE SEEN)
[2024-05-06 18:09] LABS: Basophils Percent Auto 0.1 % (0.2-2.0); Eosinophils Absolute Auto 0.1 10^3/uL (0.0-0.7); Eosinophils Percent Auto 0.2 % (0.9-7.0); Hematocrit 34.2 % (36.0-48.0); Hemoglobin 11.8 g/dL (12.0-16.0); Immature Granulocytes Abs Auto 0.37 10^3/uL (0.00-0.03); Immature Granulocytes Pct Auto 1.8 % (0.0-0.5); Lymphocytes Absolute Auto 1.7 10^3/uL (1.2-3.8); Lymphocytes Percent Auto 8.2 % (20.5-60.0); Mean Corpuscular HGB Conc 34.5 g/dL (29.9-35.2); Mean Corpuscular Hemoglobin 30.3 pg (26.7-34.0); Mean Corpuscular Volume 87.9 fL (81.0-99.0); Mean Platelet Volume 11.2 fL (9.5-13.5); Monocytes Absolute Auto 0.6 10^3/uL (0.3-0.8); Monocytes Percent Auto 2.9 % (1.7-12.0); Neutrophils Absolute Auto 18.3 10^3/uL (1.4-6.5); Neutrophils Percent Auto 86.8 % (43.0-75.0); Platelet Count 269 10^3/uL (150-450); Red Blood Count 3.89 10^6/uL (4.20-5.40); Red Cell Distribution Width 14.4 % (11.0-15.0); White Blood Count 21.1 10^3/uL (4.0-11.0)
[2024-05-06 18:23] LABS: Alanine Aminotransferase 42 U/L (14-59); Albumin Globulin Ratio 0.9; Albumin Level 3.5 g/dL (3.4-5.0); Alkaline Phosphatase 91 U/L (46-116); Amylase 54 U/L (25-115); Anion Gap 17.3; Aspartate Amino Transferase 34 U/L (15-37); BUN Creatinine Ratio 13.4; Bilirubin Total 0.6 mg/dL (0.2-1.0); Calcium 9.9 mg/dL (8.5-10.1); Carbon Dioxide 21.6 mmol/L (21.0-32.0); Chloride 100 mmol/L (98-107); Estimated GFR (African America >60 (>=60 mL/min/1.73m^2); Estimated GFR (Non-African Ame >60 (>=60 mL/min/1.73m^2); Globulin 4.1 g/dL; Glucose 129 mg/dL (74-106); Sodium 136 mmol/L (136-145); Total Protein 7.6 g/dL (6.4-8.2)
[2024-05-06 18:26] LABS: Potassium 2.9 mmol/L (3.5-5.1)
--- NOTE | 2024-05-06 19:02 | PM.OBLDTN ---
OB - Triage/Final Diagnosis Visit Information Date of evaluation: 05/06/24 Reason for evaluation: other Comments/Additional reasons for admission: COMPLAINS OF ABDOMINAL PAIN DUE TO HYPEREMESIS. APPARENTLY STOPPED ZOFRAN PUMP BECAUSE VOMITING CEASED. HOWEVER, HYPEREMESIS RETURNED. HAS GALL BLADDER AND APPENDIX. PHENERGAN CO 25 MG IMPROVED NAUSEA AND VOMITING. FINALLY ABLE TO START IV AND DRAW LABES. IS HYPOKALEMIC AT 2.9 THUS TECHNICALLY HAS HYPEREMESIS GRAVIDARUM. SUPPEMENTING WITH IV POTASSIUM AND WILL GIVE PO POTASSIUM IF CAN TOLERATE IT GIVEN NAUSEA.X Evaluation Cervical dilation (cm): 0 Cervical effacement (%): 0 Laboratory results: Laboratory Tests 05/06/24 05/06/24 17:00 17:40 WBC 21.1 H RBC 3.89 L Hgb 11.8 L Hct 34.2 L MCV 87.9 MCH 30.3 MCHC 34.5 RDW 14.4 Plt Count 269 MPV 11.2 Neut % (Auto) 86.8 H Lymph % (Auto) 8.2 L Bennett % (Auto) 2.9 Eos % (Auto) 0.2 L Baso % (Auto) 0.1 L Neut # (Auto) 18.3 H Lymph # (Auto) 1.7 Bennett # (Auto) 0.6 Eos # (Auto) 0.1 Baso # (Auto) 0.0 Abs Immat Gran (auto) 0.37 H Imm/Tot Granulo (auto) 1.8 H Sodium 136 Potassium 2.9 L* Chloride 100 Carbon Dioxide 21.6 Anion Gap 17.3 BUN 9.0 Creatinine 0.67 Est GFR ( Amer) >60 Est GFR (Non-Af Amer) >60 BUN/Creatinine Ratio 13.4 Glucose 129 H Calcium 9.9 Total Bilirubin 0.6 AST 34 ALT 42 Alkaline Phosphatase 91 Total Protein 7.6 Albumin 3.5 Globulin 4.1 Albumin/Globulin Ratio 0.9 Amylase 54 Lipase 15.0 L Urine Color Yellow Urine Clarity Clear Urine pH 6.0 Ur Specific [place] >=1.030 A Urine Protein 100 A Urine Glucose (UA) Negative Urine Ketones >=80 A Urine Occult Blood Negative Urine Nitrite Negative Urine Bilirubin Negative Urine Urobilinogen 1.0 Ur Leukocyte Esterase Negative Urine RBC 0-2 Urine WBC None seen Ur Squamous Epith Cells Few A Urine Crystals None seen Urine Bacteria Trace A Urine Casts None seen Urine Mucus Moderate A Ur Culture Indicated? 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 CURRENTLY COMFORTABLE AND SLEEPING.
--- NOTE | 2024-05-06 19:54 | PC.NURSE ---
1530- Pt arrives with support person to [facility] via wheelchair. Pt very tearful and breathing through pain. Pt states she has been vomiting and diarrhea since last night. Pt denies cxt's, vaginal bleeding, or leaking of fluid. Pt denies having a fever or being around people that are ill. pt states she had Norovirus a couple weeks ago. Pt states she has no complications with this ; but state she has been receinvg treatment for Hyperemesis Gravidarum . Pt debneua
--- NOTE | 2024-05-06 20:01 | PC.NURSE ---
1530- Pt arrives to [facility] with support person via wheelchair. Pt demeanor very tearful and crying in pain at this time. Pt taken to room 256. Pt refuses urine sample at this time. Pt complaining of nausea and vomiting and diarrhea that started last night. Pain 9/10. Pt denies vaginal bleeding, cxt's, or leaking or gush of fluid. Pt reports movement. Pt denies complications with this ; pt states she has struggled with hyperemesis this . Pt states she was supposed to receive a Zofran pump but was then denied Zofran pump d/t symptom relief. Pt placed on FHR/UC monitors. Audible movement. pt consent obtained with cervical exam. Pt cervix closed, thick. No vaginal discharge noted. Pt continues to writh in pain.
[2024-05-06 20:09] VITALS: PULSE 62
--- NOTE | 2024-05-06 20:22 | PC.NURSE ---
1745- Rn at bedside w/ Cesilia Chery RN. Pt awoken for IV start per Osiel; labs drawn with start per order. Pt contiuing to lay on right side d/t abdominal pain. RN offers pain medication at this time; pt refuses d/t unable to swallow oral med; solutions offered. Rn attempts to place pt back on FHR/UC monitors ; pt refuses at this time d/t abdominal pain. 1800- Report given to Stewart CROCKETT at this time. Care relinquished.
[2024-05-06 20:30] VITALS: PULSE 64
[2024-05-07] MEDS: ONDANSETRON PF 4 MG/2 ML VIAL IV (01:18)
[2024-05-07 02:00] VITALS: BP 112/68
[2024-05-07 03:21] VITALS: PULSE 72; O2SAT 96
[2024-05-07 03:30] VITALS: PULSE 57; O2SAT 96
[2024-05-07 03:40] VITALS: PULSE 92; O2SAT 97
[2024-05-07 06:30] VITALS: BP 113/56; PULSE 62
[2024-05-07 08:27] LABS: Alanine Aminotransferase 30 U/L (14-59); Albumin Globulin Ratio 0.9; Albumin Level 2.9 g/dL (3.4-5.0); Alkaline Phosphatase 70 U/L (46-116); Anion Gap 14.2; Aspartate Amino Transferase 24 U/L (15-37); BUN Creatinine Ratio 15.9; Bilirubin Total 0.7 mg/dL (0.2-1.0); Calcium 8.9 mg/dL (8.5-10.1); Carbon Dioxide 24.2 mmol/L (21.0-32.0); Chloride 103 mmol/L (98-107); Estimated GFR (African America >60 (>=60 mL/min/1.73m^2); Estimated GFR (Non-African Ame >60 (>=60 mL/min/1.73m^2); Globulin 3.1 g/dL; Glucose 88 mg/dL (74-106); Potassium 3.4 mmol/L (3.5-5.1); Sodium 138 mmol/L (136-145)
[2024-05-07 09:30] VITALS: BP 119/57; PULSE 72
== END 2024-05-07 10:57 | disposition home or self-care (01) ==
PROVIDERS: Admitting Provider Obstetrics & Gynecology; PCP Family Medicine; Visit Provider Obstetrics & Gynecology
DX: O21.0 Mild hyperemesis gravidarum (principal); Z3A.30 30 weeks gestation of pregnancy; O99.891 Other specified diseases and conditions complicating pregnancy; R10.9 Unspecified abdominal pain; O21.8 Other vomiting complicating pregnancy; O99.283 Endocrine, nutritional and metabolic diseases complicating pregnancy, third trimester; E87.6 Hypokalemia; E83.42 Hypomagnesemia; N32.89 Other specified disorders of bladder; N13.30 Unspecified hydronephrosis; O26.643 Intrahepatic cholestasis of pregnancy, third trimester; K83.1 Obstruction of bile duct; F17.290 Nicotine dependence, other tobacco product, uncomplicated; O99.333 Smoking (tobacco) complicating pregnancy, third trimester; O99.323 Drug use complicating pregnancy, third trimester; F12.188 Cannabis abuse with other cannabis-induced disorder; O26.893 Other specified pregnancy related conditions, third trimester
CPT/HCPCS: 36415; 59025; 76705; 76815; 76816; 80048; 80053; 81001; 82150; 83690; 83735; 85025; 96361; 96365; 96366; 96374; 96375; 96376; G0378; G0379; J2405; J3475

== ENCOUNTER 2024-05-07 20:53 | Observation (INO) | payer OTHER, SELFPAY ==
--- OUTSIDE RECORDS SUMMARY | 2024-05-07 20:56 | XMS_ITS | CCD ---
Author Organization [facility] Inform ion Partnership [facility] Care Team Providers Care Hospitality Associate Name Role Phone MD Brooke Rodriguez Primary Care Provider DO Telly Moreno [...] II, MD, PHD at 30-Apr-2024 10:38:[address] [facility] Normal Not Available ALL CBC WITH [...] US OB BPP WO NON-STRES Son 04-09-2024 [place] [address] Ultrasound Report Signed Patient: ELIZABETH PRESTON MR#: [id number] : 2000 Acct:[id number] Age/Sex: 24 / F ADM Date: Loc: [facility] 257-[address]: RENNY GIL APRN, CNM Ordering Physician: RENNY GIL APRN, CNM Date of Service: 04/09/24 Procedure(s): US OB BPP wo non-stress Accession Number(s): [id number] cc: RENNY GIL APRN, CNM; BROOKE RODRIGUEZ [place] [address] Patient Name: ELIZABETH PRESTON MRN: [facility]:[id number] date: 2000 Sex: F Assigned Patient Location: [facility] Current Patient Location: [facility] Accession/Order Number: [id number] Exam Date: 04/09/2024 12:41 Report Date: 04/09/2024 [...] Signed By: 04/09/24 1338 DD/ 35 TD/TT: Code Enforcement Supervisor: [facility] Radiology, Radiologist, MD - 04/09/2024 [place] [address] Ultrasound Report Signed Patient: ELIZABETH PRESTON MR#: [id number] : 2000 Acct:[id number] Age/Sex: 24 / F ADM Date: Loc: [facility] 257-[address]: RENNY GIL APRN, CNM Ordering Physician: RENNY GIL APRN, CNM Date of Service: 04/09/24 Procedure(s): US OB BPP wo non-stress Accession Number(s): [id number] cc: RENNY GIL APRN, CNM; BROOKE RODRIGUEZ [place] [address] Patient Name: ELIZABETH PRESTON MRN: [id number] date: 2000 Sex: F Assigned Patient Location: [facility] Current Patient Location: [facility] Accession/Order Number: [id number] Exam Date: 04/09/2024 12:41 Report Date: 04/09/2024 [...] M.D. Signed By: 04/09/241337 DD/ 35 TD/TT: Code Enforcement Supervisor: [facility] Radiology Study observation (narrative) [facility] US OB BPP WO NON-STRES SOrdered By: Radiologist Radiology on 04-09-2024 [facility] Work Phone: XR CHEST 2Von 04-09-[address] [address] XRay Report Signed Patient: ELIZABETH PRESTON MR#: [id number] : 2000 Acct:[id number] Age/Sex: 24 / F ADM Date: Loc: [facility] 257-[address]: RENNY GIL APRN, CNM Ordering Physician: RENNY GIL APRN, CNM Date of Service: 04/09/24 Procedure(s): XR chest 2V Accession Number(s): [id number] cc: RENNY GIL APRN, CNM; BROOKE RODRIGUEZ [place] [id number] Patient Name: ELIZABETH PRESTON MRN: [facility]:[id number] date: 2000 Sex: F Assigned Patient Location: [facility] Current Patient Location: [facility] Accession/Order Number: [id number] Exam Date: 04/09/2024 14:19 Report Date: 04/09/2024 [...] Signed By: 04/09/24 1508 DD/ 1505 TD/TT: Code Enforcement Supervisor: [facility] Radiology, Radiologist, MD - 04/09/2024 [place] [id number] XRay Report Signed Patient: ELIZABETH PRESTON MR#: [id number] : 2000 Acct:[id number] Age/Sex: 24 / F ADM Date: Loc: [facility] 257-[address]: RENNY GIL APRN, CNM Ordering Physician: RENNY GIL APRN, CNM Date of Service: 04/09/24 Procedure(s): XR chest 2V Accession Number(s): [id number] cc: RENNY GIL APRN, CNM; BROOKE RODRIGUEZ [place] [address] Patient Name: ELIZAEBTH PRESTON MRN: [id number] date: 2000 Sex: F Assigned Patient Location: [facility] Current Patient Location: [facility] Accession/Order Number: [id number] Exam Date: 04/09/2024 14:19 Report Date: 04/09/2024 [...] Signed By: 04/09/24 1508 DD/ 1505 TD/TT: Code Enforcement Supervisor: [facility] [employer] Radiology Study observation (narrative) [facility] [employer] XR CHEST 2VOrdered By: Radio logist Radiology on 04-09-2024 [employer] Work Phone: Automated erythrocytes count in urine sediment (number/area)Ordered By: Telly Moreno on 10-19-2021 RBC Auto (Urine sed) [#/Area] 0-1 [HPF] 0-4 [facility] Automated leukocytes count i n urine sediment (number/area)Ordered By: Telly Kwonzi on 10-19-2021 WBC Auto (Urine sed) [#/Area] 1-2 [HPF] 0-4 [facility] Bilirubin Test strip Ql (U)O rdered By: Telly Moreno on 10-19-2021 Bilirubin Ql (U) Negative Negative [facility] Color Auto (U)Ordered By: Armani Moreno on 10-19-2021 Color (U) Yellow Yellow [facility] Dipstick and Microscopicon 0 10-19-2021 Appearance (U) Clear Normal Clear [facility] Comment on above: Order Comment: Name Collection Type:: Clean-Voided Midstream Performed By: #### U HCG, ADDONUAPLUS #### [facility] [address] [place] [id number] [place] Bacteria,Urine None Seen Normal None Seen [facility] Comment on above: Order Comment: Name Collection Type:: Clean-Voided Midstream Performed By: #### U HCG, ADDONUAPLUS #### [facility] [address] [place], [place] [id number] [place] Bilirubin,Urine Negative Normal Negative [facility] Comment on above: Order Comment: Name Collection Type:: Clean-Voided Midstream Performed By: #### U HCG, ADDONUAPLUS #### [facility] [address] [place] [address] [place] Color (U) Yellow Normal Yellow [facility] Comment on above: Order Comment: Name Collection Type:: Clean-Voided Midstream Performed By: #### U HCG, ADDONUAPLUS #### [facility] [address] [place] [id number] [place] Glucose Ql (U) Normal Normal Normal [facility] Comment on above: Order Comment: Name Collection Type:: Clean-Voided Midstream Performed By: #### U HCG, ADDONUAPLUS #### [facility] [address] [place] [id number] [place] Hyaline Casts,Urine 0-8 Normal 0-8 [facility] Comment on above: Order Comment: Name Collection Type:: Clean-Voided Midstream Performed By: #### U HCG, ADDONUAPLUS #### [facility] [address] [place] [address] Ketones Ql (U) Trace High Negative [facility] Comment on above: Order Comment: Name Collection Type:: Clean-Voided Midstream Performed By: #### U HCG, ADDONUAPLUS #### [address] Leukocyte esterase Test strip Ql (U) Negative Normal Negative [facility] Comment on above: Order Comment: Name Collection Type:: Clean-Voided Midstream Performed By: #### U HCG, ADDONUAPLUS #### [address] Nitrite,Urine Negative Normal Negative [facility] Comment on above: Order Comment: Name Collection Type:: Clean-Voided Midstream Performed By: #### U HCG, ADDONUAPLUS #### [address] Occult Blood,Urine Trace High Negative [facility] Comment on above: Order Comment: Name Collection Type:: Clean-Voided Midstream Performed By: #### U HCG, ADDONUAPLUS #### [address] pH (U) 6.5 [pH] Normal 5.0-9.0 [facility] Comment on above: Order Comment: Name Collection Type:: Clean-Voided Midstream Performed By: #### U HCG, ADDONUAPLUS #### [facility] [address] [place] [address] [place] Protein,Urine Trace High Negative [facility] Comment on above: Order Comment: Name Collection Type:: Clean-Voided Midstream Performed By: #### U HCG, ADDONUAPLUS #### [place] [address] [place] RBC LM.HPF (Urine sed) [#/Area] 0 /[HPF] Normal 0-4 [facility] Comment on above: Order Comment: Name Collection Type:: Clean-Voided Midstream Performed By: #### U HCG, ADDONUAPLUS #### [facility] [address] [place] [address] Specificy [place],Urine 1.030 Normal 1.001-1.030 [facility] Comment on above: Order Comment: Name Collection Type:: Clean-Voided Midstream Performed By: #### U HCG, ADDONUAPLUS #### [address] Squamous Epithelial Cell,Urine 3-4 High 0-2 [facility] Comment on above: Order Comment: Name Collection Type:: Clean-Voided Midstream Performed By: #### U HCG, ADDONUAPLUS #### [facility] [address] [place] [address] Urobilinogen,Urine >=2 High Normal [facility] Comment on above: Order Comment: Name Collection Type:: Clean-Voided Midstream Performed By: #### U HCG, ADDONUAPLUS #### [address] WBC,Urine 1-2 Normal 0-4 [facility] Comment on above: Order Comment: Name Collection Type:: Clean-Voided Midstream Performed By: #### U HCG, ADDONUAPLUS #### [facility] [address] [place] [address] HCG ( test) IA.rapi d Ql (U)Ordered By: PROVIDER TEMP on 10-19-2021 HCG ( test) Ql (U) Negative [facility] HCG,Urineon 10-19-2021 Beta HCG ( test) Ql (U) Negative Normal [facility] Comment on above: Order Comment: Name Collection Type:: Clean-Voided Midstream Result Comment: PERF ORMED BY: [address] [place] [address] PATHOLOGIST SPOT CLEANER MELVA KUHN M.D. Performed By: #### U HCG, ADDONUAPLUS #### [facility] [address] [place] [address] Ketones Auto test strip (U) [Mass/Vol]Ordered By: Telly Moreno on 10-19-2021 Ketones (U) [Mass/Vol] Trace Negative [facility] - UrinalysisOrder ed By: Telly Moreno on 10-19-2021 Hyaline casts LM Ql (Urine sed) 0-8 [LPF] 0-8 [facility] Nitrite Test strip Ql (U)Ord ered By: Telly Moreno on 10-19-2021 Nitrite Ql (U) Negative Negative [facility] Protein Auto test strip (U) [Mass/Vol]Ordered By: Telly Moreno on 10-19-2021 Protein (U) [Mass/Vol] Trace mg/dL Negative [facility] Specific gravity Auto test s trip (U) [Rel density]Ordered By: Telly Moreno on 10-19-2021 Specific gravity (U) [Rel density] 1.030 1.001-1.030 [facility] Squamous epithelial cells de tection in urine sediment by light microscopyOrdered By: Telly Moreno on 10-19-2021 Epithelial cells.squamous LM Ql (Urine sed) 3-4 [HPF] 0-2 [facility] Urine bacteria detection by automated methodOrdered By: Telly Moreno on 10-19-2021 Bacteria Auto Ql (U) None seen None Seen [facility] Urine clarity by refractomet ry automatedOrdered By: Telly Moreno on 10-19-2021 Clarity Refractometry automated (U) Clear Clear [facility] Urine glucose measurement by automated test strip (mass/volume)Ordered By: Telly Moreno on 10-19-2021 Glucose Auto test strip (U) [Mass/Vol] Normal mg/dL Normal [facility] Urine hemoglobin detection b y automated test stripOrdered By: Telly Moreno on 10-19-2021 Hemoglobin Auto test strip Ql (U) Trace Negative [facility] Urine leukocyte esterase det ection by automated test stripOrdered By: Telly Moreno on 10-19-2021 Leukocyte esterase Auto test strip Ql (U) Negative Negative [facility] Urobilinogen Auto test strip (U) [Mass/Vol]Ordered By: Telly Moreno on 10-19-2021 Urobilinogen (U) [Mass/Vol] mg/dL Normal [facility] pH Auto test strip (U)Ordere d By: Telly Moreno on 10-19-2021 pH (U) 6.5 [pH] 5.0-9.0 [facility] Vital Signs Date Time Vital Sign Value Performing Clinician Facility 04-16-2024 09:08-0500 Body mass index (BMI) [Ratio] 17.85 kg/m2 Renny Floro CNM Work Phone: [facility] 04-16-2024 09:08-0500 Body weight 47.17 kg Renny Floro CNM Work Phone: [facility] 04-09-2024 10:35-0500 Body mass index (BMI) [Ratio] 18.71 kg/m2 Renny Floro CNM Work Phone: [facility] 04-09-2024 10:35-0500 Body weight 49.44 kg Renny Floro CNM Work Phone: [facility] 04-09-2024 10:35-0500 Diastolic blood pressure 78 mm[Hg] Renny Floro CNM Work Phone: [facility] 04-09-2024 10:35-0500 Systolic blood pressure 120 mm[Hg] Renny Floro CNM Work Phone: [facility] 02-27-2024 08:33-0500 Body mass index (BMI) [Ratio] 19.4 kg/m2 Renny Floro CNM Work Phone: [facility] 02-27-2024 08:33-0500 Body weight 51.26 kg Renny Floro CNM Work Phone: [facility] 02-27-2024 08:33-0500 Diastolic blood pressure 80 mm[Hg] Renny Floro CNM Work Phone: [facility] 02-27-2024 08:33-0500 Systolic blood pressure 118 mm[Hg] Renny Floro CNM Work Phone: [facility] 01-28-2024 09:26-0500 Body mass index (BMI) [Ratio] 17.68 kg/m2 Renny Floro CNM Work Phone: [facility] 01-28-2024 09:26-0500 Body weight 46.72 kg Renny WEAVERM Work Phone: [facility] 01-14-2024 08:56-0500 Body mass index (BMI) [Ratio] 15.45 kg/m2 Renny WEAVERM Work Phone: [facility] 01-14-2024 08:56-0500 Body weight 40.82 kg Renny WEAVERM Work Phone: [facility] 01-14-2024 08:56-0500 Diastolic blood pressure 70 mm[Hg] Renny WEAVERM Work Phone: [facility] 01-14-2024 08:56-0500 Systolic blood pressure 110 mm[Hg] Renny WEAVERM Work Phone: [facility] 01-07-2024 10:21-0500 Body mass index (BMI) [Ratio] 14.93 kg/m2 Renny Gil CNM Work Phone: [facility] 01-07-2024 10:21-0500 Body weight 39.46 kg Renny WEAVERM Work Phone: [facility] 10-19-2021 20:03-0400 Body temperature 99 [degF] MD Brooke Rodriguez Work Phone: [facility] 10-19-2021 20:03-0400 Diastolic blood pressure 56 mm[Hg] MD Brooke Rodriguez Work Phone: [facility] 10-19-2021 20:03-0400 Heart rate 70 /min MD Brooke Rodriguez Work Phone: [facility] 10-19-2021 20:03-0400 Respiratory rate 18 /min MD Brooke Rodriguez Work Phone: [facility] 10-19-2021 20:03-0400 SaO2% (BldA) [Mass fraction] 99 % MD Brooke Rodriguez Work Phone: [facility] 10-19-2021 20:03-0400 Systolic blood pressure 118 mm[Hg] MD Brooke Rodriguez Work Phone: [facility] 10-19-2021 17:13-0400 Body height 157.48 cm MD Brooke Rodriguez Work Phone: [facility] 10-19-2021 17:13-0400 Body weight 52.45 kg MD Brooke Rodriguez Work Phone: [facility] Encounters Encounter Date Encounter Type Care [...] patient visit MD Brooke Rodriguez Work Phone: [facility] Procedures Date Procedure Procedure Detail Performing [...] deficiency anemia Expected: 04/16/2024 (Approximate), Expires: 04/16/2025 [facility] Work Phone: Comment on above: Expected: 04/16/2024 (Approximate), Expires: 04/16/2025 Start: 04-16-2024 End: 04-16-2025 GLUCOSE, GESTATIONAL SCREEN (50G)-135 CUTOFF GLUCOSE, GESTATIONAL SCREEN (50G)-135 CUTOFF Lab Routine Screening for diabetes mellitus (DM) Expected: 04/16/2024 (Approximate), Expires: 04/16/2025 [facility] Healthcare Comment on above: Expected: 04/16/2024 (Approximate), Expires: 04/16/2025 Start: 04-16-2024 End: 04-16-2025 US for US OB follow up transabdominal approach Imaging Routine related condition in third trimester Expected: 04/16/2024, Expires: 04/16/2025 [facility] Healthcare Comment on above: Expected: 04/16/2024 , Expires: 04/16/2025 Start: 04-16-2024 End: 04-16-2024 Patient encounter procedure 04/16/2024 9:00 AM EST Routine [facility] [address] [place] [id number] Renny Gil CNM [address] [place], [place] [id number] [facility] Start: 03-26-2024 End: 03-26-2024 Patient encounter procedure 03/26/2024 3:45 PM EST Routine [facility] [address] [place] [address] Renny Gil, CNM [address] [place] [place] [address] Arrived [facility] Comment on above: Arrived Start: 03-26-2024 End: 03-26-2024 Patient encounter procedure 03/26/2024 8:30 AM EST Routine [facility] [address] [facility] [place] [address] Renny Gil, CNM [address] [place] [address] [facility] Start: 02-27-2024 End: 02-27-2024 Patient encounter procedure 02/27/2024 8:30 AM EST Routine [facility] [address] [facility] [place] [id number] Renny Gil, MEG [address] [place] [address] [facility] Start: 01-28-2024 End: 01-27-2025 US for US OB 14+ weeks anatomy scan Imaging Routine related condition in second trimester Expected: 01/28/2024, Expires: 01/27/2025 [facility] Work Phone: Comment on above: Expected: 01/28/2024 , Expires: 01/27/2025 Start: 01-28-2024 End: 01-28-2024 Patient encounter procedure 01/28/2024 8:30 AM EST Routine [facility] [address] [facility] [place] [address] Renny Gil, CNM [address] [place] [place] [address] [facility] Start: 01-15-2024 End: 01-15-2024 ambulatory 01/15/2024 1:00 PM EST Initial [facility] [address] [facility] [place] [address] Renny Gil, CNM [address] [place] [address] [facility] Start: 01-14-2024 End: 2025 ABO/Rh ABO/Rh Lab Routine examination or test, positive result Expected: 01/14/2024 (Approximate), Expires: 2025 [facility] Healthcare Comment on above: Expected: 01/14/2024 (Approximate), Expires: 2025 Start: 01-14-2024 End: 2025 Antibody screen Antibody screen Lab Routine examination or test, positive result Expected: 01/14/2024 (Approximate), Expires: 2025 [facility] Comment on above: Expected: 01/14/2024 (Approximate), Expires: 2025 Start: 01-14-2024 End: 2025 Bacteria identified in Urine by Culture Urine culture Microbiology Routine examination or test, positive result Expected: 01/14/2024 (Approximate), Expires: 2025 [facility] Healthcare Comment on above: Expected: 01/14/2024 (Approximate), Expires: 2025 Start: 01-14-2024 End: 2025 CBC panel - Blood by Automated count CBC Lab Routine examination or test, positive result Expected: 01/14/2024 (Approximate), Expires: 2025 [facility] Comment on above: Expected: 01/14/2024 (Approximate), Expires: 2025 Start: 01-14-2024 End: 2025 DRUG TOX MONITORIGN 6 W/ CONF,URINE DRUG TOX MONITORIGN 6 W/ CONF,URINE Lab Routine examination or test, positive result Expected: 01/14/2024 (Approximate), Expires: 2025 [facility] Healthcare Comment on above: Expected: 01/14/2024 (Approximate), Expires: 2025 Start: 01-14-2024 End: 2025 Hemoglobin A1c/Hemoglobin.total in Blood Hemoglobin A1c Lab Routine examination or test, positive result Expected: 01/14/2024 (Approximate), Expires: 2025 [facility] Comment on above: Expected: 01/14/2024 (Approximate), Expires: 2025 Start: 01-14-2024 End: 2025 Hepatitis B virus surface Ag [Presence] in Serum or Plasma by Immunoassay Hepatitis B surface antigen Lab Routine examination or test, positive result Expected: 01/14/2024 (Approximate), Expires: 2025 [facility] Work Phone: Comment on above: Expected: 01/14/2024 (Approximate), Expires: 2025 Start: 01-14-2024 End: 2025 Hepatitis C virus Ab [Presence] in Serum or Plasma by Immunoassay Hepatitis C antibody Lab Routine examination or test, positive result Expected: 01/14/2024 (Approximate), Expires: 2025 [facility] Comment on above: Expected: 01/14/2024 (Approximate), Expires: 2025 Start: 01-14-2024 End: 2025 HIV-1/HIV-2 antigen/antibody combination immunoassay HIV-1 and HIV-2 antibodies Lab Routine examination or test, positive result Expected: 01/14/2024 (Approximate), Expires: 2025 [facility] Comment on above: Expected: 01/14/2024 (Approximate), Expires: 2025 Start: 01-14-2024 End: 2025 Neisseria gonorrhoeae DNA [Presence] in Cervical mucus by DARYL with probe detection C. trachomatis / N. gonorrhoeae, DNA probe Pathology and Cytology Routine examination or test, positive result Expected: 01/14/2024 (Approximate), Expires: 2025 [facility] Comment on above: Expected: 01/14/2024 (Approximate), Expires: 2025 Start: 01-14-2024 End: 2025 Reagin Ab [Presence] in Serum by RPR RPR Lab Routine examination or test, positive result Expected: 01/14/2024 (Approximate), Expires: 2025 [facility] Comment on above: Expected: 01/14/2024 (Approximate), Expires: 2025 Start: 01-14-2024 End: 2025 Rubella antibody, IgG Rubella antibody, IgG Lab Routine examination or test, positive result Expected: 01/14/2024 (Approximate), Expires: 2025 [facility] Comment on above: Expected: 01/14/2024 (Approximate), Expires: 2025 Start: 01-14-2024 End: 2025 TSH W/REFLEX TO FT4 TSH W/REFLEX TO FT4 Lab Routine examination or test, positive result Expected: 01/14/2024 (Approximate), Expires: 2025 [facility] Comment on above: Expected: 01/14/2024 (Approximate), Expires: 2025 Start: 01-14-2024 End: 2025 URINALYSIS MICROSCOPIC URINALYSIS MICROSCOPIC Lab Routine examination or test, positive result Expected: 01/14/2024 (Approximate), Expires: 2025 [facility] Comment on above: Expected: 01/14/2024 (Approximate), Expires: 2025 Start: 10-27-2023 Influenza vaccination Influenza Vacc ine (#1) [facility] Patient referral [facility] Work Phone: Payers Date Payer Category Payer Medicaid [place] [id number] 2023 Medicaid [id number] 2022 Private Health [place] [address] [id number] 2022 Unknown [id number] 2002 Unknown [id number]. 1259 2002 Unknown [id number] [id number]. 1259 2002 Unknown [id number] [id number]. 1259 2002 Unknown [id number] 2.16.840.1.923145.3.579.2. 1259 2002 Unknown [id number] 2.16.840.1.729078.3.579.2. 1259 2002 Unknown [id number] 2.16.840.1.080205.3.579.2. 1259 2002 Unknown [id number] [id number]. 1259 2002 Unknown [id number]. 1259 Social History Date Type Detail Facility Start: 10-19-2021 End: 01-07-2024 Tobacco smoking status NHIS Never smoked tobacco (finding) [facility] Start: 2000 Sex Assigned At Female [...] a routine visit. documented in this encounter [facility] 04-09-2024 History of Presen t illness Narrative [...] She has been in and out of [facility] x3. She was told she [...] a routine visit. documented in this encounter [facility] 04-06-2024 Telephone encounter Note [facility] Triage called asking for any office notes , labs,etc. I sent her labs but didn't see any office notes or other info I could send , [facility] 04-06-2024 Miscellaneous Notes [facility] Triage called asking for any office notes , labs,etc. I sent her labs but didn't see any office notes or other info I could send , documented in this encounter [facility] 04-06-2024 Telephone encounter Note Patient calling this morning to schedule appt with Clare today. She has vomiting and pain. She is 26 weeks . She went to the [facility] ER last night and was diagnosed with flu and was told she would be better in 24 hours. She was pulling back into the same ER as we were talking- she is not feeling better. Please advise. Thank you. [facility] 04-06-2024 Miscellaneous Notes Patient calling this morning to schedule appt with Clare today. She has vomiting and pain. She is 26 weeks . She went to the [facility] ER last night and was diagnosed with flu and was told she would be better in 24 hours. She was pulling back into the same ER as we were talking- she is not feeling better. Please advise. Thank you. documented in this encounter [facility] 02-27-2024 History of Presen t illness Narrative [...] a routine visit. documented in this encounter [facility] 01-28-2024 History of Presen t illness Narrative [...] a routine visit. documented in this encounter [facility] 01-14-2024 History of Presen t illness Narrative [...] by: pt was admitted at the [facility] last week. She states she is [...] a routine visit. documented in this encounter [facility] 01-07-2024 History of Presen t illness Narrative [...] also given office phone number and [facility] number to call in case of an emergency or after hours needs. PVU and all questions answered. We did discuss place of delivery. Patient should plan to go to [facility] for all services unless an emergency and they need to go to the closest ER. We can make other arrangements possibly if patient would like to deliver at another facility but I did explain I am now at [place] 100% of the time and would like to do all deliveries there. documented in this encounter [facility] 12-31-2023 Telephone encounter Note Pt called to schedule an appt with Clare. She has had 1 us and 0 . Pt states she is 13 wks tomorrow. [facility] 12-31-2023 Miscellaneous Notes Pt called to schedule an appt with Clare. She has had 1 us and 0 . Pt states she is 13 wks tomorrow. documented in this encounter [facility] Evaluation note No assessment inform ation available [facility] Work Phone: Evaluation note [...] Brooke Rodriguez MD Primary Care Provider Active Hospitality Associate Relationship Specialty Start Date End Date Brooke Rodriguez MD [facility] [place] [id number] PCP - General Family Medicine 01/14/24 Hospitality Associate Relationship Specialty Start Date End Date Brooke Rodriguez MD [address] [address] PCP - General Family Medicine 01/14/24 Hospitality Associate Relationship Specialty Start Date End Date Brooke Rodriguez MD [address] [address] PCP - General Family Medicine 01/14/24 Hospitality Associate Relationship Specialty Start Date End Date Brooke Rodriguez MD [address] [address] PCP - General Family Medicine 01/14/24 Hospitality Associate Relationship Specialty Start Date End Date Brooke Rodriguez MD [address] [address] PCP - General Family Medicine 01/14/24 Hospitality Associate Relationship Specialty Start Date End Date Brooke Rodriguez MD [address] [address] PCP - General Family Medicine 01/14/24 Hospitality Associate Relationship Specialty Start Date End Date Brooke Rodriguez MD [address] [address] PCP - General Family Medicine 01/14/24 Hospitality Associate Relationship Specialty Start Date End Date Brooke Rodriguez MD [address] [place] [address] PCP - General Family Medicine 01/14/24 Hospitality Associate Relationship Specialty Start Date End Date Brooke Rodriguez MD [address] [place] [address] PCP - General Family Medicine 01/14/24 Goals (unrecognized section and content) Goals may be documented in a n alternate section INFORMATION SOURCE (unrecogn ized section and content) DATE CREATED AUTHOR 11/02/2021 [facility] DATE CREATED AUTHOR AUTHOR'Zelda AN 05/04/2024 [facility] dical Specialists [facility] FOR RECORDS PERTAINING TO PATIENTS WHO ARE [...] BE BASED ON THE PRIMARY CLINICAL RECORDS. [facility] [employer] [place] [facility]. provides no warranty or guarantee of the accuracy or completeness of information in this document.
[2024-05-07 21:04] VITALS: BP 131/65; PULSE 75
[2024-05-07 21:47] LABS: Basophils Percent Auto 0.1 % (0.2-2.0); Eosinophils Percent Auto 0.2 % (0.9-7.0); Hematocrit 31.7 % (36.0-48.0); Hemoglobin 10.7 g/dL (12.0-16.0); Immature Granulocytes Pct Auto 1.6 % (0.0-0.5); Lymphocytes Absolute Auto 2.1 10^3/uL (1.2-3.8); Lymphocytes Percent Auto 11.1 % (20.5-60.0); Mean Corpuscular HGB Conc 33.8 g/dL (29.9-35.2); Mean Corpuscular Volume 88.8 fL (81.0-99.0); Neutrophils Absolute Auto 15.6 10^3/uL (1.4-6.5); Platelet Count 216 10^3/uL (150-450); Red Blood Count 3.57 10^6/uL (4.20-5.40); Red Cell Distribution Width 14.4 % (11.0-15.0)
[2024-05-07] MEDS: PROMETHAZINE HCL 25 MG SUPP.RECT PR (22:17)
[2024-05-07] MEDS: LACTATED RINGER'S SOLUTION 1,000 ML 125 ML IV (22:18)
[2024-05-07 23:12] LABS: Alanine Aminotransferase 42 U/L (14-59); Albumin Globulin Ratio 0.9; Albumin Level 3.1 g/dL (3.4-5.0); Alkaline Phosphatase 77 U/L (46-116); Anion Gap 16.9; Aspartate Amino Transferase 37 U/L (15-37); BUN Creatinine Ratio 13.2; Calcium 9.2 mg/dL (8.5-10.1); Carbon Dioxide 23.9 mmol/L (21.0-32.0); Chloride 98 mmol/L (98-107); Estimated GFR (African America >60 (>=60 mL/min/1.73m^2); Estimated GFR (Non-African Ame >60 (>=60 mL/min/1.73m^2); Globulin 3.6 g/dL; Glucose 91 mg/dL (74-106); Sodium 136 mmol/L (136-145); Total Protein 6.7 g/dL (6.4-8.2)
[2024-05-07 23:17] LABS: Potassium 2.8 mmol/L (3.5-5.1)
[2024-05-07] MEDS: POTASSIUM CHLORIDE IN 0.9%NACL 1,000 ML 100 ML IV (23:47)
[2024-05-08 08:22] LABS: Alanine Aminotransferase 46 U/L (14-59); Albumin Globulin Ratio 0.9; Albumin Level 2.9 g/dL (3.4-5.0); Alkaline Phosphatase 72 U/L (46-116); Anion Gap 19.8; Aspartate Amino Transferase 39 U/L (15-37); BUN Creatinine Ratio 10.9; Calcium 8.9 mg/dL (8.5-10.1); Carbon Dioxide 21.4 mmol/L (21.0-32.0); Chloride 101 mmol/L (98-107); Estimated GFR (African America >60 (>=60 mL/min/1.73m^2); Estimated GFR (Non-African Ame >60 (>=60 mL/min/1.73m^2); Globulin 3.2 g/dL; Glucose 73 mg/dL (74-106); Potassium 3.2 mmol/L (3.5-5.1); Sodium 139 mmol/L (136-145); Total Protein 6.1 g/dL (6.4-8.2)
[2024-05-08 08:23] LABS: Magnesium 1.6 mg/dL (1.8-2.4)
[2024-05-08 09:26] VITALS: BP 148/70; PULSE 67
[2024-05-08 09:35] VITALS: TEMP 36.7
--- NOTE | 2024-05-08 10:39 | CM.NOTE ---
Rounds made with Dr. Santiago, discussed with pt lab results and need for IV magnesium and potassium. Dr. Santiago also discussed in depth with pt side effects of Marijuana use and hyperemesis. Pt verbalizes understanding. Dr. Santiago will recheck labs this afternoon.
--- NOTE | 2024-05-08 10:44 | P.CN_ITS ---
Consult Note: HPI Data of Consult Patient: new to practice Consult date: 05/08/24 Requesting Physician: Elham Cross MD Primary Care Provider: BROOKE SILVER Consult Narrative Reason for consult: Hypokalemia, emesis Narrative: 24 y/o female 31 weeks gestation admitted with hypokalemia. Frequent nausea and emesis throughout the . Frequent abdominal discomfort. Presented to labor and delivery with emesis and found potassium low at 2.9. Replaced IV and improved to 3.4 next am. Discharged home but returned later that evening and potassium down to 2.8. C/o continued emesis. Not able to eat or drink much due to symptoms. Admitted for IV replacement and potassium 3.2 this am. Reports history of THC use but reports stopped during . Boyfriend continues to smoke all day and smokes around her. Patient frequently wants to stay in hot shower because the steam helps with nausea. cc:: CC: Elham Cross MD Review of Systems ROS Constitutional Denies: fever, chills or fatigue Cardiovascular Denies: chest pain, palpitations or edema Respiratory Denies: shortness of breath, cough or wheezing Gastrointestinal Reports: abdominal pain, nausea and vomiting; Denies: diarrhea Genitourinary Denies: painful urination [facility] Medical History (Updated 05/08/24 @ 10:37 by Francisco Santiago MD) Cannabis use, unspecified with other cannabis-induced disorder ?F12.988 - Cannabis use, unspecified with other cannabis-induced disorder (ICD-10) Hyperemesis gravidarum ?O21.0 - Mild hyperemesis gravidarum (ICD-10) Abdominal pain ?R10.9 - Unspecified abdominal pain (ICD-10) Murmur, cardiac ?R01.1 - Cardiac murmur, unspecified (ICD-10) Constipation ?K59.00 - Constipation, unspecified (ICD-10) Social History (Updated 01/07/24 @ 18:00 by Patience Oliver) Within the past year, how often did you have a drink containing alcohol: never Within the past year, how often did you have six or more drinks on one occasion: never Score interpretation: A score less than 3 is consistent with normal alcohol consumption. Do you use any of these nicotine containing products: vaping products Non-prescribed substance use: denies use Previous occupational history: [employer] Highest level of school completed/degree received: high school graduate In a typical week, how many times do you talk on the telephone with family, friends, or neighbors: 3 or more times per week How often do you get together with friends or relatives: 3 or more times per week Little interest or pleasure in doing things: not at all Feeling down, depressed, or hopeless: not at all Feel stressed/tense/nervous/anxious/difficulty sleeping: not at all Do you think of yourself as: straight/heterosexual Gender Identity: female Meds Home Medications and Allergies Home Medications ?Medication ?Instructions ?Recorded ?Confirmed ?Type ferrous sulfate 325 mg (65 mg 325 mg PO BID #60 tabs 01/08/24 Rx iron) tablet,delayed release ondansetron 4 mg disintegrating 4 mg PO Q6H PRN nausea and 01/08/24 Rx tablet vomiting #60 tabs metoclopramide HCl 5 mg tablet 5 mg PO ACHS #60 tabs 01/09/24 Rx (Reglan) Allergies Allergy/AdvReac Type Severity Reaction Status Date / Time No Known Drug Allergies Allergy Verified 01/07/24 11:42 Exam Constitutional Vital Signs, click to edit/add: Last Vital Signs Temp 98.0 F 05/08/24 09:35 Pulse 67 05/08/24 09:26 Resp 16 05/08/24 09:35 BP 148/70 H 05/08/24 09:26 Documenting provider has reviewed patient's vital signs: yes Common normals: no apparent distress, oriented x3 and alert HENMT Common normals: normocephalic Eye Common normals: PERRL and EOMs intact bilaterally Respiratory Common normals: normal respiratory effort and clear to auscultation bilaterally Cardio Common normals: regular rate, regular rhythm, no gallops, no murmurs and no rub GI Common normals: Normal to inspection, nondistended, normoactive bowel sounds present and non-tender Extremity Common normals: no pedal edema Results Labs Labs: Short CBC 05/07/24 Range/Units 21:30 WBC 19.0 H (4.0-11.0) 10^3/uL Hgb 10.7 L (12.0-16.0) g/dL Hct 31.7 L (36.0-48.0) % Plt Count 216 (150-450) 10^3/uL BMP 05/07/24 05/08/24 21:30 07:52 Sodium 136 139 Potassium 2.8 L* 3.2 L Chloride 98 101 Carbon Dioxide 23.9 21.4 BUN 7.0 5.0 L Creatinine 0.53 L 0.46 L Glucose 91 73 L Calcium 9.2 8.9 Liver Function 05/07/24 05/08/24 Range/Units 21:30 07:52 Total Bilirubin 1.0 1.0 (0.2-1.0) mg/dL AST 37 39 H (15-37) U/L ALT 42 46 (14-59) U/L Alkaline Phosphatase 77 72 (46-116) U/L Albumin 3.1 L 2.9 L (3.4-5.0) g/dL Assessment and Plan Assessment and Plan (1) Cannabis hyperemesis syndrome concurrent with and due to cannabis abuse: (2) Cyclic vomiting syndrome: (3) Hypokalemia: (4) Hypomagnesemia: Plan Continued emesis and symptoms consistent with cannabis hyperemesis syndrome. Denies current smoking but exposed to second hand THC. Need to avoid THC due to continued symptoms. Potassium replaced and magnesium low. Given IV magnesium sulfate and repeat labs in afternoon. Gradually advance diet. Likely will be stable for discharge later today.
[2024-05-08] MEDS: MAGNESIUM SULFATE IN WATER 2 GM/50 ML PREMIX IV (11:30)
[2024-05-08] MEDS: ONDANSETRON PF 4 MG/2 ML VIAL IV ×2 (14:40→20:05)
[2024-05-08 14:46] LABS: Anion Gap 15.2; BUN Creatinine Ratio 9.7; Calcium 8.9 mg/dL (8.5-10.1); Carbon Dioxide 24.3 mmol/L (21.0-32.0); Chloride 100 mmol/L (98-107); Estimated GFR (African America >60 (>=60 mL/min/1.73m^2); Estimated GFR (Non-African Ame >60 (>=60 mL/min/1.73m^2); Glucose 76 mg/dL (74-106); Magnesium 2.4 mg/dL (1.8-2.4); Potassium 3.5 mmol/L (3.5-5.1); Sodium 136 mmol/L (136-145)
--- NOTE | 2024-05-08 15:29 | PC.NURSE ---
1400 iv to saline lock, zofran given, labs drawn and discussed plan of care, up to shower per pt request-2 small emesis after orange juice
--- NOTE | 2024-05-08 15:34 | PC.NURSE ---
[id number] Dr Santiago called with lab results and reviewed plan of care from Dr Wilkins's orders-no new orders received
--- NOTE | 2024-05-08 15:37 | PC.NURSE ---
1300 Clare Gil's office called regarding zofran pump set up. Monica from office had called our physician office secretary on [employer] and stated company was aware of order and will be phoning pt directly to set up pump-this RN calls office to clarify but no answer, VM left
[2024-05-08 16:56] VITALS: BP 116/68; PULSE 61; TEMP 37.3
--- NOTE | 2024-05-08 17:26 | PM.OBPN ---
OB - PN: Subj Subjective Narrative: 24 yo at 31 2/7wks presents with nausea and vomiting, this has been ongoing throught the whole , pt complains of slight abdominal pain, pt states sore from throwing up so much, denies rlq tenderness, pt tolerating diet, denies ctxns, lof, vb, denies urinary symptoms, positive fm Exam Constitutional Vital Signs, click to edit/add: Last Vital Signs Temp 99.1 F 05/08/24 16:56 Pulse 61 05/08/24 16:56 Resp 16 05/08/24 16:56 BP 116/68 05/08/24 16:56 Documenting provider has reviewed patient's vital signs: yes Common normals: no apparent distress Respiratory Common normals: normal respiratory effort and clear to auscultation bilaterally Cardio Common normals: regular rate and regular rhythm GI Common normals: Normal to inspection, nondistended, normoactive bowel sounds present and non-tender Auscultation: normoactive bowel sounds Palpation: soft and guarding (no guarding or tenderness) Percussion: normal to percussion Extremity Common normals: normal to inspection and no calf tenderness Results Labs Labs: Short CBC 05/07/24 Range/Units 21:30 WBC 19.0 H (4.0-11.0) 10^3/uL Hgb 10.7 L (12.0-16.0) g/dL Hct 31.7 L (36.0-48.0) % Plt Count 216 (150-450) 10^3/uL BMP 05/07/24 05/08/24 05/08/24 21:30 07:52 14:23 Sodium 136 139 136 Potassium 2.8 L* 3.2 L 3.5 Chloride 98 101 100 Carbon Dioxide 23.9 21.4 24.3 BUN 7.0 5.0 L 6.0 L Creatinine 0.53 L 0.46 L 0.62 Glucose 91 73 L 76 Calcium 9.2 8.9 8.9 Liver Function 05/07/24 05/08/24 Range/Units 21:30 07:52 Total Bilirubin 1.0 1.0 (0.2-1.0) mg/dL AST 37 39 H (15-37) U/L ALT 42 46 (14-59) U/L Alkaline Phosphatase 77 72 (46-116) U/L Albumin 3.1 L 2.9 L (3.4-5.0) g/dL OB - PN: A/P Assessment and Plan (1) Cannabis hyperemesis syndrome concurrent with and due to cannabis abuse: (2) Cyclic vomiting syndrome: (3) Hypokalemia: (4) Hypomagnesemia: Plan deferred replacement to hospitalist, will observe overnight repeat labs in am, zofran pump is scheduled to have obtained Time Spent with Patient Time: Total time spent is greater than 50% in coordination of care (as documented) at patient's floor/unit and/or counseling patient: Total time spent with greater than 50% in coordination of care (as documented) at patient's floor/unit and/or counseling patient: less than 15 minutes
--- NOTE | 2024-05-08 20:38 | PC.NURSE ---
2020-Patient vomiting moderate amount of emesis. Clear/yellow liquid. IV Zofran given per patient order. Patient requests to take a warm shower. Bedding changed, IV site covered and patient up to shower.
[2024-05-08] MEDS: LACTATED RINGER'S SOLUTION 1,000 ML 125 ML IV (22:31)
--- NOTE | 2024-05-08 23:35 | PC.NURSE ---
[id number]- Patient moaning with abdominal pain. Patient requests to take another shower. Significant other in room helping patient. IV site covered with bag and encouraged patient to drink fluids while in shower.
[2024-05-09] MEDS: ONDANSETRON PF 4 MG/2 ML VIAL IV ×2 (02:09→08:13)
[2024-05-09 04:08] VITALS: BP 142/80; PULSE 63
[2024-05-09 07:37] LABS: Alanine Aminotransferase 64 U/L (14-59); Albumin Globulin Ratio 0.9; Albumin Level 2.7 g/dL (3.4-5.0); Alkaline Phosphatase 66 U/L (46-116); Anion Gap 17.2; Aspartate Amino Transferase 56 U/L (15-37); BUN Creatinine Ratio 7.3; Bilirubin Total 0.7 mg/dL (0.2-1.0); Calcium 8.7 mg/dL (8.5-10.1); Chloride 100 mmol/L (98-107); Estimated GFR (African America >60 (>=60 mL/min/1.73m^2); Estimated GFR (Non-African Ame >60 (>=60 mL/min/1.73m^2); Glucose 61 mg/dL (74-106); Magnesium 1.8 mg/dL (1.8-2.4); Potassium 3.2 mmol/L (3.5-5.1); Sodium 137 mmol/L (136-145); Total Protein 5.7 g/dL (6.4-8.2)
[2024-05-09 09:29] VITALS: BP 121/55; PULSE 56
[2024-05-09] MEDS: LACTATED RINGER'S SOLUTION 1,000 ML 125 ML IV (09:30)
--- NOTE | 2024-05-09 09:45 | PM.OBLDTN ---
OB - Triage/Final Diagnosis Visit Information Date of evaluation: 05/09/24 Reason for evaluation: other Comments/Additional reasons for admission: 31+ week IUP with hyperemesis of . Patient has had hyperemesis throughout entire treated with antiemetics. This admission noted hypokalemia with blood work. Patient admitted for IV hydration. To supplement Potassium. Hospitalist Consult for additional management of patient's electrolytes. Evaluation Laboratory results: Laboratory Tests 05/07/24 05/08/24 05/08/24 21:30 07:52 14:23 WBC 19.0 H RBC 3.57 L Hgb 10.7 L Hct 31.7 L MCV 88.8 MCH 30.0 MCHC 33.8 RDW 14.4 Plt Count 216 MPV 11.0 Neut % (Auto) 82.0 H Lymph % (Auto) 11.1 L Hardee % (Auto) 5.0 Eos % (Auto) 0.2 L Baso % (Auto) 0.1 L Neut # (Auto) 15.6 H Lymph # (Auto) 2.1 Hardee # (Auto) 1.0 H Eos # (Auto) 0.0 Baso # (Auto) 0.0 Abs Immat Gran (auto) 0.30 H Imm/Tot Granulo (auto) 1.6 H Sodium 136 139 136 Potassium 2.8 L* 3.2 L 3.5 Chloride 98 101 100 Carbon Dioxide 23.9 21.4 24.3 Anion Gap 16.9 19.8 15.2 BUN 7.0 5.0 L 6.0 L Creatinine 0.53 L 0.46 L 0.62 Est GFR ( Amer) >60 >60 >60 Est GFR (Non-Af Amer) >60 >60 >60 BUN/Creatinine Ratio 13.2 10.9 9.7 Glucose 91 73 L 76 Calcium 9.2 8.9 8.9 Magnesium 1.6 L 2.4 Total Bilirubin 1.0 1.0 AST 37 39 H ALT 42 46 Alkaline Phosphatase 77 72 Total Protein 6.7 6.1 L Albumin 3.1 L 2.9 L Globulin 3.6 3.2 Albumin/Globulin Ratio 0.9 0.9 05/09/24 07:18 WBC RBC Hgb Hct MCV MCH MCHC RDW Plt Count MPV Neut % (Auto) Lymph % (Auto) Hardee % (Auto) Eos % (Auto) Baso % (Auto) Neut # (Auto) Lymph # (Auto) Hardee # (Auto) Eos # (Auto) Baso # (Auto) Abs Immat Gran (auto) Imm/Tot Granulo (auto) Sodium 137 Potassium 3.2 L Chloride 100 Carbon Dioxide 23.0 Anion Gap 17.2 BUN 4.0 L Creatinine 0.55 Est GFR ( Amer) >60 Est GFR (Non-Af Amer) >60 BUN/Creatinine Ratio 7.3 Glucose 61 L Calcium 8.7 Magnesium 1.8 Total Bilirubin 0.7 AST 56 H ALT 64 H Alkaline Phosphatase 66 Total Protein 5.7 L Albumin 2.7 L Globulin 3.0 Albumin/Globulin Ratio 0.9 Vital signs: Vital Signs - 24 hr 05/08/24 16:56 05/08/24 16:56 05/09/24 04:08 Temperature 99.1 F Pulse Rate 61 63 Respiratory Rate 16 Blood Pressure 116/68 142/80 H 05/09/24 09:29 Temperature Pulse Rate 56 L Respiratory Rate Blood Pressure 121/55 heart rate baseline: 140 ad terminal makeup operator variability: Moderate (6-25 bpm) monitor accelerations: Present monitor decelerations: None Final Diagnosis (1) Cannabis hyperemesis syndrome concurrent with and due to cannabis abuse: Status: Acute (2) Cyclic vomiting syndrome: Status: Acute Problem details: planned zofran pump if feasible (3) Hypokalemia: Status: Acute Problem details: appreciate hospitalist consult (4) Hypomagnesemia: Status: Acute Problem details: appreciate hospitalist consult (5) Bladder wall thickening: Status: Acute Problem details: discussed findings with patient and FOB, AST and ALT mildly elevated today. Awaiting formal US reading - noted Cholestasis and gall bladder wall thickening with sludge, no dilation of ducts, mild right hydronephrosis - informal read. Stressed IV hydration and dietary restrictions..
[2024-05-09 09:46] VITALS: TEMP 36.5
--- NOTE | 2024-05-09 11:56 | P.CN_ITS ---
Consult Note: HPI Data of Consult Requesting Physician: Elham Cross MD Primary Care Provider: BROOKE SILVER Consult Narrative Narrative: Patient reports improvement in her symptoms since yesterday. There was a RUQ ultrasound performed that showed some Gallbladder wall thickening and some sludge. No evidence of Acute cholecystitis. He did have slight elevation in her AST and ALT but this can also be from vomiting. Her potassium was 3.2, mag was 1.8. She is eating alittle. No episodes of vomiting this morning. I discussed more testing of the Gallbladder with HIDA scan after . She is afebrile. Lipase and amylase normal. She does not require Emergent surgery at this time. She will be discharged home today with oral Klor Con 10MEQ BID x 7 days. She has follow up with Clare her nursing wrapping machine helper on 05/14/24. I would suggest recheck complete metabolic panel along with magnesium level. She may return to the ER with any worsening signs or symptoms. She also needed a refill on her zofran. Of which i also sent in short term supply. cc:: CC: Elham Cross MD [facility] Medical History (Updated 05/09/24 @ 09:53 by Trina He) Cannabis use, unspecified with other cannabis-induced disorder ?F12.988 - Cannabis use, unspecified with other cannabis-induced disorder (ICD-10) Hyperemesis gravidarum ?O21.0 - Mild hyperemesis gravidarum (ICD-10) Abdominal pain ?R10.9 - Unspecified abdominal pain (ICD-10) Murmur, cardiac ?R01.1 - Cardiac murmur, unspecified (ICD-10) Constipation ?K59.00 - Constipation, unspecified (ICD-10) Social History (Updated 01/07/24 @ 18:00 by Patience Oliver) Within the past year, how often did you have a drink containing alcohol: never Within the past year, how often did you have six or more drinks on one occasion: never Score interpretation: A score less than 3 is consistent with normal alcohol consumption. 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 Highest level of school completed/degree received: high school graduate In a typical week, how many times do you talk on the telephone with family, friends, or neighbors: 3 or more times per week How often do you get together with friends or relatives: 3 or more times per week Little interest or pleasure in doing things: not at all Feeling down, depressed, or hopeless: not at all Feel stressed/tense/nervous/anxious/difficulty sleeping: not at all Do you think of yourself as: straight/heterosexual Gender Identity: female Meds Home Medications and Allergies Home Medications ?Medication ?Instructions ?Recorded ?Confirmed ?Type ferrous sulfate 325 mg (65 mg 325 mg PO BID #60 tabs 01/08/24 Rx iron) tablet,delayed release metoclopramide HCl 5 mg tablet 5 mg PO ACHS #60 tabs 01/09/24 Rx (Reglan) ondansetron 4 mg disintegrating 4 mg PO Q6H PRN nausea and 05/09/24 Rx tablet vomiting #20 tabs potassium chloride 10 mEq 10 meq PO BID 7 days #14 tabs 05/09/24 Rx tablet,extended release (Klor-Con) Allergies Allergy/AdvReac Type Severity Reaction Status Date / Time No Known Drug Allergies Allergy Verified 01/07/24 11:42 Exam Narrative Exam Narrative: General: Patient is alert, and oriented to person, place and time with normal affect, proper hygiene Skin: no visible rashes, or ulcers Head: atraumatic, acephalic Heart: Normal rate and rhythm, no murmurs/rubs/gallops Lungs: no audible wheezes, crackles and normal breath sounds all lung pruitt Abdomen: No pain with palpation of the RUQ, guarding or rigidity Musculoskeletal: no swelling bilateral lower extremities Neuro: CN II-X grossly intact Constitutional Vital Signs, click to edit/add: Last Vital Signs Temp 97.7 F 05/09/24 09:46 Pulse 56 L 05/09/24 09:29 Resp 16 05/08/24 16:56 BP 121/55 05/09/24 09:29 Results Labs Labs: BMP 05/08/24 05/09/24 14:23 07:18 Sodium 136 137 Potassium 3.5 3.2 L Chloride 100 100 Carbon Dioxide 24.3 23.0 BUN 6.0 L 4.0 L Creatinine 0.62 0.55 Glucose 76 61 L Calcium 8.9 8.7 Liver Function 05/09/24 Range/Units 07:18 Total Bilirubin 0.7 (0.2-1.0) mg/dL AST 56 H (15-37) U/L ALT 64 H (14-59) U/L Alkaline Phosphatase 66 (46-116) U/L Albumin 2.7 L (3.4-5.0) g/dL Assessment and Plan Assessment and Plan (1) Cannabis hyperemesis syndrome concurrent with and due to cannabis abuse: (2) Cyclic vomiting syndrome: (3) Hypokalemia: (4) Hypomagnesemia: (5) Bladder wall thickening: Plan Discharge home today per primary ob team , oral potassium and zofran. Keep follow up appointment next week for recheck on labs. Consider HIDA scan after if symptoms persist.
== END 2024-05-09 12:36 | disposition home or self-care (01) ==
PROVIDERS: Family Medicine; Obstetrics & Gynecology; Admitting Provider Obstetrics & Gynecology; PCP Family Medicine; Visit Provider Obstetrics & Gynecology
DX: O99.283 Endocrine, nutritional and metabolic diseases complicating pregnancy, third trimester (principal); E87.6 Hypokalemia; E83.42 Hypomagnesemia; O21.8 Other vomiting complicating pregnancy; Z3A.31 31 weeks gestation of pregnancy; N32.89 Other specified disorders of bladder; O99.891 Other specified diseases and conditions complicating pregnancy; N13.30 Unspecified hydronephrosis; O26.643 Intrahepatic cholestasis of pregnancy, third trimester; K83.1 Obstruction of bile duct; O99.333 Smoking (tobacco) complicating pregnancy, third trimester; F17.290 Nicotine dependence, other tobacco product, uncomplicated; R10.9 Unspecified abdominal pain; O99.323 Drug use complicating pregnancy, third trimester; F12.188 Cannabis abuse with other cannabis-induced disorder; O26.893 Other specified pregnancy related conditions, third trimester
CPT/HCPCS: 36415; 76705; 80048; 80053; 83735; 85025; 96361; 96365; 96366; 96375; 96376; G0378; G0379; J2405; J3475

== ENCOUNTER 2024-06-11 17:53 | Observation (INO) | payer OTHER, SELFPAY ==
--- OUTSIDE RECORDS SUMMARY | 2024-06-11 17:59 | XMS_ITS | CCD ---
Author Organization [facility] Care Team Providers Care Flatwork Finisher Hand Name Role Phone MD Brooke Rodriguez Primary Care Provider [phone] DO Telly Moreno Emergency Provider [phone] Unavailable Primary Care Provider Naldo Rodriguez MD, Brooke Gage Primary Care Provider FLOROCLARERENNY Soledad Attending Unavailable FLORO, RENNY L Attending Unavailable FLORO, RENNY L Attending Unavailable FLORO, RENNY L Attending Unavailable FLORO, RENNY L Attending Unavailable FLORO, RENNY L Attending Unavailable FLORO, RENNY L Attending Unavailable FLORO, RENNY L Referring Unavailable FLORO, RENNY L Attending Unavailable FLORO, RENNY L Attending Unavailable FLORO, RENNY L Referring Unavailable Brooke Rodriguez [facility] Primary Care Provider RENNY GIL Referring Unavailable BROOKE RODRIGUEZ MD, [facility] Primary Care HASEEB Abel Attending Unavailable RENNY GIL Referring Unavailable BROOKE RODRIGUEZ MD, [facility] Primary Care RENNY Benoit Referring Unavailable BROOKE RODRIGUEZ MD, [facility] Primary Care Andrea brice Medications Current Medications Medication Drug Class(es) Dates Sig (Normalized) Sig (Original) docusate sodium 100 mg oral capsule (20 sources) Start: 12-13-2023 docusate sodium (Colace) 100 [...] meals. Active metoclopramide 10 mg oral tablet (20 sources) Dopamine-2 Receptor Antagonist Start: 12-20-2023 metoclopramide [...] 8 (eight) hours if needed 12/20/2023 Active take 1 tablet by leonie th every eight hours as needed for nausea and vomiting ondansetron ODT (ZOFRAN ODT) 4 mg disintegrating tablet Dissolve 1 tablet (4 mg total) on tongue every 8 (eight) hours as needed for nausea or vomiting. Active PNV cmb#95-ferrous fumarate-FA () 28 mg iron- 800 mcg tablet (4 sources) PNV cmb#95-madai us fumarate-FA () 28 mg iron- 800 mcg tablet Take by mouth. Active MV & Min w/FA-DHA ( Gummies) 0.18-25 MG chewable tablet (4 sources) Start: 01-14-2024 End: 02-13-2024 MV & Min w/FA-DHA ( Gummies) 0.18-25 MG chewable tablet Indications: examination or test, positive result Chew 1 tablet Daily 30 tablet 11 01/14/2024 02/13/2024 Active Vit-Fe Fumarate-FA ( Vitamins) 28-0.8 MG tablet (20 sources) Start: 01-28-2024 End: 01-27-2025 [...] second trimester] 01-28-2024 Chronic Other complications of (9 sources) Hyperemesis gravidarum; Translations: [Mild hyperemesis gravidarum] Onset: 06-09-2024 01-14-2024 Episodic Other complications of (4 sources) Finding related to ; Translations: [ related conditions, unspecified, second trimester] 01-28-2024 Episodic Other complications of (8 sources) Vomiting of ; Translations: [Vomiting of , unspecified] 02-27-2024 Episodic Other complications of (12 sources) Poor growth affecting management; Translations: [Maternal care for other known or suspected poor growth, third trimester, not applicable or unspecified] Onset: 06-09-2024 06-03-2024 Episodic Other complications of (5 sources) growth restriction; Translations: [Maternal care for other known or suspected poor growth, unspecified trimester, not applicable or unspecified] Onset: 06-09-2024 06-10-2024 Episodic Other complications of (1 source) Maternal care for other known or suspected poor growth, third trimester, not applicable or unspecified; Translations: [Maternal care for other known or suspected poor growth, third trimester, not applicable or unspecified] Onset: 06-09-2024 Episodic Other and delivery including normal (20 sources) Second trimester ; Translations: [Encounter for supervision of normal first , second trimester] 01-14-2024 Episodic Other screening for suspected conditions (not mental disorders or infectious disease) (7 sources) Patient encounter status; Translations: [Encounter for screening for diabetes mellitus] Onset: 06-09-2024 04-16-2024 Episodic Residual codes; unclassified (2 sources) Gestation period, 16 weeks; Translations: [16 weeks gestation of ] 01-28-2024 Episodic Unclassified (1 source) Non-stress Test Onset: 06-09-2024 Results Test Name Value Interpretation Reference Range Facility nonstress test - Mater nal Medicineon 06-10-2024 Patient Name: Elizabeth Preston Patient : 2000 NST Objective Findings: Variability: Moderate Decelerations: None Accelerations: Yes Acoustic Stimulator: No Baseline: 120 BPM Uterine Irritability: No Contractions: Not present Comments: FKC reviewed and handout given. Labor Precautions reviewed. Patient verbalized understanding. NST Interpretation: Nonstress Test Interpretation: Reactive (Haseeb Fraga MD) NST performed by: Rossy chua RN 06/09/2024 ASOBGYN nonstress test - Mater nal MedicineOrdered By: Nuha Lenz on 06-10-2024 [facility] US OB FOLLOW UP TRANSABDOMIN AL APPROACHon 06-03-2024 US OB FOLLOW UP TRANSABDOMINAL APPROACH TITLE OF EXAM: OB Ultrasound: REASON FOR EXAM: Small for dates. COMPARISON: 04/29/2024 TECHNIQUE: Grayscale and M-mode Doppler imaging is performed. FINDINGS: Measurements: heart rate: 138 bpm CONNOR: 12.8 cm (7.9-24.9) BPD: 8.2 cm HC: 30.8 cm AC: 27.7 cm FL: 6.7 cm GA for sonogram: 33.4 wk (30.9-35.8) Cervix length: 4.0 cm STAN: 07/08/2024 Weight Estimate: Weight: 2085 gm 4 lbs, 9 oz (1892-2972 gm) Hadlock Normal: 2595 gm (5699-9835 gm) Hadlock Wt%: 1% for 35.0 wks (GA selected) <3% for 35.0 wks (LMP) LMP: 10/01/24 Age by LMP: 35 w 0 d Age Prior US: 30 w 0 d Age US Today: 33 w 4 d STAN by LMP: 07/08/24 STAN Prior US: 07/08/24 STAN US Today: 07/18/24 Gestation: Single Position: Cephalic Placenta Location: Anterior Placental Grade: 1 Heart Rate: 138 BPM Somatic Movement: Yes Cervical Length: 3.96 cm IMPRESSION: 1. Single live intrauterine gestation in cephalic position estimated at 33.4 weeks. This is 1.6 weeks behind the provided clinical dates. 2. weight is estimated at less than 10% for provided clinical dates. IUGR is a consideration. This finding was conveyed to the referring provider by the performing technologist at the time of the exam. Chidi Bonilla from forwarded message to provider. Dictated and transcribed 06/03/24/dpd This report has been electronically signed and approved by the interpreting radiologist. Normal Not Available US OB FOLLOW UP TRANSABDOMIN AL APPROACHon [...] II, MD, PHD at 30-Apr-2024 10:38:42 AM [facility] Normal Not Available ALL CBC WITH [...] US OB BPP WO NON-STRES Son 04-09-2024 [place] [address] Ultrasound Report Signed Patient: ELIZABETH PRESTON MR#: [id number] : 2000 Acct:[id number] Age/Sex: 24 / F ADM Date: Loc: [facility] 257-[address]: RENNY GIL APRN, CNM Ordering Physician: RENNY GIL APRN, CNM Date of Service: 04/09/24 Procedure(s): US OB BPP wo non-stress Accession Number(s): [id number] cc: RENNY GIL APRN, CNM; BROOKE RODRIGUEZ [place] [id number] Patient Name: ELIZABETH PRESTON MRN: [facility]:[id number] date: 2000 Sex: F Assigned Patient Location: [facility] Current Patient Location: [facility] Accession/Order Number: [id number] Exam Date: 04/09/2024 12:41 Report Date: 04/09/2024 [...] M.D. Signed By: 04/09/241337 DD/ 35 TD/TT: Is/It Project Manager: [facility] Radiology, Radiologist, MD - 04/09/2024 [place] [address] Ultrasound Report Signed Patient: ELIZABETH PRESTON MR#: [id number] : 2000 Acct:[id number] Age/Sex: 24 / F ADM Date: Loc: [facility] 257-[address]: RENNY GIL APRN, CNM Ordering Physician: RENNY GIL APRN, CNM Date of Service: 04/09/24 Procedure(s): US OB BPP wo non-stress Accession Number(s): [id number] cc: RENNY GIL APRN, CNM; BROOKE RODRIGUEZ [place] [address] Patient Name: ELIZABETH PRESTON MRN: [id number] date: 2000 Sex: F Assigned Patient Location: [facility] Current Patient Location: [facility] Accession/Order Number: [id number] Exam Date: 04/09/2024 12:41 Report Date: 04/09/2024 [...] M.D. Signed By: 04/09/241337 DD/ 35 TD/TT: Is/It Project Manager: [facility] Radiology Study observation (narrative) [facility] US OB BPP WO NON-STRES SOrdered By: Radiologist Radiology on 04-09-2024 [employer] Work Phone: XR CHEST 2Von 04-09-[address] [address] XRay Report Signed Patient: ELIZABETH PRESTON MR#: [id number] : 2000 Acct:[id number] Age/Sex: 24 / F ADM Date: Loc: [facility] 257-[address]: RENNY GIL APRN, CNM Ordering Physician: RENNY GIL APRN, CNM Date of Service: 04/09/24 Procedure(s): XR chest 2V Accession Number(s): [id number] cc: RENNY GIL APRN, CNM; BROOKE RODRIGUEZ [place] [id number] Patient Name: ELIZABETH PRESTON MRN: [facility]:[id number] date: 2000 Sex: F Assigned Patient Location: [facility] Current Patient Location: [facility] Accession/Order Number: [id number] Exam Date: 04/09/2024 14:19 Report Date: 04/09/2024 [...] Pack M.D. Signed By: 04/09/24 1508 DD/ 04 TD/TT: Is/It Project Manager: [facility] Radiology, Radiologist, MD - 04/09/2024 [place] [id number] XRay Report Signed Patient: ELIZABETH PRESTON MR#: [id number] : 2000 Acct:[id number] Age/Sex: 24 / F ADM Date: Loc: [facility] 257-[address]: RENNY GIL APRN, CNM Ordering Physician: RENNY GIL APRN, CNM Date of Service: 04/09/24 Procedure(s): XR chest 2V Accession Number(s): [id number] cc: RENNY GIL APRN, CNM; BROOKE RODRIGUEZ [place] [address] Patient Name: ELIZABETH PRESTON MRN: [id number] date: 2000 Sex: F Assigned Patient Location: [facility] Current Patient Location: [facility] Accession/Order Number: [id number] Exam Date: 04/09/2024 14:19 Report Date: 04/09/2024 [...] Signed By: 04/09/24 1508 DD/ 1505 TD/TT: Is/It Project Manager: [employer] Radiology Study observation (narrative) [employer] XR CHEST 2VOrdered By: Radio logist Radiology on 04-09-2024 [employer] Work Phone: Automated erythrocytes count in urine sediment (number/area)Ordered By: Telly Moreno on 10-19-2021 RBC Auto (Urine sed) [#/Area] 0-1 [HPF] 0-4 [facility] Automated leukocytes count i n urine sediment (number/area)Ordered By: Telly Kwonzi on 10-19-2021 WBC Auto (Urine sed) [#/Area] 1-2 [HPF] 0-4 [facility] Bilirubin Test strip Ql (U)O rdered By: Telly Moreno on 10-19-2021 Bilirubin Ql (U) Negative Negative [facility] Color Auto (U)Ordered By: Armani Moreno on 10-19-2021 Color (U) Yellow Yellow [facility] Dipstick and Microscopicon 0 10-19-2021 Appearance (U) Clear Normal Clear [facility] Comment on above: Order Comment: Name Collection Type:: Clean-Voided Midstream Performed By: #### U HCG, ADDONUAPLUS #### [facility] [address] [place] [address] [place] Bacteria,Urine None Seen Normal None Seen [facility] Comment on above: Order Comment: Name Collection Type:: Clean-Voided Midstream Performed By: #### U HCG, ADDONUAPLUS #### [facility] [address] [place] [address] [place] Bilirubin,Urine Negative Normal Negative [facility] Comment on above: Order Comment: Name Collection Type:: Clean-Voided Midstream Performed By: #### U HCG, ADDONUAPLUS #### [facility] [address] [place], [place] [id number] [place] Color (U) Yellow Normal Yellow [facility] Comment on above: Order Comment: Name Collection Type:: Clean-Voided Midstream Performed By: #### U HCG, ADDONUAPLUS #### [facility] [address] [place], [place] [address] [place] Glucose Ql (U) Normal Normal Normal [facility] Comment on above: Order Comment: Name Collection Type:: Clean-Voided Midstream Performed By: #### U HCG, ADDONUAPLUS #### [facility] [address] [place], [place] [address] [place] Hyaline Casts,Urine 0-8 Normal 0-8 [facility] Comment on above: Order Comment: Name Collection Type:: Clean-Voided Midstream Performed By: #### U HCG, ADDONUAPLUS #### [facility] [address] [place] [address] Ketones Ql (U) Trace High Negative [facility] Comment on above: Order Comment: Name Collection Type:: Clean-Voided Midstream Performed By: #### U HCG, ADDONUAPLUS #### [facility] [address] [place] [address] Leukocyte esterase Test strip Ql (U) Negative Normal Negative [facility] Comment on above: Order Comment: Name Collection Type:: Clean-Voided Midstream Performed By: #### U HCG, ADDONUAPLUS #### [address] Nitrite,Urine Negative Normal Negative [facility] Comment on above: Order Comment: Name Collection Type:: Clean-Voided Midstream Performed By: #### U HCG, ADDONUAPLUS #### [address] Occult Blood,Urine Trace High Negative [facility] Comment on above: Order Comment: Name Collection Type:: Clean-Voided Midstream Performed By: #### U HCG, ADDONUAPLUS #### [address] pH (U) 6.5 [pH] Normal 5.0-9.0 [facility] Comment on above: Order Comment: Name Collection Type:: Clean-Voided Midstream Performed By: #### U HCG, ADDONUAPLUS #### [facility] [address] [place] [address] [place] Protein,Urine Trace High Negative [facility] Comment on above: Order Comment: Name Collection Type:: Clean-Voided Midstream Performed By: #### U HCG, ADDONUAPLUS #### [facility] [address] [place] [address] [place] RBC LM.HPF (Urine sed) [#/Area] 0 /[HPF] Normal 0-4 [facility] Comment on above: Order Comment: Name Collection Type:: Clean-Voided Midstream Performed By: #### U HCG, ADDONUAPLUS #### [address] [place] [address] [place] Specificy [place],Urine 1.030 Normal 1.001-1.030 [facility] Comment on above: Order Comment: Name Collection Type:: Clean-Voided Midstream Performed By: #### U HCG, ADDONUAPLUS #### [facility] [address] [place] [address] Squamous Epithelial Cell,Urine 3-4 High 0-2 [facility] Comment on above: Order Comment: Name Collection Type:: Clean-Voided Midstream Performed By: #### U HCG, ADDONUAPLUS #### [facility] [address] [place] [address] Urobilinogen,Urine >=2 High Normal [facility] Comment on above: Order Comment: Name Collection Type:: Clean-Voided Midstream Performed By: #### U HCG, ADDONUAPLUS #### [address] WBC,Urine 1-2 Normal 0-4 [facility] Comment on above: Order Comment: Name Collection Type:: Clean-Voided Midstream Performed By: #### U HCG, ADDONUAPLUS #### [facility] [address] [place] [address] HCG ( test) IA.rapi d Ql (U)Ordered By: PROVIDER TEMP on 10-19-2021 HCG ( test) Ql (U) Negative [facility] HCG,Urineon 10-19-2021 Beta HCG ( test) Ql (U) Negative Normal [facility] Comment on above: Order Comment: Name Collection Type:: Clean-Voided Midstream Result Comment: PERF ORMED BY: [address] [place] [address] PATHOLOGIST YARD LOADER OPERATOR MELVA KUHN M.D. Performed By: #### U HCG, ADDONUAPLUS #### [facility] [address] [place] [address] Ketones Auto test strip (U) [Mass/Vol]Ordered By: Telly Moreno on 10-19-2021 Ketones (U) [Mass/Vol] Trace Negative [facility] - UrinalysisOrder ed By: Telly Moreno on 10-19-2021 Hyaline casts LM Ql (Urine sed) 0-8 [LPF] 0-8 [facility] Nitrite Test strip Ql (U)Ord ered By: Telly Moreno on 10-19-2021 Nitrite Ql (U) Negative Negative [facility] Protein Auto test strip (U) [Mass/Vol]Ordered By: Telly Moreno on 10-19-2021 Protein (U) [Mass/Vol] Trace mg/dL Negative [facility] Specific gravity Auto test s trip (U) [Rel density]Ordered By: Telly Moreno on 10-19-2021 Specific gravity (U) [Rel density] 1.030 1.001-1.030 [facility] Squamous epithelial cells de tection in urine sediment by light microscopyOrdered By: Telly Moreno on 10-19-2021 Epithelial cells.squamous LM Ql (Urine sed) 3-4 [HPF] 0-2 [facility] Urine bacteria detection by automated methodOrdered By: Telly Moreno on 10-19-2021 Bacteria Auto Ql (U) None seen None Seen [facility] Urine clarity by refractomet ry automatedOrdered By: Telly Moreno on 10-19-2021 Clarity Refractometry automated (U) Clear Clear [facility] Urine glucose measurement by automated test strip (mass/volume)Ordered By: Telly Moreno on 10-19-2021 Glucose Auto test strip (U) [Mass/Vol] Normal mg/dL Normal [facility] Urine hemoglobin detection b y automated test stripOrdered By: Telly Moreno on 10-19-2021 Hemoglobin Auto test strip Ql (U) Trace Negative [facility] Urine leukocyte esterase det ection by automated test stripOrdered By: Telly Moreno on 10-19-2021 Leukocyte esterase Auto test strip Ql (U) Negative Negative [facility] Urobilinogen Auto test strip (U) [Mass/Vol]Ordered By: Telly Moreno on 10-19-2021 Urobilinogen (U) [Mass/Vol] mg/dL Normal [facility] pH Auto test strip (U)Ordere d By: Telly Moreno on 10-19-2021 pH (U) 6.5 [pH] 5.0-9.0 [facility] Vital Signs Date Time Vital Sign Value Performing Clinician Facility 06-10-2024 10:06-0400 Body mass index (BMI) [Ratio] 18.19 kg/m2 Renny Gil CNM Work Phone: [facility] 06-10-2024 10:06-0400 Body weight 48.08 kg Renny Gil CNM Work Phone: [facility] 06-10-2024 10:06-0400 Diastolic blood pressure 80 mm[Hg] Renny Gil CNM Work Phone: [facility] 06-10-2024 10:06-0400 Systolic blood pressure 120 mm[Hg] Renny Gil CNM Work Phone: [facility] 06-09-2024 09:58-0400 Diastolic blood pressure 85 mm[Hg] [address] Comment on above: copied from earlier BP in our office 06-09-2024 09:58-0400 Heart rate 75 /min [address] 06-09-2024 09:58-0400 Systolic blood pressure 136 mm[Hg] [address] Comment on above: copied from earlier BP in our office 06-09-2024 08:30-0400 Body height 160 cm Haseeb Fraga MD Work Phone: [facility] 06-09-2024 08:30-0400 Body mass index (BMI) [Ratio] 18.99 kg/m2 Haseeb Fraga MD Work Phone: [facility] 06-09-2024 08:30-0400 Body weight 48.63 kg Haseeb Fraga MD Work Phone: [facility] 06-09-2024 08:30-0400 Diastolic blood pressure 85 mm[Hg] Haseeb Fraga MD Work Phone: [facility] 06-09-2024 08:30-0400 Heart rate 75 /min Haseeb Fraga MD Work Phone: [facility] 06-09-2024 08:30-0400 Systolic blood pressure 136 mm[Hg] Haseeb Fraga MD Work Phone: [facility] 06-03-2024 09:01-0400 Body mass index (BMI) [Ratio] 18.54 kg/m2 Renny Floro CNM Work Phone: [facility] 06-03-2024 09:01-0400 Body weight 48.99 kg Renny Floro CNM Work Phone: [facility] 06-03-2024 09:01-0400 Diastolic blood pressure 70 mm[Hg] Renny Floro CNM Work Phone: [facility] 06-03-2024 09:01-0400 Systolic blood pressure 110 mm[Hg] Renny Floro CNM Work Phone: [facility] 05-20-2024 09:23-0400 Body mass index (BMI) [Ratio] 19.22 kg/m2 Renny Floro CNM Work Phone: [facility] 05-20-2024 09:23-0400 Body weight 50.8 kg Renny Floro CNM Work Phone: [facility] 05-20-2024 09:23-0400 Diastolic blood pressure 80 mm[Hg] Renny Floro CNM Work Phone: [facility] 05-20-2024 09:23-0400 Systolic blood pressure 118 mm[Hg] Renny Floro CNM Work Phone: [facility] 04-16-2024 09:08-0500 Body mass index (BMI) [Ratio] 17.85 kg/m2 Renny Floro CNM Work Phone: [facility] 04-16-2024 09:08-0500 Body weight 47.17 kg Renny Floro CNM Work Phone: [facility] 04-09-2024 10:35-0500 Body mass index (BMI) [Ratio] 18.71 kg/m2 Renny Floro CNM Work Phone: [facility] 04-09-2024 10:35-0500 Body weight 49.44 kg Renny Floro CNM Work Phone: [facility] 04-09-2024 10:35-0500 Diastolic blood pressure 78 mm[Hg] Renny Floro CNM Work Phone: [facility] 04-09-2024 10:35-0500 Systolic blood pressure 120 mm[Hg] Renny Floro CNM Work Phone: [facility] 02-27-2024 08:33-0500 Body mass index (BMI) [Ratio] 19.4 kg/m2 Renny Floro CNM Work Phone: [facility] 02-27-2024 08:33-0500 Body weight 51.26 kg Renny Floro CNM Work Phone: [facility] 02-27-2024 08:33-0500 Diastolic blood pressure 80 mm[Hg] Renny Floro CNM Work Phone: [facility] 02-27-2024 08:33-0500 Systolic blood pressure 118 mm[Hg] Renny Floro CNM Work Phone: [facility] 01-28-2024 09:26-0500 Body mass index (BMI) [Ratio] 17.68 kg/m2 Renny Floro CNM Work Phone: [facility] 01-28-2024 09:26-0500 Body weight 46.72 kg Renny Floro CNM Work Phone: [facility] 01-14-2024 08:56-0500 Body mass index (BMI) [Ratio] 15.45 kg/m2 Renny Floro CNM Work Phone: [facility] 01-14-2024 08:56-0500 Body weight 40.82 kg Renny Floro CNM Work Phone: [facility] 01-14-2024 08:56-0500 Diastolic blood pressure 70 mm[Hg] Renny Gil CNM Work Phone: [facility] 01-14-2024 08:56-0500 Systolic blood pressure 110 mm[Hg] Renny Gil CNM Work Phone: [facility] 01-07-2024 10:21-0500 Body mass index (BMI) [Ratio] 14.93 kg/m2 Renny Gil CNM Work Phone: [facility] 01-07-2024 10:21-0500 Body weight 39.46 kg Renny Gil CNM Work Phone: [facility] 10-19-2021 20:03-0400 Body temperature 99 [degF] MD Brooke Rodriguez Work Phone: [facility] 10-19-2021 20:03-0400 Diastolic blood pressure 56 mm[Hg] MD Brooke Rodrgiuez Work Phone: [facility] 10-19-2021 20:03-0400 Heart rate 70 /min MD Brooke Rodriguez Work Phone: [facility] 10-19-2021 20:03-0400 Respiratory rate 18 /min MD Brooke Rodriguez Work Phone: [facility] 10-19-2021 20:03-0400 SaO2% (BldA) [Mass fraction] 99 % MD Brooke Rodriguez Work Phone: [facility] 10-19-2021 20:03-0400 Systolic blood pressure 118 mm[Hg] MD Brooke Rodriguez Work Phone: [facility] 10-19-2021 17:13-0400 Body height 157.48 cm MD Brooke Rodriguez Work Phone: [facility] 10-19-2021 17:13-0400 Body weight 52.45 kg MD Brooke Rodriguez Work Phone: [facility] Encounters Encounter Date Encounter Type Care Provider Facility Start: 06-11-2024 End: 06-11-2024 Patient encounter procedure Renny Gil CNM Work Phone: [facility] Comment on above: Encounter for prenat al care of first , third trimester (Primary Dx); growth restriction antepartum; Hyperemesis affecting , antepartum Start: 06-10-2024 End: 06-10-2024 Bamboo flowsheet Renny Gil CNM Work Phone: [facility] Start: 06-10-2024 End: 06-10-2024 Bamboo flowsheet Renny Normano CNM Work Phone: [facility] Start: 06-10-2024 End: 06-10-2024 Subsequent care visit Renny Gil CNM Work Phone: [facility] Comment on above: growth restric tion antepartum (Primary Dx); Encounter for care of first , third trimester; screening for streptococcus B; Hyperemesis affecting , antepartum Start: 06-09-2024 End: 06-09-2024 Office consultation new/estab patient 60 min Haseeb Fraga MD Work Phone: [facility] [facility] Comment on above: Poor growth af fecting management of mother in third trimester, single or unspecified fetus (Primary Dx) Start: 06-09-2024 End: 06-09-2024 Orders Only Madeline Phillips RN Maternal- Medicine at [facility] Comment on above: Poor growth af fecting management of mother in third trimester, single or unspecified fetus (Primary Dx) Poor growth af fecting management of mother in third trimester, single or unspecified fetus Start: 06-03-2024 End: 06-03-2024 Bamboo flowsheet Renny Normano CNM Work Phone: [facility] Start: 06-03-2024 End: 06-03-2024 Bamboo flowsheet Renny L Floro CNM Work Phone: [facility] Start: 06-03-2024 End: 06-03-2024 Subsequent care visit Renny L Floro CNM Work Phone: [facility] Comment on above: Vomiting ( Primary Dx); Poor growth affecting management of mother in third trimester, single or unspecified fetus; Encounter for care of first , third trimester Start: 06-03-2024 End: 06-03-2024 ambulatory RENNY L FLORO Not Available Start: 05-22-2024 End: 05-22-2024 Telephone encounter Renny L Floro CNM Work Phone: [facility] Start: 05-20-2024 End: 05-20-2024 Subsequent care visit Renny L Floro CNM Work Phone: [facility] Comment on above: Vomiting ( Primary Dx); Encounter for care of first , second trimester; Hyperemesis affecting , antepartum Start: 05-20-2024 End: 05-20-2024 ambulatory RENNY L FLORO Not Available Start: 04-29-2024 End: 04-29-2024 ambulatory RENNY L FLORO Not Available Start: 04-16-2024 End: 04-16-2024 Bamboo flowsheet Renny L Floro CNM Work Phone: [facility] Start: 04-16-2024 End: 04-16-2024 Bamboo flowsheet Renny L Floro CNM Work Phone: [facility] Start: 04-16-2024 End: 04-16-2024 ambulatory RENNY L FLORO Not Available Start: 04-16-2024 End: 04-16-2024 Subsequent care visit Renny L Floro CNM [...] 04-09-2024 End: 04-09-2024 Subsequent care visit Renny L Floro CNM Work Phone: [facility] Comment on above: Encounter for prenat al care of first , antepartum, third trimester (Primary Dx); Vomiting ; Anemia during in second trimester Start: 04-06-2024 End: 04-06-2024 Telephone encounter Renny L Floro CNM Work Phone: [facility] Start: [...] 02-27-2024 End: 02-27-2024 Subsequent care visit Renny Normano CNM Work [...] Start: 01-14-2024 End: 01-14-2024 Bamboo flowsheet Renny Soledad Normano CNM Work Phone: [facility] Start: 01-14-2024 End: 01-14-2024 Bamboo flowsheet Renny Soledad Normano CNM Work Phone: [facility] [...] OB Start: 01-07-2024 End: 01-07-2024 ambulatory Renny L Floro CNM Work Phone: [facility] Comment on above: GA: 13w6d Start: 12-31-2023 End: 12-31-2023 Telephone encounter Renny Gil CNM Work Phone: [facility] Start: 10-19-2021 End: 10-19-2021 Emergency department patient visit MD Brooke Rodriguez Work Phone: [facility]-Emergency Room Procedures Date Procedure Procedure Detail Performing Clinician Start: 06-10-2024 nonstress test Na tyler Fraga MD Work Phone: Start: 04-09-2024 XR CHEST 2V Renny Normano CNM Work Phone: Start: 04-09-2024 US OB BPP WO NON-STRESS Renny Soledad Normano CNM Work Phone: Start: 04-09-2024 ALL CBC WITH AUTO DIFF Renny Gil CNM Work Phone: Plan of Treatment Date Care Activity Detail Author Start: 06-09-2025 Adult BMI Screening Adult BMI Screen ing [facility] Start: 06-09-2025 Tobacco Screening Tobacco Screening [facility] Start: 06-09-2025 End: 06-09-2025 US MFM with or without consult US MFM with or without consult Imaging Routine Poor growth affecting management of mother in third trimester, single or unspecified fetus Expected: 06/09/2025 (Approximate), Expires: 06/09/2025 [facility] Work Phone: Comment on above: Expected: 06/09/2025 (Approximate), Expires: 06/09/2025 Start: 10-26-2024 Influenza vaccination N [facility] Start: 07-01-2024 End: 07-01-2024 Patient encounter procedure 07/01/2024 3:00 PM EDT Appointment [facility] [address] [place] [address] [facility] Start: 06-22-2024 End: 06-22-2024 Patient encounter procedure 06/22/2024 4:15 PM EDT Routine [facility] [address] [place] [address] [address] CNM [address] [place] [address] [facility] Start: 06-22-2024 End: 06-22-2024 Professional / ancillary services management 06/22/2024 3:45 PM EDT Ancillary Procedure [facility] [address] [place] [phone] [facility] Start: 06-18-2024 End: 06-18-2024 Patient encounter procedure 06/18/2024 3:15 PM EDT Routine [facility] [address] [facility] [place] [phone] Gil CNM [address] [place] [address] [facility] Start: 06-16-2024 End: 06-16-2024 Patient encounter procedure 06/16/2024 9:15 AM EDT Appointment [facility] - Ultrasound [address] [place] [address] [facility] - Ultrasound Start: 06-15-2024 End: 06-15-2024 Professional / ancillary services management 06/15/2024 4:45 PM EDT Ancillary Procedure [facility] [address] [id number] [facility] Start: 06-15-2024 End: 06-15-2024 Patient encounter procedure 06/15/2024 3:45 PM EDT Routine [facility] [address] [facility] [place] [phone] Renny Gil, MEGM [address] [place] [address] [facility] Start: 06-11-2024 End: 06-11-2024 Patient encounter procedure 06/11/2024 9:00 AM EDT Routine [facility] [address] [place] [address] Renny Gil CNM [address] [place] [address] [facility] Start: 06-10-2024 End: 06-10-2025 STREPTOCCOUS, GROUP B CULTURE STREPTOCCOUS, GROUP B CULTURE Lab Routine screening for streptococcus B Expected: 06/10/2024 (Approximate), Expires: 06/10/2025 [facility] Work Phone: Comment on above: Expected: 06/10/2024 (Approximate), Expires: 06/10/2025 Start: 06-10-2024 End: 06-10-2025 US for US OB limited 1+ fetuses Imaging Routine growth restriction antepartum Expected: 06/10/2024, Expires: 06/10/2025 [facility] Comment on above: Expected: 06/10/2024 , Expires: 06/10/2025 Start: 06-09-2024 End: 06-09-2025 nonstress test - Maternal Medicine nonstress test - Maternal Medicine OB Routine Poor growth affecting management of mother in third trimester, single or unspecified fetus Expected: 06/09/2024 (Approximate), Expires: 06/09/2025 [facility] Work Phone: Comment on above: Expected: 06/09/2024 (Approximate), Expires: 06/09/2025 Start: 06-09-2024 End: 06-09-2024 ambulatory 06/09/2024 10:45 AM EDT Support Visit Maternal- Medicine at [facility] [address] [place] [address] Poor growth affecting management of mother in third trimester, single or unspecified fetus Maternal- Medicine at [facility] Comment on above: Poor growth af fecting management of mother in third trimester, single or unspecified fetus Start: 06-03-2024 End: 06-03-2025 US for US OB follow up transabdominal approach Imaging Routine Poor growth affecting management of mother in third trimester, single or unspecified fetus Expected: 06/03/2024, Expires: 06/03/2025 [facility] Work Phone: Comment on above: Expected: 06/03/2024 , Expires: 06/03/2025 Start: 06-03-2024 End: 06-03-2024 Patient encounter procedure [facility] Comment on above: Arrived Start: 04-16-2024 End: 04-16-2025 CBC panel - Blood by Automated count CBC Lab Routine Screening for iron deficiency anemia Expected: 04/16/2024 (Approximate), Expires: 04/16/2025 [facility] Work Phone: Comment on above: Expected: 04/16/2024 (Approximate), Expires: 04/16/2025 Start: 04-16-2024 End: 04-16-2025 GLUCOSE, GESTATIONAL SCREEN (50G)-135 CUTOFF GLUCOSE, GESTATIONAL SCREEN (50G)-135 CUTOFF Lab Routine Screening for diabetes mellitus (DM) Expected: 04/16/2024 (Approximate), Expires: 04/16/2025 [facility] Comment on above: Expected: 04/16/2024 (Approximate), Expires: 04/16/2025 Start: 04-16-2024 End: 04-16-2025 US for US OB follow up transabdominal approach Imaging Routine related condition in third trimester Expected: 04/16/2024, Expires: 04/16/2025 [facility] Comment on above: Expected: 04/16/2024 , Expires: 04/16/2025 Start: 04-16-2024 End: 04-16-2024 Patient encounter procedure 04/16/2024 9:00 AM EST Routine [facility] [address] [place] [address] Renny Gil CNM [address] [place], [place] [phone] [facility] Start: 03-26-2024 End: 03-26-2024 Patient encounter procedure 03/26/2024 3:45 PM EST Routine [facility] [address] [facility] [place] [phone] Renny Gil, CNM [address] [place] [address] Arrived [facility] Comment on above: Arrived Start: 03-26-2024 End: 03-26-2024 Patient encounter procedure 03/26/2024 8:30 AM EST Routine [facility] [address] [facility] [place] [phone] Renny Gil, CNM [address] [place] [address] [facility] Start: 02-27-2024 End: 02-27-2024 Patient encounter procedure 02/27/2024 8:30 AM EST Routine [facility] [address] [facility] [place] [phone] Renny Gil, CNM [address] [place] [address] [facility] Start: 01-28-2024 End: 01-27-2025 US for US OB 14+ weeks anatomy scan Imaging Routine related condition in second trimester Expected: 01/28/2024, Expires: 01/27/2025 [facility] Work Phone: Comment on above: Expected: 01/28/2024 , Expires: 01/27/2025 Start: 01-28-2024 End: 01-28-2024 Patient encounter procedure 01/28/2024 8:30 AM EST Routine [facility] [address] [facility] [place] [phone] Renny Gil, CNM [address] [place] [address] [facility] Start: 01-15-2024 End: 01-15-2024 ambulatory 01/15/2024 1:00 PM EST Initial [facility] [address] [place] [address] Renny Gil CNM [address] [place] [address] [facility] Start: 01-14-2024 End: 2025 ABO/Rh ABO/Rh Lab Routine examination or test, positive result Expected: 01/14/2024 (Approximate), Expires: 2025 [facility] Comment on above: Expected: 01/14/2024 (Approximate), Expires: 2025 Start: 01-14-2024 End: 2025 Antibody screen Antibody screen Lab Routine examination or test, positive result Expected: 01/14/2024 (Approximate), Expires: 2025 [facility] Comment on above: Expected: 01/14/2024 (Approximate), Expires: 2025 Start: 01-14-2024 End: 2025 Bacteria identified in Urine by Culture Urine culture Microbiology Routine examination or test, positive result Expected: 01/14/2024 (Approximate), Expires: 2025 [facility] Comment on above: Expected: 01/14/2024 (Approximate), Expires: 2025 Start: 01-14-2024 End: 2025 CBC panel - Blood by Automated count CBC Lab Routine examination or test, positive result Expected: 01/14/2024 (Approximate), Expires: 2025 [facility] Comment on above: Expected: 01/14/2024 (Approximate), Expires: 2025 Start: 01-14-2024 End: 2025 DRUG TOX MONITORIGN 6 W/ CONF,URINE DRUG TOX MONITORIGN 6 W/ CONF,URINE Lab Routine examination or test, positive result Expected: 01/14/2024 (Approximate), Expires: 2025 [facility] Comment on above: Expected: 01/14/2024 (Approximate), Expires: 2025 Start: 01-14-2024 End: 2025 Hemoglobin A1c/Hemoglobin.total in Blood Hemoglobin A1c Lab Routine examination or test, positive result Expected: 01/14/2024 (Approximate), Expires: 2025 [facility] Comment on above: Expected: 01/14/2024 (Approximate), Expires: 2025 Start: 01-14-2024 End: 2025 Hepatitis B virus surface Ag [Presence] in Serum or Plasma by Immunoassay Hepatitis B surface antigen Lab Routine examination or test, positive result Expected: 01/14/2024 (Approximate), Expires: 2025 [facility] Work Phone: Comment on above: Expected: 01/14/2024 (Approximate), Expires: 2025 Start: 01-14-2024 End: 2025 Hepatitis C virus Ab [Presence] in Serum or Plasma by Immunoassay Hepatitis C antibody Lab Routine examination or test, positive result Expected: 01/14/2024 (Approximate), Expires: 2025 [facility] Comment on above: Expected: 01/14/2024 (Approximate), Expires: 2025 Start: 01-14-2024 End: 2025 HIV-1/HIV-2 antigen/antibody combination immunoassay HIV-1 and HIV-2 antibodies Lab Routine examination or test, positive result Expected: 01/14/2024 (Approximate), Expires: 2025 [facility] Comment on above: Expected: 01/14/2024 (Approximate), Expires: 2025 Start: 01-14-2024 End: 2025 Neisseria gonorrhoeae DNA [Presence] in Cervical mucus by DARYL with probe detection C. trachomatis / N. gonorrhoeae, DNA probe Pathology and Cytology Routine examination or test, positive result Expected: 01/14/2024 (Approximate), Expires: 2025 [facility] Comment on above: Expected: 01/14/2024 (Approximate), Expires: 2025 Start: 01-14-2024 End: 2025 Reagin Ab [Presence] in Serum by RPR RPR Lab Routine examination or test, positive result Expected: 01/14/2024 (Approximate), Expires: 2025 [facility] Comment on above: Expected: 01/14/2024 (Approximate), Expires: 2025 Start: 01-14-2024 End: 2025 Rubella antibody, IgG Rubella antibody, IgG Lab Routine examination or test, positive result Expected: 01/14/2024 (Approximate), Expires: 2025 [facility] Comment on above: Expected: 01/14/2024 (Approximate), Expires: 2025 Start: 01-14-2024 End: 2025 TSH W/REFLEX TO FT4 TSH W/REFLEX TO FT4 Lab Routine examination or test, positive result Expected: 01/14/2024 (Approximate), Expires: 2025 [facility] Comment on above: Expected: 01/14/2024 (Approximate), Expires: 2025 Start: 01-14-2024 End: 2025 URINALYSIS MICROSCOPIC URINALYSIS MICROSCOPIC Lab Routine examination or test, positive result Expected: 01/14/2024 (Approximate), Expires: 2025 [facility] Comment on above: Expected: 01/14/2024 (Approximate), Expires: 2025 Start: 12-26-2023 DTaP,Tdap and Td Vaccines (7 - Td or Tdap) DTaP,Tdap and Td Vaccines (7 - Td or Tdap) [facility] Start: 10-27-2023 Influenza vaccination Influenza Vacc ine (#1) [facility] Start: 2023 Screening for malign ant neoplasm of cervix Pap Smear [facility] Start: 2014 Depression Screening Depression Scre ening [facility] Start: 2002 Screening for Chlamy maryjane trachomatis Chlamydia Screening [facility] Patient referral [facility] Work Phone: Payers Date Payer Category Payer Medicaid [place] [id number] 2023 Medicaid [id number] 2022 Managed Care Other (unspecified) [facility] [id number] 2022 Private Health Insurance [employer] [id number] 2022 Unknown [id number] 2002 Unknown [id number] [id number]. 1259 2002 Unknown [id number] 2.16.840.1.587798.3.579.2. 1259 2002 Unknown [id number] 2.16.840.1.621029.3.579.2. 1259 2002 Unknown [id number] 2.16.840.1.498013.3.579.2. 1259 2002 Unknown [id number] 2.16.840.1.918175.3.579.2. 1259 2002 Unknown [id number] 2.16.840.1.704364.3.579.2. 1259 2002 Unknown [id number] 2.16.840.1.975361.3.579.2. 1259 2002 Unknown [id number] 2.16.840.1.781528.3.579.2. 1259 2002 Unknown [id number] 2.16.840.1.631651.3.579.2. 1259 2002 Unknown [id number] 2.16.840.1.661030.3.579.2. 1259 2002 Unknown [id number] 2.16.840.1.243983.3.579.2. 1259 2002 Unknown [id number] 2.16.840.1.462437.3.579.2. 1286 2002 Unknown [id number] 2.16.840.1.894293.3.579.2. 1286 2002 Unknown [id number] [id number]. 1286 Social History Date Type Detail Facility Start: 10-19-2021 End: 01-07-2024 Tobacco smoking status NHIS Never smoked tobacco (finding) [facility] Start: 2002 [facility] Assigned At Female [facility] consumption unknown [facility] Start: 2002 Sex assigned at Not on file [facility] Start: 01-07-2024 End: 06-09-2024 Gender identity Not on file [facility] Start: 01-07-2024 End: 06-08-2024 Tobacco use and exposure Smokeless tobacco non-user [facility] Start: 01-07-2024 End: 06-09-2024 Alcoholic beverage intake Ex-drinker (finding) [facility] Start: 01-07-2024 End: 06-09-2024 History of Social function [facility] Start[facility]-16-[facility]23 [facility] Start: 06-08-2024 Tobacco smoking stat [facility] History of tobacco use Current smoker [facility] History of tobacco use Tobacco U se Types Packs/Day Years Used Date Smoking Tobacco: Former Vaping/E-cigarettes Smokeless Tobacco: Never [facility] Childcare Unknown [facility] Start: 09-30-2014 Sex Female (finding) [facility] Clinical Notes 12-31-2023 to 06-11-2024 Renny Gil CNM - 06/11/2024 9:00 AM EDTRenny Gil CNM - 06/10/2024 10:00 AM Kay Chua RN - 06/09/2024 10:45 AM Rajan Phillips RN - 06/09/2024 9:30 AM EDT Note Date & Type Note Facility 06-11-2024 History of Presen t illness Narrative Reactive NST today Patient has large emesis of clear, yellowish colored emesis. Nauseated and she will go home and shower and rest. She will call [facility] and report her nausea and continued vomiting. documented in this encounter [facility] 06-10-2024 History of Presen t illness Narrative Subjective No chief complaint on file. Elizabeth Preston is a 24 y.o. at 36w0d with a working estimated date of delivery of 07/08/2024, by Ultrasound who presents for a routine visit. She denies vaginal bleeding, leakage of fluid, decreased movements, or contractions. OB History Para Term AB Living 1 SAB IAB Ectopic Multiple Live Births # Outcome Date GA Lbr Jomar/2nd Weight Sex Type Anes PTL Lv 1 Current Her is complicated by: pt states she got her zofran pump last week and has been doing a little better. She did have a bad day yesterday and couldn't keep anything down. [facility] increased her dosage today. She saw mfm yesterday. Objective Physical Exam weight: 106 lb Expected Total Weight Gain: 27 lb-39 lb Pregravid BMI: 14.93 BP: 120/80 Urine protein Urine glucose Assessment/Plan Diagnoses and all orders for this visit: growth restriction antepartum Encounter for care of first , third trimester screening for streptococcus B - STREPTOCCOUS, GROUP B CULTURE; Future Hyperemesis affecting , antepartum MFM report reviewed. Patient has growth restriction with EFW in 8th percentile with normal doppler studies. She will return in 1 week for repeat doppler studies, recommend delivery at 38-39 weeks, continue twice weekly NST and weekly CONNOR at my office. Patient will do Saturday- NST and CONNOR and NST Patient got her Zofran pump last week from [facility] and states It's helping a little bit dose increased today. MFM told her that nothing will help at this point except delivery Continue vitamin. Labs reviewed. GBS taken today Induction scheduled for 38 weeks per MFM recommendation. Expected mode of delivery Follow up tomorrow for NST and then in 1 week for a routine visit, NST and CONNOR documented in this encounter [facility] 06-09-2024 History of Presen t illness Narrative Denies current cramping or contractions. Denies LOF, abnormal vaginal discharge or vaginal bleeding. +FM per patient. Denies headache, epigastric pain, visual disturbance or swelling. Instructed to notify physician if experiencing any of the following: intermittent low back pain abdominal or menstrual like cramping that is comes and goes or is constant vaginal pressure uterine contractions that are regular and timeable water breaks or feels a gush of fluid any vaginal bleeding that is heavier than a menstrual period decrease or absence of baby movement Advised to drink plenty of fluids, take all prescribed medications, and to keep all scheduled appointments documented in this encounter [facility] 06-09-2024 History of Presen t illness Narrative Headache/epigastric pain/blurry vision/swelling? No Cramping/contractions? No Abnormal vaginal discharge? No Spotting/vaginal bleeding? No Loss or gush of fluid like your water may have broken? No Do you have cats at home? No Do you change the litter box (reason: risk of toxoplasmosis)? N/A Genetic testing done this here or other office? No Have you been seen here at [facility] in a previous ? No Recent ER visits or hospitalizations? No Bring blood sugar log or meter with you today? (Please bring them with you for every visit at [facility]) N/A Flu vaccine (Dec-April)? N/A Any concerns that you would like me to mention to the provider today? No REASON FOR CONSULTATION: growth restriction. HISTORY OF PRESENT ILLNESS: Elizabeth Preston is a pleasant 24 y.o. G 1 P0. at 35w6d due on Estimated Date of Delivery: 07/08/24 . Patient was seen today due to the following 1. growth restriction with estimated weight at the 8th percentile with normal Doppler studies. 2. echogenic cardiac focus. Patient has opted out of genetic screening. 3. Maternal hyperemesis most likely due to chronic THC use. Currently the patient has no complaints. The patient denies nausea, vomiting, abdominal pain, vaginal bleeding, SOB or chest pain. Patient's PMH/PSH,SH,PSYCH Hx, MEDs, ALLERGIES, and ROS were all reviewed and updated in the appropriate sections. Patient Active Problem List Diagnosis Poor growth affecting management of mother in third trimester Past Medical History: Diagnosis Date Anemia Heart murmur Hyperemesis gravidarum PAST OBSTETRICAL HISTORY: OB History 1 Para Term AB Living SAB IAB Ectopic Multiple Live Births SURGICAL HISTORY: No past surgical history on file. ALLERGIES: No Known Allergies CURRENT MEDICATIONS: Current Outpatient Medications: ondansetron ODT (ZOFRAN ODT) 4 mg disintegrating tablet, Dissolve 1 tablet (4 mg total) on tongue every 8 (eight) hours as needed for nausea or vomiting., Disp: , Rfl: PNV cmb#95-ferrous fumarate-FA () 28 mg iron- 800 mcg tablet, Take by mouth., Disp: , Rfl: docusate sodium (COLACE) 100 mg capsule, Take 1 capsule (100 mg total) by mouth in the morning and 1 capsule (100 mg total) before bedtime. (Patient not taking: Reported on 06/09/2024), Disp: , Rfl: ferrous sulfate 325 (65 FE) MG tablet, Take 1 tablet (325 mg total) by mouth daily with breakfast. (Patient not taking: Reported on 06/09/2024), Disp: , Rfl: metoclopramide (REGLAN) 10 mg tablet, Take 1 tablet (10 mg total) by mouth in the morning and 1 tablet (10 mg total) at noon and 1 tablet (10 mg total) in the evening and 1 tablet (10 mg total) before bedtime. (Patient not taking: Reported on 06/09/2024), Disp: , Rfl: FAMILY/GENETIC HISTORY: No family history of VTE, cardiac defects and mental retardation . RECENT HOSPITALIZATION: none I did review all the labs results available in addition to labs which were ordered by the primary care physician, and the other consultants, we search on [employer] and all the available care everywhere [facility] I did review all the imaging studies of the patient available on EMR, ordered by the primary care physician and the other professional employer consultant HABITS: Patient activity no restrictions, diet no restrictions REVIEW OF SYSTEM: Head and Neck: Negative for any dizziness and headaches. Cardiovascular and Respiratory System: Denies any chest pain, shortness of breath, and coughing. Abdominal and System: Denies any abdominal pain, nausea, vomiting, vaginal bleeding, and vaginal discharge PHYSICAL EXAMINATION: BP 136/85 Pulse 75 Ht 160 cm (5' 2.99 ) Wt 48.6 kg (107 lb 3.2 oz) LMP (LMP Unknown) BMI 18.99 kg/m . Gravid abdomen, Respirations not labored. Well oriented time place person, normal gait MEDICAL DECISION MAKING DISCUSSION: I started discussion with the patient that cardiac echogenic foci can be a soft marker for aneuploidy. In the absence of any other anatomical abnormalities, and normal screen, these echogenic foci has no clinical relevance and do not need to be followed us. Since the patient's screen is not available we discussed the fetus needs to be evaluated after delivery. We started our discussion with pathophysiology of growth restriction (FGR) that can result from a variety of maternal, , and placental conditions.1 Although the primary underlying mechanisms for FGR are varied, they often share the same final common pathway of suboptimal nutrition and uteroplacental perfusion. Chromosomal disorders and congenital malformations are responsible for approximately 20% of FGR cases. Suboptimal perfusion of the maternal placental circulation is the most common cause of FGR and accounts for 25e30% of all cases. FGR occurs in up to 10% of pregnancies and is a leading cause of infant morbidity and mortality. In fetuses at all gestational ages with weights or abdominal circumference below the 10th percentile, the stillbirth rate is approximately 1.5%, which is twice the rate in fetuses with normal growth. Further discussed the frame work of managing fetus with growth restriction. This include testing in the form of nonstress tests CONNOR and Doppler studies that will occur serially until the patient is delivered. Timing of delivery is contingent upon testing Doppler studies and amniotic fluid index and can change according to the test results. RECOMMENDATION: 1. growth restriction with estimated weight at the 8th percentile with normal Doppler studies. 2. Follow-up in 1 week for repeat Doppler studies. 3. Delivery at 38-39 weeks gestation based on growth restriction with normal Doppler studies. 4. Continue twice weekly NST and weekly CONNOR at her OB office until delivery. 5. Vaginal delivery is to be anticipated with C section reserve for routine obstetrical indications. 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 Patient does have ultrasound scheduled with us at our [facility] site Thank you for allowing me to participate in Elizabeth Preston . If there any questions please do not hesitate to contact us. Sincerely, HASEEB FRAGA MD documented in this encounter [facility] 06-03-2024 History of Presen t illness Narrative Subjective No chief complaint on file. Elizabeth Preston is a 24 y.o. at 35w0d with a working estimated date of delivery of 07/08/2024, by Ultrasound who presents for a routine visit. She denies vaginal bleeding, leakage of fluid, decreased movements, or contractions. OB History Para Term AB Living 1 SAB IAB Ectopic Multiple Live Births # Outcome Date GA Lbr Jomar/2nd Weight Sex Type Anes PTL Lv 1 Current Her is complicated by: nausea and vomiting. Pt waiting for insurance approval for zofran pump through [facility]. She states she is still vomiting 2-5 times a day and is taking oral zofran and states that helps a little. Pt recently switched medicaid insurance and that's what is holding up the approval for pump. Pt states [facility] said they will call her to schedule as soon as its approved. Patient has lost 4 lbs since last week. Objective Physical Exam weight: 108 lb Expected Total Weight Gain: 27 lb-39 lb Pregravid BMI: 14.93 BP: 110/70 Patient's insurance changed and [facility] is now trying to get the zofran pump and home system set up for her. She has been waiting for 4 weeks. She is stating she is vomiting 2-5 times per day but states some days are better than others. She is out of zofran, and I will send in refills. She is also measuring small for dates today. She is 35 w and fundal height measurement is 32 cm US for growth ordered today. Patient states movement is strong and all of the time. Urine protein-30 Urine glucose-negative Assessment/Plan Continue vitamin. Labs reviewed. GBS taken. Expected mode of delivery Follow up in 1 week for a routine visit. documented in this encounter [facility] 05-22-2024 Telephone encounter Note Ma this is Ra calling from [facility] calling regarding Luis levy, date of is 1901. This is regarding her Leandro pump. We have been trying to get her most recent potassium level. She reported that she had low potassium. We do have a criteria for the pump. It has to be 3.1 or above. So we need that result before we can start her on service. We received magnesium results but did not receive the potassium. If we do not get them in the next hour, then this will be delayed until next week. If there is any problem getting that back to me, you can call me at [phone] and it is option for. Otherwise you could fix it right away. But if there is a problem with it, just please let us know. Again, this has been waiting for a couple days now. Thank you. [facility] 05-22-2024 Miscellaneous Notes Ma, this is Ra calling from [facility] calling regarding Luis levy, date of is 1901. This is regarding her Leandro pump. We have been trying to get her most recent potassium level. She reported that she had low potassium. We do have a criteria for the pump. It has to be 3.1 or above. So we need that result before we can start her on service. We received magnesium results but did not receive the potassium. If we do not get them in the next hour, then this will be delayed until next week. If there is any problem getting that back to me, you can call me at [phone] and it is option for. Otherwise you could fix it right away. But if there is a problem with it, just please let us know. Again, this has been waiting for a couple days now. Thank you. documented in this encounter [facility] 05-20-2024 History of Presen t illness Narrative Subjective No chief complaint on file. Elizabeth Preston is a 24 y.o. at 33w0d with a working estimated date of delivery of 07/08/2024, by Ultrasound who presents for a routine visit. She denies vaginal bleeding, leakage of fluid, decreased movements, or contractions. OB History Para Term AB Living 1 SAB IAB Ectopic Multiple Live Births # Outcome Date GA Lbr Jomar/2nd Weight Sex Type Anes PTL Lv 1 Current Her is complicated by: hyperemesis gravidarum, Objective Physical Exam weight: 112 lb Expected Total Weight Gain: 27 lb-39 lb Pregravid BMI: 14.93 BP: 118/80 Urine protein Urine glucose Assessment/Plan Diagnoses and all orders for this visit: Vomiting Encounter for care of first , second trimester Hyperemesis affecting , antepartum Patient was in the hospital 2 times while I was out of the office. [facility] physician saw her twice and wanted a zofran pump ordered. I did explain to [facility] physician it was ordered earlier in her and she cancelled it as she began to feel better. Hospitalist is wondering about marijuana withdrawal syndrome. Patient state she did smoke daily and sometimes multiple times a day and then she abruptly quit. States she is not currently smoking. Paperwork and info sent to [facility] for order of Zofran pump. Patient also was denied the pump earlier due to her insurance, and patient is also inquiring about that. Continue vitamin. Labs reviewed. GBS at 36 weeks Expected mode of delivery Follow up in 1 week for a routine visit. documented in this encounter [facility] 04-16-2024 History of Presen t illness Narrative [...] a routine visit. documented in this encounter [facility] 04-09-2024 History of Presen t illness Narrative [...] She has been in and out of [facility] x3. She was told she had Norovirus. She has stopped having diarrhea but continues to vomit. She is pale, laying in the position with her legs up to her chest and states her stomach hurts and that she just vomited in our trash can. Send to [facility] Orders given to Janay RN I will keep her overnight and hydrate her and give antiemetics. Her ketones in urine are elevated and small amount protein. I want to keep her overnight and will assess for HG vs viral illness. If patient has HG I will send referral to [facility] for evaluation of Zofran pump. Follow up in 2 weeks for a routine visit. documented in this encounter [facility] 04-06-2024 Telephone encounter Note [facility] called asking for any office notes , labs,etc. I sent her labs but didn't see any office notes or other info I could send , [facility] 04-06-2024 Miscellaneous Notes [facility] called asking for any office notes , labs,etc. I sent her labs but didn't see any office notes or other info I could send , documented in this encounter [facility] 04-06-2024 Telephone encounter Note Patient calling this morning to schedule appt with Clare today. She has vomiting and pain. She is 26 weeks . She went to the [facility] ER last night and was diagnosed with flu and was told she would be better in 24 hours. She was pulling back into the same ER as we were talking- she is not feeling better. Please advise. Thank you. [facility] 04-06-2024 Miscellaneous Notes Patient calling this morning to schedule appt with Clare today. She has vomiting and pain. She is 26 weeks . She went to the [facility] ER last night and was diagnosed with flu and was told she would be better in 24 hours. She was pulling back into the same ER as we were talking- she is not feeling better. Please advise. Thank you. documented in this encounter [facility] 02-27-2024 History of Presen t [...] a routine visit. documented in this encounter [facility] 01-28-2024 History of Presen t [...] a routine visit. documented in this encounter [facility] 01-14-2024 History of Presen t [...] complicated by: pt was [facility]. She states she is [...] Daily vitamin- begin today. RX sent to [facility]. Gummies sent as patient states she cannot swallow big pills easily. Labs drawn today GTT at 28 weeks Follow up in 2 weeks for a routine visit. documented in this encounter [facility] 01-07-2024 History of Presen t [...] also given office phone number and [facility] number to call in case of an emergency or after hours needs. PVU and all questions answered. We did discuss place of delivery. Patient should plan to go to [facility] for all services unless an emergency and they need to go to the closest ER. We can make other arrangements possibly if patient would like to deliver at another facility but I did explain I am now at [place] 100% of the time and would like to do all deliveries there. documented in this encounter [facility] 12-31-2023 Telephone encounter Note Pt called to schedule an appt with Clare. She has had 1 us and 0 . Pt states she is 13 wks tomorrow. [facility] 12-31-2023 Miscellaneous Notes Pt called to schedule an appt with Clare. She has had 1 us and 0 . Pt states she is 13 wks tomorrow. documented in this encounter [facility] Evaluation note No assessment inform ation available [facility] Work Phone: Evaluation note Diagnosis [...] third trimester [facility] Diagnosis Vomiting - Primary Unspecified vomiting of , unspecified as to episode of care Encounter for care of first , second trimester Hyperemesis affecting , antepartum [facility] Diagnosis Vomiting - Primary Unspecified vomiting of , unspecified as to episode of care Poor growth affecting management of mother in third trimester, single or unspecified fetus Encounter for care of first , third trimester [facility]* Diagnosis Poor growth affecting management of mother in third trimester, single or unspecified fetus Poor growth affecting management of mother in third trimester, single or unspecified fetus- Primary [facility] Diagnosis Poor growth affecting management of mother in third trimester, single or unspecified fetus- Primary Poor growth affecting management of mother in third trimester, single or unspecified fetus [facility] Diagnosis Poor growth affecting management of mother in third trimester, single or unspecified fetus- Primary [facility] Diagnosis Poor growth affecting management of mother in third trimester, single or unspecified fetus [facility] Diagnosis growth restriction antepartum- Primary Encounter for care of first , third trimester screening for streptococcus B screening for Streptococcus B Hyperemesis affecting , antepartum [facility] Diagnosis Encounter for care of first , third trimester- Primary growth restriction antepartum Hyperemesis affecting , antepartum documented in this encounter [facility]ructionsNot on filedocumented in this encounterPro[facility] SystemInstructionsNot on filedocumented in this encounterProMer[facility] SystemInstructionsNot on filedocumented in this encounterProMercy [facility] Chief Complaint and Reason for Visit Chief Complaint Abd pain Advance Directives Advance Directive Response Recorded Date/ Time Advance Directives No October 19, 2021 7:56pm Summary Purpose Family History No Family History Records FoundNo Family History Records FoundNo Family History Records Found Additional Source Comments Care Teams (unrecognized sec tion and content) Team Status: Inactive Member Role Status Dates Brooke Rodriguez MD Primary Care Provider Active Telly Moreno DO Emergency Provider Active Team Status: Active Member Role Status Dates Brooke Rodriguez MD Primary Care Provider Active Flatwork Finisher Hand Relationship Specialty Start Date End Date Brooke Rodriguez MD [address] [place] [id number] PCP - General Family Medicine 01/14/24 Flatwork Finisher Hand Relationship Specialty Start Date End Date Brooke Rodriguez MD [address] [address] PCP - General Family Medicine 01/14/24 Flatwork Finisher Hand Relationship Specialty Start Date End Date Brooke Rodriguez MD [address] [address] PCP - General Family Medicine 01/14/24 Flatwork Finisher Hand Relationship Specialty Start Date End Date Brooke Rodriguez MD [address] [address] PCP - General Family Medicine 01/14/24 Flatwork Finisher Hand Relationship Specialty Start Date End Date Brooke Rodriguez MD [address] [address] PCP - General Family Medicine 01/14/24 Flatwork Finisher Hand Relationship Specialty Start Date End Date Brooke Rodriguez MD [address] [address] PCP - General Family Medicine 01/14/24 Flatwork Finisher Hand Relationship Specialty Start Date End Date Brooke Rodriguez MD [address] [address] PCP - General Family Medicine 01/14/24 Flatwork Finisher Hand Relationship Specialty Start Date End Date Brooke Rodriguez MD [address] [address] PCP - General Family Medicine 01/14/24 Flatwork Finisher Hand Relationship Specialty Start Date End Date Brooke Rodriguez MD [address] [place] [phone] PCP - General Family Medicine 01/14/24 Flatwork Finisher Hand Relationship Specialty Start Date End Date Brooke Rodriguez MD [address] [place] [phone] PCP - General Family Medicine 01/14/24 Flatwork Finisher Hand Relationship Specialty Start Date End Date Brooke Rodriguez Md [address] [address] PCP - General Internal Medicine 03/20/22 Flatwork Finisher Hand Relationship Specialty Start Date End Date Brooke Rodriguez Md [address] [address] PCP - General Internal Medicine 03/20/22 Flatwork Finisher Hand Relationship Specialty Start Date End Date Brooke Rodriguez MD [address] [place] [phone] PCP - General Family Medicine 01/14/24 Goals (unrecognized section and content) Goals may be documented in a n alternate sectionNot on filedocumented as of this encounterNot on filedocumented as of this encounterNot on filedocumented as of this encounterNot on filedocumented as of this encounter INFORMATION SOURCE (unrecogn ized section and content) DATE CREATED AUTHOR 11/02/2021 [facility] DATE CREATED AUTHOR AUTHOR'S ORGANIZ ATION 06/07/2024 [facility] EPIC DATE CREATED AUTHOR AUTHOR'S ORGANIZ ATION 06/10/2024 [facility] Reason for Visit (unrecogniz ed section and content) Reason Comments Growth Restriction Hyperemesis Gravidarum Reason Comments Non-stress Test FGR Hyperemesis Gravidarum Specialty Diagnoses / Procedures Referred By Contac t Referred To Contact Maternal and Medicine Diagnoses Poor growth affecting management of mother in third trimester, single or unspecified fetus Procedures nonstress test - Maternal Medicine Haseeb Fraga MD [address], [address] [place] [address] Phone: tel: fax: Maternal- Medicine at [facility] [address] [place] [address] Phone: tel: fax: Referral ID Status Reason Start Date Expiration Date V isits Requested Visits Authorized [id number] Pending Review 06/09/2024 06/09/2025 1 1 FOR RECORDS PERTAINING TO PATIENTS WHO ARE [...] BE BASED ON THE PRIMARY CLINICAL RECORDS. [facility]. provides no warranty or guarantee of the accuracy or completeness of information in this document.
[2024-06-11 18:06] VITALS: BP 124/80; PULSE 96
[2024-06-11 18:09] VITALS: TEMP 36.7
== END 2024-06-11 19:50 | disposition home or self-care (01) ==
PROVIDERS: Admitting Provider Midwife; PCP Family Medicine; Visit Provider Midwife
DX: O46.93 Antepartum hemorrhage, unspecified, third trimester (principal); Z3A.36 36 weeks gestation of pregnancy
CPT/HCPCS: 59025; 76815; 76817; 76818; G0378; G0379

== ENCOUNTER 2024-06-22 14:19 | Inpatient (IN) | payer OTHER, SELFPAY ==
[2024-06-22] VITALS (21 sets, daily range): BP systolic 106–179; BP diastolic 55–83; PULSE 49–83; TEMP 36.6–36.7; O2SAT 99
--- NOTE | 2024-06-22 14:30 | PC.NURSE ---
Arrives ambulatory to unit with c/o leaking fluid. States water broke at 1300 today, continuous leaking. Denies bleeding, reports good movement. To bathroom for urine sample and gown on, peripad shows large amount of thick, yellow-green fluid, continuously leaking, peripad saturated. Gown on, to bed for EFM and SVE
[2024-06-22 16:00] LABS: Hematocrit 36.7 % (36.0-48.0); Mean Corpuscular HGB Conc 32.7 g/dL (29.9-35.2); Mean Corpuscular Hemoglobin 29.6 pg (26.7-34.0); Mean Corpuscular Volume 90.6 fL (81.0-99.0); Mean Platelet Volume 12.7 fL (9.5-13.5); Platelet Count 141 10^3/uL (150-450); Red Blood Count 4.05 10^6/uL (4.20-5.40); Red Cell Distribution Width 14.9 % (11.0-15.0); White Blood Count 11.4 10^3/uL (4.0-11.0)
[2024-06-22] MEDS: ONDANSETRON 4 MG RAPDIS TABLET SL (16:11)
[2024-06-22 16:14] LABS: Amphetamine Screen Urine NEGATIVE (NEGATIVE); Barbiturates Screen Urine NEGATIVE (NEGATIVE); Benzodiazepines Screen Urine NEGATIVE (NEGATIVE); Buprenorphine Screen Urine NEGATIVE (NEGATIVE); Cannabinoid Screen Urine POSITIVE (NEGATIVE); Cocaine Screen Urine NEGATIVE (NEGATIVE); Methadone Screen Urine NEGATIVE (NEGATIVE); Methamphetamines Screen Urine NEGATIVE (NEGATIVE); Opiate Screen Urine NEGATIVE (NEGATIVE); Oxycodone Screen Urine NEGATIVE (NEGATIVE); Phencyclidine Screen Urine NEGATIVE (NEGATIVE); Tricyclic Antidepressant Urine NEGATIVE (NEGATIVE)
[2024-06-22] MEDS: OXYTOCIN/0.9 % SODIUM CHLORIDE 10 UNITS/500 ML PLAST..BAG 6 UNIT IV (19:56)
[2024-06-22] MEDS: LACTATED RINGER'S SOLUTION 1,000 ML 125 ML IV ×2 (19:59→23:11)
[2024-06-22] MEDS: ROPIVACAINE HCL/PF 400 MG/200 ML PREMIX 6 MG EPIDURAL (23:39)
[2024-06-23] VITALS (55 sets, daily range): BP systolic 105–151; BP diastolic 55–72; PULSE 49–190; TEMP 36.1–36.9
[2024-06-23] MEDS: LACTATED RINGER'S SOLUTION 1,000 ML 125 ML IV (03:32)
[2024-06-23] MEDS: OXYTOCIN/0.9 % SODIUM CHLORIDE 20 UNITS/1,000 ML PLAST..BAG 125 UNIT IV (09:00)
--- NOTE | 2024-06-23 09:23 | P.OBHP_ITS ---
OB - H&P: HPI History of Present Illness Chief complaint: SENT BY OB/ POSSIBILITY LABOR : 1 Para: 0 Gestational age based on last menstrual period: 37.6 Narrative: no induction, patient had SROM History of Present Dating criteria: LMP confirmed by 1st trimester US complications: hyperemesis complications comment: hyperemesis gravidarum, zofran pump, possible marijuana withdrawal Labs Blood type: O (+) positive Rubella: immune RPR/VDLR: nonreactive GBS status: negative HBsAG: negative Review of Systems ROS Status of ROS: 10 or more systems reviewed and unremarkable except as noted in history and below [facility] Medical History (Updated 06/23/24 @ 09:54 by RENNY MARTINES APRN, ALEIDA) Cannabis use, unspecified with other cannabis-induced disorder ?F12.988 - Cannabis use, unspecified with other cannabis-induced disorder (ICD-10) Hyperemesis gravidarum ?O21.0 - Mild hyperemesis gravidarum (ICD-10) Abdominal pain ?R10.9 - Unspecified abdominal pain (ICD-10) Murmur, cardiac ?R01.1 - Cardiac murmur, unspecified (ICD-10) Constipation ?K59.00 - Constipation, unspecified (ICD-10) Social History (Updated 06/22/24 @ 15:57 by Millicent Redd) Within the past year, how often did you have a drink containing alcohol: never Within the past year, how often did you have six or more drinks on one occasion: never Score interpretation: A score less than 3 is consistent with normal alcohol consumption. Non-prescribed substance use: denies use and cannabis (any form) Previous occupational history: formerly [employer] Highest level of school completed/degree received: high school graduate In a typical week, how many times do you talk on the telephone with family, friends, or neighbors: 3 or more times per week How often do you get together with friends or relatives: 3 or more times per week Little interest or pleasure in doing things: not at all Feeling down, depressed, or hopeless: not at all Feel stressed/tense/nervous/anxious/difficulty sleeping: not at all Do you think of yourself as: straight/heterosexual Gender Identity: female Meds Home Medications and Allergies Home Medications ?Medication ?Instructions ?Recorded ?Confirmed ?Type ferrous sulfate 325 mg (65 mg 325 mg PO BID #60 tabs 1 03/09/23 06/22/24 Rx iron) tablet,delayed release ondansetron 4 mg disintegrating 4 mg PO Q6H PRN nausea and 05/09/24 06/22/24 Rx tablet vomiting #20 tabs Allergies Allergy/AdvReac Type Severity Reaction Status Date / Time No Known Drug Allergies Allergy Verified 01/07/24 11:42 Exam Constitutional Vital Signs, click to edit/add: Last Vital Signs Temp 97.0 F L 06/23/24 09:09 Pulse 63 06/23/24 09:14 Resp 16 06/23/24 04:28 BP 106/55 06/23/24 02:27 Pulse Ox 99 06/22/24 14:32 O2 Del Method Room Air 06/22/24 23:44 Documenting provider has reviewed patient's vital signs: yes Common normals: no apparent distress and oriented x3 General appearance: cooperative Orientation/consciousness: Yes awake, Yes oriented to person, Yes oriented to place and Yes oriented to time HENMT Common normals: normocephalic Eye Common normals: EOMs intact bilaterally Neck & C-Spine Common normals: full ROM and no lymphadenopathy Lymph Lymphatic: no lymphadenopathy noted Chest Common normals: inspection of chest normal Respiratory Common normals: normal respiratory effort, no retractions, no use of accessory muscles, clear to auscultation bilaterally and percussion normal Effort & inspection: able to speak in complete sentences Auscultation: clear to auscultation bilaterally Cardio Common normals: regular rate and regular rhythm Rate: regular rate Rhythm: regular rhythm GI Common normals: Normal to inspection, nondistended, normoactive bowel sounds present Inspection: normal to inspection Auscultation: normoactive bowel sounds Palpation: soft Common normals: external appearance normal External Female Exam: normal appearance of the urethra Back & Pelvis General back: CVA tenderness Thoracic spine/upper back: normal to inspection Extremity Common normals: normal to inspection Neuro Common normals: oriented x3 Sensorium/orientation: awake, alert, oriented to person, oriented to place and oriented to time Psych Common normals: mental status grossly normal, thought process normal, cooperative, affect normal, speech normal, activity/motor behavior normal, denies hallucinations, denies homicidal ideation and denies suicidal ideation Attitude: calm Activity/motor behavior: appropriate eye contact Speech: normal speech Thought process: normal thought process Results Labs Labs: Short CBC 06/22/24 Range/Units 15:25 WBC 11.4 H (4.0-11.0) 10^3/uL Hgb 12.0 (12.0-16.0) g/dL Hct 36.7 (36.0-48.0) % Plt Count 141 L (150-450) 10^3/uL OB - A/P Assessment and Plan (1) Term : (2) Cyclic vomiting syndrome:
--- NOTE | 2024-06-23 10:05 | PM.OBPRCVD ---
Procedure events: Labor Augmentation Induction method: none Delivery augmentation: pitocin Delivery monitor: external FHT Route of delivery: Episiotomy Description: none L&D Laceration Description: none Estimated blood loss (mL): 100 Anesthesia type: Epidural Disposition: same day Delivery date: 06/23/24 Gender: female presentation: vertex Placental delivery description: Spontaneous and Abnormal Configuration cord description: 3 Vessels cord description comment: marginal cord insertion heart rate - 1 minute: 100 bpm or Greater respiratory effort - 1 minute: Spontaneous/Strong Cry muscle tone - 1 minute: Active Movement reflex response - 1 minute: Prompt Response color - 1 minute: Bluish Hands or Feet total score - 1 minute: 9 heart rate - 5 minute: 100 bpm or Greater respiratory effort - 5 minute: Spontaneous/Strong Cry muscle tone - 5 minute: Active Movement reflex response - 5 minute: Prompt Response color - 5 minute: Bluish Hands or Feet total score - 5 minute: 9 Labor State Duration Total Length of Latency: 19 hours and 56 minutes
[2024-06-23] MEDS: ONDANSETRON PF 4 MG/2 ML VIAL IV ×2 (11:25→17:12)
[2024-06-23] MEDS: IBUPROFEN 400 MG TABLET 800 MG PO (16:04)
[2024-06-23] MEDS: GLYCERIN/WITCH HAZEL PADS 1 PAD TOPICAL (16:05)
[2024-06-23] MEDS: BENZOCAINE/MENTHOL 85 GRAM SPRAY BOTTLE 1 APPLIC TOPICAL (16:05)
[2024-06-24] VITALS (9 sets, daily range): BP systolic 126–158; BP diastolic 66–82; PULSE 45–80; TEMP 36.5–36.9
[2024-06-24] MEDS: IBUPROFEN 400 MG TABLET 800 MG PO ×3 (00:07→20:10)
[2024-06-24 06:55] LABS: Basophils Percent Auto 0.3 % (0.2-2.0); Eosinophils Percent Auto 0.1 % (0.9-7.0); Hematocrit 32.2 % (36.0-48.0); Hemoglobin 10.6 g/dL (12.0-16.0); Immature Granulocytes Abs Auto 0.08 10^3/uL (0.00-0.03); Immature Granulocytes Pct Auto 0.5 % (0.0-0.5); Lymphocytes Absolute Auto 3.1 10^3/uL (1.2-3.8); Lymphocytes Percent Auto 20.5 % (20.5-60.0); Mean Corpuscular HGB Conc 32.9 g/dL (29.9-35.2); Mean Corpuscular Hemoglobin 29.9 pg (26.7-34.0); Mean Corpuscular Volume 90.7 fL (81.0-99.0); Monocytes Absolute Auto 0.7 10^3/uL (0.3-0.8); Monocytes Percent Auto 4.5 % (1.7-12.0); Neutrophils Percent Auto 74.1 % (43.0-75.0); Platelet Count 171 10^3/uL (150-450); Red Blood Count 3.55 10^6/uL (4.20-5.40); Red Cell Distribution Width 15.1 % (11.0-15.0); White Blood Count 14.9 10^3/uL (4.0-11.0)
--- NOTE | 2024-06-24 09:59 | PM.OBPN ---
OB - PN: Subj Subjective Patient comments: no complaints and pain well controlled [place] status: doing well Exam Constitutional Vital Signs, click to edit/add: Last Vital Signs Temp 97.7 F 06/24/24 09:01 Pulse 55 L 06/24/24 09:01 Resp 16 06/24/24 09:01 BP 127/66 06/24/24 09:01 Pulse Ox 99 06/22/24 14:32 O2 Del Method Room Air 06/24/24 08:48 Documenting provider has reviewed patient's vital signs: yes Common normals: no apparent distress Respiratory Common normals: clear to auscultation bilaterally Cardio Common normals: regular rate and regular rhythm GI Common normals: Normal to inspection, nondistended, normoactive bowel sounds present Extremity Common normals: no clubbing, cyanosis or edema and no calf tenderness Results Labs Labs: Short CBC 06/24/24 Range/Units 06:35 WBC 14.9 H (4.0-11.0) 10^3/uL Hgb 10.6 L (12.0-16.0) g/dL Hct 32.2 L (36.0-48.0) % Plt Count 171 (150-450) 10^3/uL OB - PN: A/P Assessment and Plan (1) Term : (2) Cyclic vomiting syndrome: Plan - Vaginal Delivery day: 1 Plan: routine care, discharge home and follow up 6 weeks Time Spent with Patient Time: Total time spent is greater than 50% in coordination of care (as documented) at patient's floor/unit and/or counseling patient: Total time spent with greater than 50% in coordination of care (as documented) at patient's floor/unit and/or counseling patient: less than 15 minutes
--- NOTE | 2024-06-24 15:32 | SWNOTE1 ---
SW consulted for THC use and positive drug screen on admission. SW did speak with nurse and no further concerns. Pt and father of baby appropriate with baby. SW met with pt to discuss positive drug screen on admission. Father of baby in room as well. Pt does have everything they need at home for baby. Baby is doing well. She is breast feeding and that is going well. They voiced they have great support. Father of baby does not live with her, but they are on great terms. SW and pt spoke with her about post depression and the signs. She voiced understanding. SW did speak with her about marijuana drug screen. She voiced she had hyperemisis, as she was not able to eat and nauseous. She did smoke it here and there. No plans of continuing use at discharge. SW advised that SW has to make report to CPS. They voiced understanding. No further questions at this time. BELKIS called and made report to [facility] CPS. HIPAA form completed and sent to
[2024-06-24] MEDS: DOCUSATE SODIUM 100 MG CAPSULE PO (20:11)
--- NOTE | 2024-06-25 07:47 | PM.OBPN ---
OB - PN: Subj Subjective Patient comments: no complaints and pain well controlled [place] status: doing well Exam Constitutional Vital Signs, click to edit/add: Last Vital Signs Temp 97.9 F 06/24/24 23:54 Pulse 45 L 06/24/24 23:58 Resp 16 06/24/24 23:57 BP 137/71 06/24/24 23:58 Pulse Ox 99 06/22/24 14:32 O2 Del Method Room Air 06/24/24 23:57 Documenting provider has reviewed patient's vital signs: yes Common normals: no apparent distress Respiratory Common normals: normal respiratory effort and clear to auscultation bilaterally Cardio Common normals: regular rate and regular rhythm GI Common normals: Normal to inspection, nondistended, normoactive bowel sounds present Extremity Common normals: no clubbing, cyanosis or edema and no calf tenderness OB - PN: A/P Assessment and Plan (1) Term : (2) Cyclic vomiting syndrome: Plan - Vaginal Delivery day: 2 Plan: routine care, discharge home and follow up 6 weeks Time Spent with Patient Time: Total time spent is greater than 50% in coordination of care (as documented) at patient's floor/unit and/or counseling patient: Total time spent with greater than 50% in coordination of care (as documented) at patient's floor/unit and/or counseling patient: less than 15 minutes
[2024-06-25 08:01] VITALS: BP 117/74; PULSE 51
[2024-06-25] MEDS: IBUPROFEN 400 MG TABLET 800 MG PO (08:05)
[2024-06-25] MEDS: DOCUSATE SODIUM 100 MG CAPSULE PO (08:05)
[2024-06-27 15:09] LABS: Cannabinoid Positive (.); Carboxy THC Conf, MS, UR >750 ng/mL (Cutoff=10)
== END 2024-06-25 14:00 | disposition home or self-care (01) | DRG 806 ==
PROVIDERS: Admitting Provider Midwife; PCP Family Medicine; Visit Provider Midwife
DX: O42.913 Preterm premature rupture of membranes, unspecified as to length of time between rupture and onset of labor, third trimester (principal); O99.324 Drug use complicating childbirth; Z37.0 Single live birth; Z3A.37 37 weeks gestation of pregnancy; F12.90 Cannabis use, unspecified, uncomplicated; O99.334 Smoking (tobacco) complicating childbirth; F17.210 Nicotine dependence, cigarettes, uncomplicated
CPT/HCPCS: 36415; 51702; 59050; 59410; 80307; 80349; 85025; 85027; 86850; 86900; 86901; 88307; J2405; J2795; Q0162